=== PATIENT | male | born 1955 | race Caucasian/White ===

== ENCOUNTER 2021-01-03 10:02 | Emergency (ER) | payer OTHER, SELFPAY ==
[2021-01-03 10:25] VITALS: BP 125/87; PULSE 63; RESP 18; TEMP 36.6; O2SAT 100
--- NOTE | 2021-01-03 10:26 | ED.SKABFB ---
HPI - Skin/Abscess/Foreign Bdy General Chief complaint: Skin/Abscess/Foreign Body Stated complaint: splinter in arm Source: patient Mode of arrival: ambulatory Limitations: no limitations History of Present Illness HPI narrative: Patient is a 65-year-old male who presents with a foreign body in his arm. Patient reports he was cleaning out attic and hit rafters. He reports splinter to left upper arm. Abrasion noted. Palpable foreign body. Patient reports he is up-to-date on tetanus, he has no significant medical history or no known allergies to medications. MD complaint: foreign body Related Data Allergies Allergy/AdvReac Type Severity Reaction Status Date / Time No Known Allergies Allergy Verified 01/03/21 10:25 Review of Systems Review of Systems: CONSTITUTIONAL: Denies fever, chills, or sweats. EYES: Denies visual changes, redness, or discharge. ENT: Denies rhinorrhea, congestion, sore throat, or otalgia. CARDIOVASCULAR: Denies chest pain, palpitations, or edema. RESPIRATORY: Denies cough or dyspnea. GASTROINTESTINAL: Denies abdominal pain, nausea, vomiting, or diarrhea. GENITOURINARY: Denies dysuria or hematuria. SKIN: Foreign body in left upper arm MUSCULOSKELETAL: Denies back pain, joint pain, or myalgia. NEUROLOGIC: Denies headache, numbness, dizziness, or weakness. PSYCHIATRIC: Denies anxiety or depression. [facility] Past Medical History Medical History (Updated 01/03/21 @ 11:04 by MELANIE Newman) No significant past medical history Surgical History Surgical History Hx of cholecystectomy Social History Social History (Updated 01/03/21 @ 10:36 by MELANIE Newman) Smoking status: Never smoker Alcohol intake: current Alcohol use details: occasional Substance use: never Living arrangements: with family Occupation/Education: retired Comments At the time of signature, I have reviewed and agree with nursing past medical, surgical, social, and family history unless otherwise noted. Please see nursing chart for further information. There is no relevant family history pertinent to the presenting complaint. Exam Narrative: GENERAL: Well-appearing, well-nourished, and in no acute distress. HEAD: Normocephalic, atraumatic. EYES: No redness or drainage. ENT: Mucous membranes pink and moist. CHEST: No respiratory distress. HEART: Regular rate and rhythm. EXTREMITIES: Normal range of motion. No edema. SKIN: Palpable foreign body under skin and left upper arm NEURO: No focal deficits. Alert and oriented x3. Gait steady. PSYCH: Normal affect. No signs of depression or anxiety. Course Vital Signs Vital signs: Vital Signs Temperature 36.6 C 01/03/21 10:25 Pulse Rate 63 01/03/21 10:25 Respiratory Rate 18 01/03/21 10:25 Blood Pressure 125/87 01/03/21 10:25 Pulse Oximetry 100 01/03/21 10:25 Temperature 36.6 C 01/03/21 10:25 Pulse Rate 63 01/03/21 10:25 Respiratory Rate 18 01/03/21 10:25 Blood Pressure 125/87 01/03/21 10:25 Pulse Oximetry 100 01/03/21 10:25 Reviewed. Patient has been instructed to follow-up with his PCP regarding his blood pressure. Procedures Foreign Body Removal Foreign Body #1: Foreign Body Removal Date: 01/03/21 Foreign Body Removal Time: 10:59 Time Out Performed: yes Site: left and upper extremity Description of foreign body: other (Splinter 1 cm long) Sedation/Analgesia: other (1% lidocaine) Technique: removal with forceps, irrigation and other (Small .5 cm incision with #11 blade. Approximate 1 cm piece of wood removed, wound flushed and 1 suture (#5 Ethilon) placed after removal) Confirmed by:: patient report Complications: none Foreign Body Removal Narrative: 1.5 ml of 1% lidocaine injected at site on left upper arm. Small .5 cm incision with #11 blade. Approximate 1 cm piece of wood removed, wound flush
[2021-01-03 10:35] VITALS: BP 125/87; PULSE 63; RESP 18; TEMP 36.6; O2SAT 100
== END 2021-01-03 11:12 | disposition home or self-care (01) ==
PROVIDERS: Emergency Provider Nurse Practitioner
DX: S41.142A Puncture wound with foreign body of left upper arm, initial encounter (principal); W45.8XXA Other foreign body or object entering through skin, initial encounter; I20.9 Angina pectoris, unspecified; M19.042 Primary osteoarthritis, left hand; M19.041 Primary osteoarthritis, right hand
CPT/HCPCS: 10120; 99213; G0463

== ENCOUNTER 2024-05-15 13:21 | Observation (INO) | payer OTHER, SELFPAY ==
[2024-05-15] VITALS (12 sets, daily range): BP systolic 119–171; BP diastolic 69–88; PULSE 51–88; RESP 15–20; TEMP 36.4–37; O2SAT 95–100; BMI 27.9
--- NOTE | ~2024-05-15 | XR_ITS ---
EXAMINATION: XR chest 2V DATE: 05/15/2024 14:18 INDICATION: Chest pain. TECHNIQUE: Frontal and lateral views of the chest were obtained. COMPARISON: Chest 2 views 03/02/17, chest CT 03/02/17 FINDINGS: There is no pneumonia, pleural effusion, or pneumothorax. The heart size is normal. There i s a suture anchor in right shoulder. There is mild chronic anterior wedging of multiple thoracic vert ebral bodies. IMPRESSION: 1. No acute cardiopulmonary disease. Reviewed, dictated and finalized at location A. IN[facility] FLOOR MANAGER
--- NOTE | 2024-05-15 13:23 | ECG_ITS ---
Test Date: 2024-05-15 13:28:55 Measurements Intervals [place] Rate: 83 P: 18 KS: 165 QRS: -6 QRSD: 81 T: 12 QT: 336 QTc: 396 Interpretive Statements SINUS RHYTHM POSSIBLE INFERIOR MYOCARDIAL INFARCTION , PROBABLY OLD BASELINE ARTIFACT- I, II, III, AVR, AVL, AVF, V1-V2 ABNORMAL ECG No previous ECG available for comparison Electronically Signed On 05-15-2024 13:49:18 CAR [employer]ER by Sathya Britt D.O.
--- NOTE | 2024-05-15 13:33 | ED_ITS ---
HPI - Chest Pain General Chief Complaint: Chest Pain <Corie Tafoya PA-C - Last Filed: 05/15/24 17:12> Stated Complaint: CP <Corie Tafoya PA-C - Last Filed: 05/15/24 17:12> Time Seen by Provider: 05/15/24 13:33 <Corie Tafoya PA-C - Last Filed: 05/15/24 17:12> Focused HPI: This is a 69 year old male that presents to the ER for chest pain. Ongoing over the last hour. Reports he had walked up a hill prior to it starting. Reports he felt like he was having indigestion, chest tightness. He is not a smoker, no family history of CAD. Reports he had a cardiac cath about 4 years ago that was clean. GENERAL: Well-appearing, well-nourished, and in no acute distress. HEAD: Normocephalic, atraumatic. CHEST: Clear to auscultation. ?No respiratory distress. HEART: Regular rate and rhythm.? NEURO: ?Alert and oriented x3. Patient screened in triage and initial orders placed.? ?Additional care and disposition to be based upon?diagnostic testing and treatment. <Corie Tafoya PA-C - Last Filed: 05/15/24 17:12> History of Present Illness HPI narrative: Patient is a 69-year-old gentleman presents emergency department chief complaint of chest pain. Patient reports that he was walking up a hill and started having discomfort in his chest radiating to his arms. The patient states that he had a catheterization about 4 years ago that was negative < Felix Elliott MD - Last Filed: 05/15/24 16:35> Related Data Allergies/Adverse Reactions: Allergies Allergy/AdvReac Type Severity Reaction Status Date / Time No Known Allergies Allergy Verified 05/15/24 13:36 <Corie Tafoya PA-C - Last Filed: 05/15/24 17:12> Review of Systems 2 Review of Systems: A 10 system review of systems was completed on the patient and is negative except for what is stated in the HPI. Nursing and ancillary documentation was reviewed. <Felix Elliott MD - Last Filed: 05/15/24 16:35> PMFSH Past Medical History Medical History: Medical History No significant past medical history <Corie Tafoya PA-C - Last Filed: 05/15/24 17:12> Surgical History Surgical History: Surgical History Hx of cholecystectomy <Corie Tafoya PA-C - Last Filed: 05/15/24 17:12> Social History Social History: Social History Smoking status: Never smoker Alcohol intake: current Alcohol use details: occasional Substance use: never Living arrangements: with family Occupation/Education: retired <Corie Tafoya PA-C - Last Filed: 05/15/24 17:12> Exam 2 Narrative: GENERAL: Well-appearing, well-nourished, and in no acute distress. HEAD: Normocephalic, atraumatic. EYES: PERRLA and EOMI. ENT: Nares clear, no rhinorrhea or epistaxis. Mucous membranes moist. NECK: Supple. CHEST: Clear to auscultation. No respiratory distress. HEART: Regular rate and rhythm. No murmur heard. Normal peripheral pulses. ABDOMEN: Soft, nontender, nondistended, normal active bowel sounds. EXTREMITIES: Normal range of motion. No edema. SKIN: Warm, dry, no rash. NEURO: No focal deficits. Alert and oriented x3. PSYCH: Normal mood and affect. <Felix Elliott MD - Last Filed: 05/15/24 16:35> Course Vital Signs Vital signs: Vital Signs Temperature 97.8 F 05/15/24 13:26 Pulse Rate 88 05/15/24 13:26 Respiratory Rate 20 05/15/24 13:26 Blood Pressure 156/83 H 05/15/24 13:26 Pulse Oximetry 100 05/15/24 13:26 Oxygen Delivery Room Air 05/15/24 13:26 Temperature 97.8 F 05/15/24 13:26 Pulse Rate 51 L 05/15/24 16:36 Respiratory Rate 17 05/15/24 16:36 Blood Pressure 139/80 05/15/24 16:36 Pulse Oximetry 100 05/15/24 16:36 Oxygen Delivery Room Air 05/15/24 15:22 <Corie Tafoya PA-C - Last Filed: 05/15/24 17:12> Vital Signs Temperature 97.8 F 05/15/24 13:26 Pulse Rate 88 05/15/24 13:26 Respiratory Rate 20 05/15/24 13:26 Blood Pressure 156/83 H 05/15/24 13:26 Pulse Oximetry 100 05/15/24 13:26 Oxygen Delivery Room Air 05/15/24 13:26 Temperature 97.8 F 05/15/24 13:26 Pulse Rate 51 L 05/15/24 16:36 Respiratory Rate 17 05/15/24 16:36 Blood Pressure 139/80 05/15/24 16:36 Pulse Oximetry 100 05/15/24 16:36 Oxygen Delivery Room Air 05/15/24 15:22 <Felix Elliott MD - Last Filed: 05/15/24 16:35> MDM - Chest Pain MDM Narrative Medical decision making narrative: Differential diagnosis includes ACS, unstable angina, exertional angina The laboratory studies were obtained on the patient showed a normal CBC normal CMP initial troponin was negative EKG showed no acute ischemic changes Given the patient was having significant symptoms case was discussed with the hospital and will be admitted for observation <Corie Tafoya PA-C - Last Filed: 05/15/24 17:12> Differential diagnosis includes ACS, unstable angina, exertional angina The laboratory studies were obtained on the patient showed a normal CBC normal CMP initial troponin was negative EKG showed no acute ischemic changes Given the patient was having surgical symptoms case was discussed with the hospital and will be admitted for observation <Felix Elliott MD - Last Filed: 05/15/24 16:35> Lab Data Result diagrams: 05/15/24 13:35 05/15/24 13:35 <Corie Tafoya PA-C - Last Filed: 05/15/24 17:12> Labs: Lab Results 05/15/24 05/15/24 Range/Units 13:35 16:05 WBC 8.1 (4.5-10.0) K/mm3 RBC 5.10 (4.6-6.20) M/mm3 Hgb 14.2 (14.0-18.0) g/dL Hct 42.7 (42.0-52.0) % MCV 83.7 (80-100) fl MCH 27.8 (26-34) pg MCHC 33.3 (32-36) g/dl RDW 13.9 (11.5-14.5) % Plt Count 295 (150-375) k/mm3 MPV 9.3 (7.4-10.4) fl Immature Gran % (Auto) 0.4 (0-0.5) % Neut % (Auto) 62.2 (45.5-73.1) % Lymph % (Auto) 27.5 (18.3-44.2) % Webster % (Auto) 7.6 (2.6-8.5) % Eos % (Auto) 1.6 (0-4.4) % Baso % (Auto) 0.7 (0.2-1.2) % Lymph # (Auto) 2.23 (0.9-3.2) K/mm3 [place] # (Auto) 0.6 (0.1-0.6) K/mm3 Eos # (Auto) 0.1 (0-0.3) K/mm3 Baso # (Auto) 0.1 (0.0-0.1) K/mm3 Abs Immat Gran (auto) 0.03 (0.00-0.031) K/mm3 Absolute Neuts (auto) 5.0 (1.3-6.7) K/mm3 Absolute Nucleated RBC 0.000 (0.0-0.012) K/mm3 Nucleated RBC % 0.0 (0.0-0.2) % PT 13.8 (11.1-14.7) Seconds INR 1.0 APTT 33.4 (22.3-36.8) Seconds Sodium 139 (137-145) mmol/L Potassium 4.4 (3.4-5.0) mmol/L Chloride 103 (98-107) mmol/L Carbon Dioxide 22 (22-30) mmol/L Anion Gap 14 H (4-12) mmol/L BUN 27 H (9-20) mg/dL Creatinine 0.99 (0.7-1.3) mg/dL Estim Creat Clear Calc 55 ml/min Estimated GFR > 60 (59 - ) Glucose 113 H (65-110) mg/dL Calcium 9.4 (8.4-10.2) mg/dL Total Bilirubin 0.7 (0.2-1.3) mg/dL AST 28 (17-59) U/L ALT 25 (6-50) U/L Alkaline Phosphatase 79 (38-126) U/L Troponin I < 0.012 0.017 D (0.000-0.034) ng/mL Total Protein 7.0 (6.3-8.2) g/dL Albumin 4.3 (3.5-5.1) g/dL Lipase 66 (23-300) U/L <Corie Tafoya PA-C - Last Filed: 05/15/24 17:12> Lab Results 05/15/24 05/15/24 Range/Units 13:35 16:05 WBC 8.1 (4.5-10.0) K/mm3 RBC 5.10 (4.6-6.20) M/mm3 Hgb 14.2 (14.0-18.0) g/dL Hct 42.7 (42.0-52.0) % MCV 83.7 (80-100) fl MCH 27.8 (26-34) pg MCHC 33.3 (32-36) g/dl RDW 13.9 (11.5-14.5) % Plt Count 295 (150-375) k/mm3 MPV 9.3 (7.4-10.4) fl Immature Gran % (Auto) 0.4 (0-0.5) % Neut % (Auto) 62.2 (45.5-73.1) % Lymph % (Auto) 27.5 (18.3-44.2) % [place] % (Auto) 7.6 (2.6-8.5) % Eos % (Auto) 1.6 (0-4.4) % Baso % (Auto) 0.7 (0.2-1.2) % Lymph # (Auto) 2.23 (0.9-3.2) K/mm3 [place] # (Auto) 0.6 (0.1-0.6) K/mm3 Eos # (Auto) 0.1 (0-0.3) K/mm3 Baso # (Auto) 0.1 (0.0-0.1) K/mm3 Abs Immat Gran (auto) 0.03 (0.00-0.031) K/mm3 Absolute Neuts (auto) 5.0 (1.3-6.7) K/mm3 Absolute Nucleated RBC 0.000 (0.0-0.012) K/mm3 Nucleated RBC % 0.0 (0.0-0.2) % PT 13.8 (11.1-14.7) Seconds INR 1.0 APTT 33.4 (22.3-36.8) Seconds Sodium 139 (137-145) mmol/L Potassium 4.4 (3.4-5.0) mmol/L Chloride 103 (98-107) mmol/L Carbon Dioxide 22 (22-30) mmol/L Anion Gap 14 H (4-12) mmol/L BUN 27 H (9-20) mg/dL Creatinine 0.99 (0.7-1.3) mg/dL Estim Creat Clear Calc 55 ml/min Estimated GFR > 60 (59 - ) Glucose 113 H (65-110) mg/dL Calcium 9.4 (8.4-10.2) mg/dL Total Bilirubin 0.7 (0.2-1.3) mg/dL AST 28 (17-59) U/L ALT 25 (6-50) U/L Alkaline Phosphatase 79 (38-126) U/L Troponin I < 0.012 0.017 D (0.000-0.034) ng/mL Total Protein 7.0 (6.3-8.2) g/dL Albumin 4.3 (3.5-5.1) g/dL Lipase 66 (23-300) U/L <Felix Elliott MD - Last Filed: 05/15/24 16:35> Imaging Data Radiologist's impression: ITS Impressions Chest X-Ray 05/15/24 14:23 IMPRESSION: 1. No acute cardiopulmonary disease. <Corie Tafoya PA-C - Last Filed: 05/15/24 17:12> Critical Care Time Critical Care Time Critical Care Time: No <Corie Tafoya PA-C - Last Filed: 05/15/24 17:12> Discharge Plan Discharge Clinical Impression: Chest pain Qualifiers: Chest pain type: unspecified Qualified Code(s): R07.9 - Chest pain, unspecified <Corie Tafoya PA-C - Last Filed: 05/15/24 17:12> Patient Disposition: Still a Patient <Corie Tafoya PA-C - Last Filed: 05/15/24 17:12> Condition: Stable <Corie Tafoay PA-C - Last Filed: 05/15/24 17:12> Patient Language: Togolese <Corie Tafoya PA-C - Last Filed: 05/15/24 17:12> Prescriptions: No Action cephalexin 500 mg capsule 500 mg PO QID 5 Days Qty: 20 0RF <Corie Tafoya PA-C - Last Filed: 05/15/24 17:12> Follow-up/Referrals: PHYSICIAN NOT ON STAFF,NONSTAFF [Non-Staff] - <Corie Tafoya PA-C - Last Filed: 05/15/24 17:12> Time of Disposition: 16:33 <Corie Tafoya PA-C - Last Filed: 05/15/24 17:12> 16:33 <Felix Elliott MD - Last Filed: 05/15/24 16:35> Quality HEART score for chest pain patients History: moderately suspicious <Croie Tafoya PA-C - Last Filed: 05/15/24 17:12> ECG: non specific repolarization disturbance/LBTB/PM <Corie Tafoya PA-C - Last Filed: 05/15/24 17:12> Age: > or = to 65 years <Corie Tafoya PA-C - Last Filed: 05/15/24 17:12> Risk factors: no risk factors known <Corie Tafoya PA-C - Last Filed: 05/15/24 17:12> Troponin: < or = to 1x normal limit <Corie Tafoya PA-C - Last Filed: 05/15/24 17:12> Heart score: 4 <Corie Tafoya PA-C - Last Filed: 05/15/24 17:12>
[2024-05-15 13:42] LABS: Basophils Absolute Auto 0.1 K/mm3 (0.0-0.1); Basophils Percent Auto 0.7 % (0.2-1.2); Eosinophils Absolute Auto 0.1 K/mm3 (0-0.3); Eosinophils Percent Auto 1.6 % (0-4.4); Hematocrit 42.7 % (42.0-52.0); Hemoglobin 14.2 g/dL (14.0-18.0); Immature Granulocyte Absolute 0.03 K/mm3 (0.00-0.031); Immature Granulocyte Percent A 0.4 % (0-0.5); Lymphocytes Absolute Auto 2.23 K/mm3 (0.9-3.2); Lymphocytes Percent Auto 27.5 % (18.3-44.2); Mean Corpuscular HGB Conc 33.3 g/dl (32-36); Mean Corpuscular Hemoglobin 27.8 pg (26-34); Mean Corpuscular Volume 83.7 fl (80-100); Mean Platelet Volume 9.3 fl (7.4-10.4); Monocytes Absolute Auto 0.6 K/mm3 (0.1-0.6); Monocytes Percent Auto 7.6 % (2.6-8.5); Neutrophils Percent Auto 62.2 % (45.5-73.1); Platelet Count Result 295 k/mm3 (150-375); Red Cell Distribution Width 13.9 % (11.5-14.5); White Blood Count 8.1 K/mm3 (4.5-10.0)
[2024-05-15 13:54] LABS: Prothrombin Time 13.8 Seconds (11.1-14.7)
[2024-05-15 13:55] LABS: Partial Thromboplastin Time 33.4 Seconds (22.3-36.8)
[2024-05-15 13:56] LABS: Alanine Aminotransferase 25 U/L (6-50); Albumin Level 4.3 g/dL (3.5-5.1); Alkaline Phosphatase 79 U/L (38-126); Anion Gap 14 mmol/L (4-12); Aspartate Amino Transferase 28 U/L (17-59); Bilirubin,Total 0.7 mg/dL (0.2-1.3); Blood Urea Nitrogen 27 mg/dL (9-20); Calcium 9.4 mg/dL (8.4-10.2); Carbon Dioxide 22 mmol/L (22-30); Chloride 103 mmol/L (98-107); Estimated CRCL calculation 55 ml/min; Estimated Glomerular Filt Rate > 60; Glucose 113 mg/dL (65-110); Lipase 66 U/L (23-300); Potassium 4.4 mmol/L (3.4-5.0); Sodium 139 mmol/L (137-145)
[2024-05-15 14:05] LABS: Troponin I < 0.012 ng/mL (0.000-0.034)
--- OUTSIDE RECORDS SUMMARY | 2024-05-15 15:03 | XMS_ITS | Encounter Summary ---
Author Organization [facility] Address [address] [address] Care Team Providers Care Election Clerk Name Role Phone Elmer Mandujano MD Primary Care Provider + Nataliia Thomas RN Unavailable [phone] Elmer Mandujano MD Primary Care Provider + Fish Aguilera MD Primary Care Provider [phone] Encounter Details Date Type Department Care Team (Late st Contact Info) Description 05/11/2018 Lab Requisition [facility] Care D[facility] Lab [address], [facility] [place] [address] Brina Franco DO [address] [place] [address] Social History Tobacco Use Types Packs/Day Years Used Date Smoking Tobacco: Never Smokeless Tobacco: Never Alcohol Use Standard Drinks/Week Comments Yes 3.3 (1 standard drink = 0.6 oz p ure alcohol) occ Sex and Gender Information Value Date Recorded Sex Assigned at Not on file Gender Identity Not on file Sexual Orientation Not on file documented as of this encounter Functional Status Functional Status Response Date of Assess ment Is person deaf or have serious hearing difficult y? No 08/01/2016 Is person blind or have serious difficulty seein g? No 08/01/2016 Does person have serious dif ficulty walking/climbing stairs? No 08/01/2016 Does person have difficulty dressing/bathing? No 08/01/2016 Does person have difficulty doing errands alone? No 08/01/2016 Cognitive Status Response Date of Assessm ent Does person have difficulty concentrating/remembering/making decisions? No 08/01/2016 documented as of this encounter Plan of Treatment Upcoming Encounters Date Type Department Care Team (Late st Contact Info) Description 10/08/2024 11:00 AM CDT [facility] [address] [place] [address] Sanchez Becerril MD [address] [place] [address] documented as of this encounter Procedures Procedure Name Priority Date/Time Associated Diagnosis Comments DERMATOPATH TECHNICAL REPORT Routine 05/10/2018 12:00 AM WOOD CRAFTSMAN documented in this encounter Results * DERMATOPATH TECHNICAL REPORT (05/10/2018 12:00 AM WOOD CRAFTSMAN) Case Report Dermatopathology Report Case: [id number] Authorizing Provider: Brina Franco DO Collected: 05/10/2018 12:00 AM Pathologist: Maria Elena Chan MD Received: 05/11/2018 06:27 AM Specimen: Skin, right post shoulder 9 11:13 AM [facility] Clinical History Crusted pink papule. ISK R/O SCC non-healing. 9 11:13 AM [facility]MAT[facility] Gross Description Specimen A: Received is one formalin filled container labeled with the patient's name and designated right post shoulder. The specimen consists of a shave measuring [id number]. Jar 0. [facility] Dermatopathology Laboratory performed the technical component only. 9 11:13 AM [facility] Embedded Images 11:13 AM [facility]MAT[facility] DISCLAIMER An external and internal positive and negative controls are appropriate for the histochemical, immunohistochemical and immunofluorescence stain(s) in this case (if any), except where stated explicitly. The performance characteristics of the stain(s) cited in this report were developed and its performance characteristic determined by the Dermatopathology Laboratory at [facility], directed by Dr. Jessika Andrade. These tests need not be, and therefore are not, approved by the [place] Food and Drug Administration. The tests are used for clinical purposes. 9 11:13 AM [facility] Pathology/Cytolog y TISSUE SPECIMEN FROM SKIN / Unknown 05/10/2018 05/11/2018 6:27 AM WOOD CRAFTSMAN Brina Franco DO LAB - PATHOLOGY/C YTOLOGY ORDERABLES DERMATOPATHOLOGY LABORATORY [facility] - Department of Dermatology [address] Lab [address] [phone] documented in this encounter Visit Diagnoses Not on filedocumented in this encounter Care Teams Election Clerk Relationship Specialty Start Date End Date Elmer Mandujano MD [address] [place] [address] [place] [phone] PCP - General Internal Medicine 09/05/12 01/15/23 Elmer Mandujano MD [address] [place] [address] [place] [phone] PCP - General Internal Medicine 01/16/23 03/28/24 Fish Aguilera MD [facility] [address] [place], [place] [id number] PCP - General Internal Medicine 03/29/24 Nataliia Thomas RN Heel Pricker 08/25/14 documented as of this encounter
--- OUTSIDE RECORDS SUMMARY | 2024-05-15 15:03 | XMS_ITS | Clinical Summary ---
Author Organization [facility] Address [address] [place] [address] Care Team Providers Care Health Manager Name Role Phone Elmer Mandujano MD Primary Care Provider [phone] Allergies No known active allergies Medications sildenafil 20 MG tablet TAKE 2 TO 5 TABLETS BY MOUTH ONE HOUR BEFORE SEX. MAXIMUM DAILY DOSE IS 5 TABLETS 07/10/2021 Active ibuprofen (MOTRIN) 200 MG tablet Take 200 mg by mouth every 6 (six) hours as needed for Pain. Active Active Problems No known active problems Family History Medical History Relation Comments Alzheimers Father Relation Status Comments Father Mother Social History Tobacco Use Types Packs/Day Years Used Date Smoking Tobacco: Never Smokeless Tobacco: Never Tobacco Cessation:Counseling Given: No Comments:not a smoker Alcohol Use Standard Drinks/Week Comments Yes 1.7 (1 standard drink = 0.6 oz p ure alcohol) PHQ-2 Answer Date Recorded PHQ-2 Score - If the patient scores above 3, please move on to questions 3-9 0 05/17/2021 Sex and Gender Information Value Date Recorded Sex Assigned at Not on file Legal Sex Male 7:27 PM CDT Gender Identity Male 05/14/2021 8:47 AM INFORMATION TECHNOLOGY SPECIALIST Sexual Orientation Straight 05/14/2021 8: 47 AM INFORMATION TECHNOLOGY SPECIALIST Last Filed Vital Signs Vital Sign Reading Time Taken Comments Blood Pressure 133/82 01/10/2022 9:20 AM CDT Pulse 77 01/10/2022 9:20 AM CDT Temperature 36.6 C (97.9 F) 01/10/2022 9:20 AM CDT Respiratory Rate - - Oxygen Saturation - - Inhaled Oxygen Concentration - - Weight 71.9 kg (158 lb 9.6 oz) 01/10/2022 9:20 A M CDT Height 167.6 cm (5' 6 ) 01/10/2022 9:20 AM CDT Body Mass Index 25.6 01/10/2022 9:20 AM CDT Plan of Treatment Health Maintenance Due Date Last Done Comments Colorectal Cancer Screening Colonoscopy (10 Years) 1953 Hepatitis C 1971 DTaP, Tdap and Td Vaccines (1 - Tdap) 1972 Annual Medicare Wellness Visit 2018 Pneumococcal Vaccine: 65+ Years (2 of 2 - PCV) 01/19/2021 01/20/2020 COVID-19 Vaccine (3 - season) 2023 11/30/2020, 11/09/2020 Influenza Adult (#1) 2023 02/01/2021, 01/20/20 20 RSV Immunization or 60+ Years (1 - 1-dose 75+ series) 2028 Zoster Vaccines Completed 12/14/2018, 04/2018, 09/25/2018, Additional history exists Meningococcal B Vaccine Aged Out No l onger eligible based on patient's age to complete this topic Meningococcal Vaccine Aged Out No maria de jesus sunni eligible based on patient's age to complete this topic RSV Immunizations Under 20 Months Aged Out No longer eligible based on patient's age to complete this topic Insurance [employer] Care Teams Health Manager Relationship Specialty Start Date End Date Elmer Mandujano MD [address] [place] [id number] PCP - General INTERNAL MEDICINE 07/31/20
--- OUTSIDE RECORDS SUMMARY | 2024-05-15 15:03 | XMS_ITS | Clinical Summary ---
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 Gender Identity Not on file Sexual Orientation Not on file Last Filed Vital Signs Vital Sign Reading Time Taken Comments Blood Pressure 110/61 07/29/2016 2:54 PM CDT Pulse 68 07/29/2016 2:54 PM CDT Temperature 36.9 C (98.4 F) 07/29/2016 2:54 PM CDT Respiratory Rate 18 07/29/2016 2:54 PM CDT Oxygen Saturation 99% 07/29/2016 2:54 PM CDT Inhaled Oxygen Concentration - - Weight 72.6 kg (160 lb) 07/29/2016 2:54 PM CDT Height 167.6 cm (5' 6 ) 07/29/2016 2:54 PM CDT Body Mass Index 25.82 07/29/2016 2:54 PM CDT Plan of Treatment Health Maintenance Due Date Last Done Comments DTAP/TDAP/TD VACCINES (1 - Tdap) 1972 COLORECTAL SCREENING 1998 Colorectal Cancer Screening 1998 FIT-DNA Q 3 years 1998 FIT/FOBT Q 1 year 1998 Flex Sig/CT Colonography Q 5 years 1998 PNEUMOCOCCAL VACCINE 65+ YEARS (1 of 1 - PCV) 04/02/19 04 ZOSTER VACCINE (1 of 2) 2003 INFLUENZA VACCINE (#1) 2023 RSV VACCINE (60+ or ) (1 - 1-dose 75+ series) 2028 Insurance [facility] [id number] [facility] Address: [facility] [id number] [place] [address] Care Teams Plunger Scoop Operator Relationship Specialty Start Date End Date Jona Wall MD [address] [phone] PCP - General 09/06/04
--- OUTSIDE RECORDS SUMMARY | 2024-05-15 15:03 | XMS_ITS | Clinical Summary ---
Author Organization [facility] Address [address] [place] [address] Care Team Providers Care Director Stars Name Role Phone Nataliia Thomas RN Unavailable [phone] Fish Aguilera MD Primary Care Provider [phone] Source Comments [facility],non-owned Affiliates and Associated Physician Practices is amultiple site organization consisting of ambulatory clinics and hospital sitesin [place], [place], [place] and [place]. This disclosure is being madepursuant to the Care Everywhere program and may not contain all information available regarding this patient. Last updated 17.[facility] Allergies No known active allergies Medications * Be aware that medications may not be up to date on this document. Alwaysverify current medications with the patient. Medication Sig Dispensed Refills Start Date End Date Status Flomax 0.4 MG capsule TAKE 1 CAPSULE BY MOUTH ONCE DAILY HALF AN HOUR FOLLOWING THE SAME MEAL EACH DAY 03/06/2024 Active venlafaxine XR 24hr (Effexor XR) 75 MG capsule Take 1 (one) capsule by mouth daily with breakfast 30 capsule 5 04/01/2024 Active guaiFENesin ER 12hr (Mucinex) 600 MG tablet Take by mouth every 12 hours 03/21/2024 04/19/2024 Active Problems Problem Noted Date Diagnosed Date Chest pain 07/30/2016 Acute diverticulitis of intestine 08/24/2014 Anxiety Encounters Date Type Department Care Team Description 04/01/2024 3:00 PM CYCLING INSTRUCTOR Office Visit [facility] Neurosciences [address] [place] [address] Sanchez Becerril MD Vestibular migraine (Primary Dx); Ocular migraine; Mild cerebral atrophy (HCC); RBD (REM behavioral disorder); Idiopathic peripheral neuropathy 02/13/2024 10:00 AM CYCLING INSTRUCTOR - 02/13/2024 11:59 PM CYCLING INSTRUCTOR Hospital Encounter [facility] [address], [address] [place] [address] Sanchez Becerril MD Discharge Disposition: Home or Self Care from Last 3 Months Family History Medical History Relation Name Comments Cancer - Prostate Father Hypertension Mother Cancer - Colon Neg Hx Relation Name Status Comments Father Mother Social History Tobacco [...] Sign Reading Time Taken Comments Blood Pressure 120/74 04/01/2024 3:02 PM CYCLING INSTRUCTOR Pulse 73 04/01/2024 3:02 PM CYCLING INSTRUCTOR Temperature 36.6 C (97.9 F) 08/01/2016 12:01 PM CDT Respiratory Rate 16 08/01/2016 12:01 PM CDT Oxygen Saturation 99% 08/01/2016 12:01 PM CDT Inhaled Oxygen Concentration - - Weight 78.9 kg (174 lb) 04/01/2024 3:02 PM CYCLING INSTRUCTOR Height 167.6 cm (5' 6 ) 04/01/2024 3:02 PM CYCLING INSTRUCTOR Body Mass Index 28.08 04/01/2024 3:02 PM CYCLING INSTRUCTOR Plan of Treatment Upcoming Encounters Date Type Department Care Team (Late st Contact Info) Description 10/08/2024 11:00 AM CDT Office Visit [facility] [address] [place] [address] Sanchez Becerril MD [address] [place] [address] Health Maintenance Due Date Last Done Comments COLOGUARD (AGES 45-75) - COL ON CA SCREENING 1955 COLON MONITORING 1955 COLONOSCOPY - COLON CA SCREENING 1955 CT COLONOGRAPHY - COLON CA SCREENING 1955 Colorectal Cancer Screening 1955 FIT - COLON CA SCREENING 1955 FLEX SIG - COLON CA SCREENING 1955 LIPID TESTING 1955 HEPATITIS C SCREENING 03/29/1971 DTAP/TDAP/TD VACCINES (1 - Tdap) 1972 PNEUMOCOCCAL VACCINE 50+ (1 of 1 - PCV) 2003 ZOSTER VACCINE (1 of 2) 2003 Respiratory Syncytial Virus (RSV) Vaccine Pt: or over 60 yrs (1 - Risk 60-74 years 1-dose series) 2013 COVID-19 VACCINE (1 - 2023-2 5 season) 2023 INFLUENZA VACCINE (#1) 2023 SCREENING FOR DIABETES 02/07/2024 7, 08/25/2014, 08/24/2014 DEPRESSION SCREENING 03/20/2024 MEDICARE AWV CALENDAR YEAR 2024 HEPATITIS B VACCINE Aged Out No longe r eligible based on patient's age to complete this topic HIB VACCINE Aged Out No longer eligi ble based on patient's age to complete this topic HPV VACCINE Aged Out No longer eligi ble based on patient's age to complete this topic MENINGOCOCCAL (Group B) VACCINE Aged Out No longer eligible b ased on patient's age to complete this topic MENINGOCOCCAL VACCINE Aged Out No maria de jesus sunni eligible based on patient's age to complete this topic Medical Devices Implanted Type Area Rn Manager Device Identifier Shelf Expiration Date Model / Serial / Lot Mesh Implanted:Qty: 1 on 10/16/2012 by Shiv Lowe MD at [facility] [employer] 04/19/2017 [facility] / / [id number] Description:extended Procedures Procedure Name Priority Date/Time Associated Diagnosis Comments EMG WITH NERVE CONDUCTION STUDY Routine 02/13/2024 1:30 PM CYCLING INSTRUCTOR Balance problem COMPREHENSIVE METABOLIC PANEL STAT 07/29/2016 4:10 PM CDT from Last 3 Months or Most Recently Relevant to Health Maintenance Results * EMG WITH NERVE CONDUCTION STUDY (02/13/2024 1:30 PM CYCLING INSTRUCTOR) Narrative Sanchez Becerril MD - 02/13/2024 1:30 PM [facility] Sanchez Becerril MD 02/13/2024 1:33 PM [facility] [address] [place] [address], [address] [place], [place] [phone] Patient: Jono Nova V #: Physician: Sanchez Becerril MD Sex: Male ID#: [id number] Ref Phys: Sanchez Becerril MD. : 1955 Date: 02/13/2024 Resident Services Director: Odilia Fraser Patient Complaints: The patient is a 68 year old male with complaints of numbness and tingling in bilateral lower extremities. The symptoms have been present for 1+ years. Query peripheral neuropathy. EMG & NCV Findings: The left tibial motor nerve conduction study showed prolonged onset latency (6.7 ms). The left superficial peroneal antidromic sensory Anti Sensory nerve conduction study showed no response (12 cm) and no response (Site 2). The right superficial peroneal antidromic sensory Anti Sensory nerve conduction study showed no response (12 cm). The left sural antidromic sensory Anti Sensory and the right sural antidromic sensory Anti Sensory nerve conduction studies showed small amplitude (L2.0, R4.4 V). All remaining nerve conduction studies (as indicated in the following tables) were normal. Left vs. Right side comparison data for the peroneal motor nerve indicates abnormal L-R velocity difference (Poplt-B Fib, 36 m/s). The tibial motor nerve indicates abnormal L-R latency difference (2.2 ms). All F Wave latencies were within normal limits. Left vs. Right comparison data for the peroneal F wave indicates abnormal L-R latency difference (6.30 ms). All remaining F Wave left vs. right side latency differences were within normal limits. H-reflex studies indicate that the left tibial H-reflex has prolonged latency (40.00 ms). The right tibial H-reflex has prolonged latency (40.00 ms). All H Reflex left vs. right side latency differences were within normal limits. Needle EMG evaluation of the left extensor digitorum brevis, the right extensor digitorum brevis, and the right anterior tibialis muscles showed large motor unit amplitude, long motor unit duration, and moderately reduced recruitment. The left FlexDigLongus, the left anterior tibialis, and the right posterior tibialis muscles showed large motor unit amplitude, long motor unit duration, and mildly reduced recruitment. The left medial gastrocnemius muscle showed long motor unit duration and mildly reduced recruitment. The right medial gastrocnemius and the right vastus lateralis muscles showed mildly reduced recruitment. EMG of all remaining muscles (as indicated in the following table) was normal. 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 This is supported by findings of absent or low sensory potentials, borderline motor conduction, chronic neurogenic changes noted in needle EMG study. Possible etiologies could include metabolic, nutritional deficiencies, toxic, inflammatory etc. Please correlate clinically Sanchez Becerril MD Diplomate, [place] [employer] Board Certified in Clinical Neurophysiology and Neurology Nerve Conduction Studies Motor Summary Table Stim Site NR Onset (ms) Norm Onset (ms) O-P Amp (mV) Norm O-P Amp Neg Area (mVms) Site1 Site2 Delta-0 (ms) Dist (cm) Dinesh (m/s) Norm Dinesh (m/s) Left Peroneal Motor (Ext Dig Brev) 35.5 C Ankle 3.8 <6.6 4.0 >2.5 10.85 B Fib Ankle 7.8 35.0 45 >42 B Fib 11.6 3.3 10.44 Poplt B Fib 1.8 9.0 50 >42 Poplt 13.4 2.3 7.85 Right Peroneal Motor (Ext Dig Brev) 35.5 C Ankle 3.9 <6.6 6.5 >2.5 14.02 B Fib Ankle 8.4 35.5 42 >42 B Fib 12.3 5.5 13.45 Poplt B Fib 1.1 9.5 86 >42 Poplt 13.4 5.3 12.93 Left Tibial ADH Motor (Abd Huynh Brev) 35.5 C Ankle 6.7 <6.6 7.9 >2.0 16.25 Knee Ankle 8.7 38.0 44 >42 Knee 15.4 5.5 13.82 Right Tibial ADH Motor (Abd Huynh Brev) 35.5 C Ankle 4.5 <6.6 7.0 >2.0 19.60 Knee Ankle 9.1 38.0 42 >42 Knee 13.6 4.5 15.45 Right Ulnar Motor (Abd Dig Minimi) 35.5 C Wrist 2.8 <3.6 10.1 >5 31.57 B Elbow Wrist 4.3 24.5 57 >48 B Elbow 7.1 9.5 31.67 A Elbow B Elbow 2.0 10.0 50 >48 A Elbow 9.1 7.2 25.03 Anti Sensory Summary Table Stim Site NR Onset (ms) Peak (ms) Norm Onset (ms) O-P Amp ( V) Norm O-P Amp Site1 Site2 Delta-P (ms) Dist (cm) Dinesh (m/s) Norm Dinesh (m/s) Right Radial Anti Sensory (Snuff Box) 35.5 C Wrist 1.3 1.8 23.2 >15 Wrist Snuff Box 1.8 10.0 56 Left Sup Peron Anti Sensory (Ant Lat Mall) 35.5 C 12 cm NR >5.0 12 cm Ant Lat Mall 12.0 Site 2 NR Right Sup Peron Anti Sensory (Ant Lat Mall) 35.5 C 12 cm NR >5.0 12 cm Ant Lat Mall 12.0 Left Sural Anti Sensory (Lat Mall) 35.5 C Calf 3.4 4.1 2.0 >5.0 Calf Lat Mall 4.1 14.0 34 Right Sural Anti Sensory (Lat Mall) 35.5 C Calf 2.8 3.7 4.4 >5.0 Calf Lat Mall 3.7 14.0 38 F Wave Studies NR F-Lat (ms) Lat Norm (ms) L-R F-Lat (ms) L-R Lat Norm Left Peroneal (Mrkrs) (EDB) 35.5 C 48.89 <60 6.30 <5.1 Right Peroneal (Mrkrs) (EDB) 35.5 C 55.19 <60 6.30 <5.1 Left Tibial (Mrkrs) (Abd Hallucis) 35.5 C 60.92 <61 0.79 <5.7 Right Tibial (Mrkrs) (Abd Hallucis) 35.5 C 60.13 <61 0.79 <5.7 Right Ulnar (Mrkrs) (Abd Dig Min) 35.5 C 30.97 <36 <2.5 H Reflex Studies NR H-Lat (ms) Lat Norm (ms) L-R H-Lat (ms) L-R Lat Norm Left Tibial (Soleus) 35.5 C 40.00 <34 0.00 <2.0 Right Tibial (Soleus) 35.5 C 40.00 <34 0.00 <2.0 EMG Side Muscle Nerve Root Insrt Fibs Psw Fasc Amp Dur Poly Recrt Comm Left Ext Dig Brev Dp Br Peron L5, S1 Nml Nml Nml 0 Incr Incr 0 Reduced (mod) Left FlexDigLongus Tibial L5-S1 Nml Nml Nml 0 Incr Incr 0 Reduced (mild) Left MedGastroc Tibial S1-2 Nml Nml Nml 0 Nml Incr 0 Reduced (mild) Left AntTibialis Dp Br Peron L4-5 Nml Nml Nml 0 Incr Incr 0 Reduced (mild) Left VastusLat Femoral L2-4 Nml Nml Nml 0 Nml Nml 0 Nml Right Ext Dig Brev Dp Br Peron L5, S1 Nml Nml Nml 0 Incr Incr 0 Reduced (mod) Right PostTibialis Tibial L5, S1 Nml Nml Nml 0 Incr Incr 0 Reduced (mild) Right MedGastroc Tibial S1-2 Nml Nml Nml 0 Nml Nml 0 Reduced (mild) Right AntTibialis Dp Br Peron L4-5 Nml Nml Nml 0 Incr Incr 0 Reduced (mod) Right VastusLat Femoral L2-4 Nml Nml Nml 0 Nml Nml 0 Reduced (mild) Left Lower LS paraspinal Rami L4-S2 Nml Nml Nml 0 Nml Nml 0 Nml Right Lower LS paraspinal Rami L4-S2 Nml Nml Nml 0 Nml Nml 0 Nml Waveforms: Sanchez Becerril MD NEUROLOGY ORDERABLES * (ABNORMAL) COMPREHENSIVE METABOLIC PANEL (07/29/2016 4:10 PM CDT) [facility] Glucose 99 74 - 106 mg/dL 07/29/2016 4:41 PM CDT [facility] Sodium 143 136 - 145 mmol/L 07/29/2016 4:41 PM CDT [facility] Potassium 4.1 3.5 - 5.1 mmol/L 07/29/2016 4:41 PM CDT [facility] Chloride 109(H) 98 - 107 mmol/L 07/29/2016 4:41 PM [facility] CO2 28 22 - 31 mmol/L 07/29/2016 4:41 PM CDT [facility] Calcium 8.6 8.5 - 10.1 mg/dL 07/29/2016 4:41 PM [facility] Anion Gap 6(L) 8 - 16 mmol/L 07/29/2016 4:41 PM T [facility] BUN 21 7 - 21 mg/dL 07/29/2016 4:41 PM [facility] Creatinine 1.08 0.50 - 1.30 mg/dL 07/29/2016 4:41 PM [facility] Alkaline Phosphatase 67 38 - 126 U/L 07/29/2016 4:41 PM [facility] ALT 23 13 - 61 U/L 07/29/2016 4:41 PM [facility] AST 14 5 - 40 U/L 07/29/2016 4:41 PM [facility] Protein Total 6.3(L) 6.4 - 8.2 gm/dL 07/29/2016 4:41 PM [facility] Albumin 3.9 3.4 - 5.0 gm/dL 07/29/2016 4:41 PM [facility] Bilirubin Total 0.4 0.2 - 1.0 mg/dL 07/29/2016 4:41 PM [facility] eGFR by MDRD >60 >60 mL/min/1.7 3m2 07/29/2016 4:41 PM [facility] eGFR by MDRD >60 >60 mL/min/1.7 3m2 07/29/2016 4:41 PM [facility] Blood BLOOD SPECIMEN / Unknown 07/29/2016 4:10 PM CDT 07/29/2016 4:17 PM T Jona Lizama MD LAB - CHEMISTRY ORD ERABLES [facility] [address] [id number] from Last 3 Months or Most Recently Relevant to Health Maintenance Advance Directives * Full Code (Latest Code Status on File) Date Activated Date Inactivated Comments 08/01/2016 8:31 AM 08/01/2016 5:39 PM * Full Code Date Activated Date Inactivated Comments 07/30/2016 3:20 AM 08/01/2016 8:31 AM * Full Code Date Activated Date Inactivated Comments 07/29/2016 7:39 PM 07/30/2016 3:20 AM * Full Code Date Activated Date Inactivated Comments 08/24/2014 9:35 PM 08/27/2014 9:57 AM Care Teams Director Stars Relationship Specialty Start Date End Date Fish Aguilera MD [address] [address] PCP - General Internal Medicine 03/29/24 Nataliia Thomas, RN [employer] 08/25/14
--- OUTSIDE RECORDS SUMMARY | 2024-05-15 15:03 | XMS_ITS | Patient Health Summary ---
Author Organization [facility] Address [address] [place] [address] Care Team Providers Care Applications Chemist Name Role Phone Nataliia Thomas RN Unavailable [phone] Fish Aguilera MD Primary Care Provider [phone] Note from [facility],non-owned Affiliates and Associated Physician Practices is amultiple site organization consisting of ambulatory clinics and hospital sitesin [place], [place], [place] and [place]. This disclosure is being madepursuant to the Care Everywhere program and may not contain all information available regarding this patient. Last updated 17.[facility] Allergies No known active allergies Medications * Be aware that medications may not be up to date on this document. Alwaysverify current medications with the patient. * Flomax 0.4 MG capsule(Started 03/06/2024) TAKE 1 CAPSULE BY MOUTH ONCE DAILY HALF AN HOUR FOLLOWING THE SAME MEAL EACH DAY * venlafaxine XR 24hr (Effexor XR) 75 MG capsule(Started 04/01/2024) Take 1 (one) capsule by mouth daily with breakfast 5 refills by 04/01/2025 Ended Medications* guaiFENesin ER 12hr (Mucinex) 600 MG tablet(Started 03/21/2024) () Take by mouth every 12 hours Active Problems Problem Noted Date Diagnosed Date Chest pain 07/30/2016 Acute diverticulitis of intestine 08/24/2014 Anxiety Social History Tobacco Use Types Packs/Day Years [...] Comments Blood Pressure 120/74 04/01/2024 3:02 PM [employer] Pulse 73 04/01/2024 3:02 PM [employer] Temperature 36.6 C (97.9 F) 08/01/2016 12:01 PM CDT Respiratory Rate 16 08/01/2016 12:01 PM CDT Oxygen Saturation 99% 08/01/2016 12:01 PM CDT Inhaled Oxygen Concentration - - Weight 78.9 kg (174 lb) 04/01/2024 3:02 PM [employer] Height 167.6 cm (5' 6 ) 04/01/2024 3:02 PM [employer] Body Mass Index 28.08 04/01/2024 3:02 PM [employer] Medical Devices Implanted Type Area Business Controller Device Identifier Shelf Expiration Date Model / Serial / Lot Mesh Implanted:Qty: 1 on 10/16/2012 by Shiv Lowe MD at [facility] [employer] 04/19/2017 [facility] / / [id number] Description:extended Procedures * EMG WITH NERVE CONDUCTION STUDY(Performed 02/13/2024) Performed for Balance problem * C-REACTIVE PROTEIN(Performed 02/07/2024) Performed for Balance problem * VITAMIN B12 FOLATE PANEL(Performed 02/07/2024) Performed for Balance problem * CELIAC AB SCREEN W REFLEX(Performed 02/07/2024) Performed for Balance problem * ERYTHROCYTE SEDIMENTATION RATE(Performed 02/07/2024) Performed for Balance problem * IMMUNOFIXATION BLOOD(Performed 02/07/2024) Performed for Balance problem * MYNOR BLOOD SCREEN W/REFLEX TITER(Performed 02/07/2024) Performed for Balance problem * METHYLMALONIC ACID BLOOD(Performed 02/07/2024) Performed for Balance problem * COPPER BLOOD(Performed 02/07/2024) Performed for Balance problem * MRI BRAIN WO CONTRAST(Performed 01/16/2023) Performed for Dizziness * XR FINGERS RIGHT 2VW OR MORE(Performed 12/23/2022) Performed for Injury of right hand, initial encounter * DERMATOPATHOLOGY(Performed 09/16/2021) * DERMATOPATHOLOGY(Performed 05/17/2021) * XR KNEE RIGHT 4VW OR MORE(Performed 02/19/2019) Performed for Chronic pain of left knee * DERMATOPATH TECHNICAL REPORT(Performed 05/10/2018) * CARDIAC RHYTHM STRIP ORDER(Performed 08/03/2016) * CARDIAC EKG ORDER(Performed 08/03/2016) * CARDIAC PROCEDURE ORDER(Performed 08/03/2016) * CARDIAC EKG ORDER(Performed 08/03/2016) * CARDIAC CATH CONSULT(Performed 08/01/2016) * CARDIAC CATH(Performed 08/01/2016) * NM MYOCARD PERF REST STRESS(Performed 07/30/2016) Performed for Chest pain on exertion * STRESS TEST NUCLEAR(Performed 07/30/2016) Performed for Other chest pain * TROPONIN I(Performed 07/29/2016) * BLOOD GASES ARTERIAL(Performed 07/29/2016) * TROPONIN I(Performed 07/29/2016) * XR CHEST 2VW(Performed 07/29/2016) Performed for Other chest pain * CBC W AUTO DIFFERENTIAL(Performed 07/29/2016) * COMPREHENSIVE METABOLIC PANEL(Performed 07/29/2016) * TROPONIN I(Performed 07/29/2016) * EKG 12-LEAD(Performed 07/29/2016) Performed for Other chest pain * CT ABDOMEN PELVIS W CONTRAST(Performed 09/10/2014) Performed for Diverticulitis of colon * CBC W AUTO DIFFERENTIAL(Performed 08/26/2014) * COMPREHENSIVE METABOLIC PANEL(Performed 08/25/2014) * CBC W AUTO DIFFERENTIAL(Performed 08/25/2014) * CULTURE BLOOD(Performed 08/24/2014) * CULTURE BLOOD(Performed 08/24/2014) * LACTIC ACID BLOOD(Performed 08/24/2014) * CT ABDOMEN PELVIS W CONTRAST(Performed 08/24/2014) Performed for Acute abdominal pain * LIPASE BLOOD(Performed 08/24/2014) * COMPREHENSIVE METABOLIC PANEL(Performed 08/24/2014) * CBC W AUTO DIFFERENTIAL(Performed 08/24/2014) * URINALYSIS REFLEX MICROSCOPIC REFLEX CULTURE(Performed 08/24/2014) * STRESS TEST TREADMILL (NO IMAGING)(Performed 06/13/2014) Performed for Chest discomfort * ECHOCARDIOGRAM STRESS(Performed 06/13/2014) Performed for Chest discomfort * CARDIAC RHYTHM STRIP ORDER(Performed 10/18/2012) * PATHOLOGY TISSUE EXAM (STL)(Performed 10/16/2012) Performed for Inguinal Hernia * REPAIR INGUINAL HERNIA(Performed 10/16/2012) Performed for Inguinal Hernia Without Mention Of Obstruction Or Gangrene, Unilateral Or Unspecified, (Not Specified As Recurrent) * DERMATOPATHOLOGY(Performed 07/19/2012) Results * EMG WITH NERVE CONDUCTION STUDY (02/13/2024 1:30 PM [employer]) Narrative Sanchez Becerril MD - 02/13/2024 1:30 PM [employer] Sanchez Becerril MD 02/13/2024 1:[address], [address] [phone] Patient: Jeffy Becerra V #: Physician: Sanchez Becerril MD Sex: Male ID#: [id number] Ref Phys: Sanchez Becerril MD. : 1955 Date: 02/13/2024 Weapons Mechanic: Odilia Fraser Patient Complaints: The patient is [...] Please correlate clinically Sanchez Becerril MD Diplomate, [place] [employer] and Neu[employer] Board Certified [...] Waveforms: Sanchez Becerril MD NEUROLOGY ORDERABLES * C-REACTIVE PROTEIN (CRP) (02/07/2024 10:43 AM [employer]) C-Reactive Protein <1 0 - 10 mg/L [facility] INSURANCE BILL Blood BLOOD SPECIMEN / Unknown 02/07/2024 10:43 AM [employer] 02/07/2024 Narrative [facility] INSURANCE BILL - 02/08/2024 6:15 AM [employer] Performed at: [address] [place] [id number] Technician Plant And Maintenance: Omar Conway PhD, Phone: [phone] Sanchez Becerril MD LAB - CHEMISTRY MARY ANNE WOLFE Performing Organization Address [facility] Phone Number [facility] INSURANCE BILL [address] [place] [address] * VITAMIN B12 FOLATE PANEL (02/07/2024 10:43 AM [employer]) Pathologist [facility] Vitamin B12 1,005 232 - 1,245 pg/mL [facility] INSURANCE BILL Folate 8.0 >3.0 ng/mL [facility] INSURANCE BILL Comment: A serum folate concentration of less than 3.1 ng/mL is considered to represent clinical deficiency. Blood BLOOD SPECIMEN / Unknown 02/07/2024 10:43 AM [employer] 02/07/2024 Narrative [facility] INSURANCE BILL - 02/08/2024 6:15 AM [employer] Performed at: [address] [place] [id number] Technician Plant And Maintenance: Omar Conway PhD, Phone: [phone] Sanchez Becerril MD LAB - CHEMISTRY MARY ANNE WOLFE Performing Organization Address [facility] Phone Number [facility] INSURANCE BILL [address] [place] [address] * CELIAC AB SCREEN W REFLEX (02/07/2024 10:42 AM [employer]) Antigliadin Antibody IgA 3 0 - 19 units [facility] INSURANCE BILL Comment: Negative 0 - 19 Weak Positive 20 - 30 Moderate to Strong Positive >30 TTG Antibody IgA <2 0 - 3 U/mL [facility] INSURANCE BILL Comment: Negative 0 - 3 Weak Positive 4 - 10 Positive >10 Tissue Transglutaminase (tTG) has been identified as the endomysial antigen. Studies have demonstr- ated that endomysial IgA antibodies have over 99% specificity for gluten sensitive enteropathy. IgA Quantitative 131 61 - 437 mg/dL [facility] INSURANCE BILL Blood BLOOD SPECIMEN / Unknown 02/07/2024 10:42 AM [employer] 02/07/2024 Narrative [facility] INSURANCE BILL - 02/08/2024 3:10 PM [employer] Performed at: [address] [id number] Technician Plant And Maintenance: Omar Conway PhD, Phone: [phone] Sanchez Becerril MD LAB - SEROLOGY ORDER KOURTNEY Performing Organization Address [facility] Co de Phone Number [facility] INSURANCE BILL [address] [place] [address] * IMMUNOFIXATION BLOOD (02/07/2024 10:41 AM [employer]) Immunofixation Result Comment [facility] INSURANCE BILL Comment:No monoclonality det ected. IgG Quantitative 901 603 - 1,613 mg/dL [facility] INSURANCE BILL IgA Quantitative 124 61 - 437 mg/dL [facility] INSURANCE BILL IgM Quantitative 88 20 - 172 mg/dL [facility] INSURANCE BILL Blood BLOOD SPECIMEN / Unknown 02/07/2024 10:41 AM [employer] 02/07/2024 Narrative [facility] INSURANCE BILL - 02/09/2024 5:09 PM [employer] Performed at: [address] [id number] Technician Plant And Maintenance: Omar Conway PhD, Phone: [phone] Sanchez Becerril MD LAB - CHEMISTRY ORDE RABLES Performing Organization Address [facility]/ZIP Co de Phone Number [facility] INSURANCE BILL [address] [place] [address] * MYNOR BLOOD SCREEN W/REFLEX TITER (02/07/2024 10:41 AM [employer]) MYNOR Negative [facility] INSURANCE BILL Comment: Negative <1:80 Borderline 1:80 Positive >1:80 ICAP nomenclature: AC-0 For more information about Hep-2 cell patterns use ANApatterns.org, the official website for the International Consensus on Antinuclear Antibody (MYNOR) Patterns (ICAP). Blood BLOOD SPECIMEN / Unknown 02/07/2024 10:41 AM [employer] 02/07/2024 Narrative [facility] INSURANCE BILL - 02/08/2024 3:10 PM [employer] Performed at: [address] [id number] Technician Plant And Maintenance: Omar Conway PhD, Phone: [phone] Sanchez Becerril MD LAB - CHEMISTRY MARY ANNE WOLFE Performing Organization Address [facility] de Phone Number [facility] INSURANCE BILL [address] [place] [address] * METHYLMALONIC ACID BLOOD (02/07/2024 10:41 AM [employer]) Methylmalonic Acid 224 0 - 378 nmol/L [facility] Blood BLOOD SPECIMEN / Unknown 02/07/2024 10:41 AM [employer] 02/07/2024 Narrative [facility] INSURANCE BILL - 02/12/2024 7:07 AM [employer] Test(s) 381734-Ksmbmpijaqeam Acid, Serum was developed and its performance characteristics determined by [facility]. It has not been cleared or approved by the Food and Drug Administration. Performed at: [address] [id number] Technician Plant And Maintenance: Yash Farris MD, Phone: [phone] Authorizing Provider Result Harry Becerril MD LAB - CHEMISTRY MARY ANNE WOLFE Performing Organization Address [facility] Co de Phone Number [facility] INSURANCE BILL [address] [place] [address] * ERYTHROCYTE SEDIMENTATION RATE (02/07/2024 10:41 AM [employer]) Erythrocyte Sedimentation Rate Westergren 2 0 - 30 mm/hr [facility] INSURANCE BILL Blood BLOOD SPECIMEN / Unknown 02/07/2024 10:41 AM [employer] 02/07/2024 Narrative [facility] INSURANCE BILL - 02/08/2024 7:13 AM [employer] Performed at: - [facility] [address] [place], [place] [id number] Technician Plant And Maintenance: Omar Conawy PhD, Phone: [phone] Sanchez Becerril MD LAB - HEMATOLOGY ORD ERABLES Performing Organization Address [facility] Co de Phone Number [facility] INSURANCE BILL [address] [place] [address] * COPPER BLOOD (02/07/2024 10:40 AM [employer]) [facility] Signature Copper 94 69 - 132 ug/dL [facility] Comment:Detection Limit = 5 Blood BLOOD SPECIMEN / Unknown 02/07/2024 10:40 AM [employer] 02/07/2024 Narrative [facility] - 02/09/2024 5:09 PM [employer] Test(s) 382220-Zwmthk, Serum or Plasma was developed and its performance characteristics determined by [facility]. It has not been cleared or approved by the Food and Drug Administration. Performed at: [address] [id number] Technician Plant And Maintenance: Yash Farris MD, Phone: [phone] Sanchez Becerril MD LAB - CHEMISTRY MARY ANNE WOLFE Performing Organization Address [facility] Co de Phone Number [facility] INSURANCE BILL [address] [place] [address] * MRI BRAIN WO CONTRAST (01/16/2023 9:27 AM CDT) Anatomical Region Laterality Modality Head Magnetic Resonan ce 01/16/2023 9:31 AM CDT Impressions 01/16/2023 10:15 AM CDT IMPRESSION: Changes of sinusitis. Negative for infarct, mass or hemorrhage. Edited by Mikayla Merino on 01/16/2023 9:41 AM > Interpreting Provider: Caleb Hollins MD on 01/16/2023 10:15 AM Narrative 01/16/2023 10:15 AM CDT PROCEDURE: MRI BRAIN WO CONTRAST DATE/TIME OF EXAM: 01/16/2023 9:27 AM CLINICAL INFORMATION: None relevant/not provided if blank. Indication: R42: Dizziness and giddiness. FINDINGS: Images are provided using T1 and T2-weighted sequences. Diffusion-weighted images are also reviewed. The diffusion-weighted study shows no evidence for a recent infarct or ischemia. No mass or hemorrhage is evident. No extracerebral fluid collections are seen. Visible cerebral vessels have normal flow void. There is mucosal thickening in the left maxillary sinus consistent with sinusitis. Scattered mucosal thickening or fluid is seen in the ethmoid sinuses. Mastoids appear grossly clear. Procedure Note Caleb Hollins MD - 01/16/2023 PROCEDURE: MRI BRAIN WO CONTRAST DATE/TIME OF EXAM: 01/16/2023 9:27 AM CLINICAL INFORMATION: None relevant/not provided if blank. Indication: R42: Dizziness and giddiness. FINDINGS: Images are provided using T1 and T2-weighted sequences.Diffusion-weighted images are also reviewed. The diffusion-weighted study shows no evidence for a recent infarct or ischemia. No mass or hemorrhage is evident. No extracerebral fluid collections are seen. Visible cerebral vessels have normal flow void. There is mucosal thickening in the left maxillary sinus consistent with sinusitis. Scattered mucosal thickening or fluid is seen in the ethmoid sinuses. Mastoids appear grossly clear. IMPRESSION: Changes of sinusitis. Negative for infarct, mass or hemorrhage. Edited by Mikayla Merino on 01/16/2023 9:41 AM > Interpreting Provider: Caleb Hollins MD on 01/16/2023 10:15 AM Elmer Mandujano MD MR ORDERABLES * XR FINGERS RIGHT 2VW OR MORE (12/23/2022 10:16 AM CDT) Anatomical Region Laterality Modality Upper Extremity, Wrist / Hand Ra diographic Imaging 12/23/2022 11:3 4 AM CDT Narrative 12/23/2022 11:36 AM CDT Procedure: XR FINGERS RIGHT 2VW OR MORE Exam Date: 12/23/2022 10:16 AM Location: [facility] Indication: S69.91XA: Unspecified injury of right wrist, hand and finger(s), initial encounter Findings/impression: The study is performed with attention to the fifth finger. There is noted to be a metallic foreign body within the soft tissues about the distal phalanx of the fifth finger. It measures approximately 8 mm. No fracture is identified. There is no periosteal reaction or acute bony destruction. > Interpreting Provider: Rl Zapien MD on 12/23/2022 11:36 AM Procedure Note Rl Zapien MD - 12/23/2022 Procedure: XR FINGERS RIGHT 2VW OR MORE Exam Date: 12/23/2022 10:16 AM Location: [facility] Indication: S69.91XA: Unspecified injury of right wrist, hand and finger(s), initial encounter Findings/impression: The study is performed with attention to the fifth finger. There isnoted to be a metallic foreign body within the soft tissues about the distal phalanx of the fifth finger. It measures approximately 8 mm. No fractureis identified. There is no periosteal reaction or acute bony destruction. > Interpreting Provider: Rl Zapien MD on 12/23/2022 11:36 AM Elmer Mandujano MD DIAGNOSTIC IMAGI NG ORDERABLES * DERMATOPATHOLOGY (09/16/2021 12:00 AM CDT) Only the most recent of3 resultswithin the time period is included. Case Report Dermatopathology Report Case: [id number] Authorizing Provider: Brina Franco DO Collected: 09/16/2021 12:00 AM Ordering Location: [facility] D[facility] Lab Received: 09/16/2021 05:02 PM Pathologist: Toro Andrade MD Specimen: Skin, nasal dorsum 11:45 AM CDT DERMATOPATHOLOGY LABORATORY Final Diagnosis Specimen A. SKIN, nasal dorsum: ACTINIC KERATOSIS, PIGMENTED (L57.0) 11:45 AM CDT DERMATOPATHOLOGY LABORATORY Clinical History Pig AK R/O LM. 11:45 AM CDT DERMATOPATHOLOGY LABORATORY Gross Description Specimen A: Received is one formalin filled container labeled with the patient's name and designated nasal dorsum. The specimen consists of a shave biopsy measuring [id number]. Jar 0. 2 11:45 AM CDT DERMATOPATHOLOGY LABORATORY Microscopic Description Specimen A. SKIN, nasal dorsum: There is alternating orthokeratosis and parakeratosis. Along the undersurface of the epidermis, there are buds of atypical keratinocytes in a disorderly arrangement. There is prominent pigmentation in some of the keratinocytes. 2 11:45 AM CDT DERMATOPATHOLOGY LABORATORY Disclaimer An external and internal positive and negative controls are appropriate for the histochemical, immunohistochemical and immunofluorescence stain(s) in this case (if any), except where stated explicitly. The performance characteristics of the stain(s) cited in this report were developed and its performance characteristic determined by the Dermatopathology Laboratory at [facility], directed by Dr. Jessika Andrade. These tests need not be, and therefore are not, approved by the [place] Food and Drug Administration. The tests are used for clinical purposes. Billing Codes Specimen Charges Stain Charges 48602 1 2 11:45 AM CDT DERMATOPATHOLOGY LABORATORY Embedded Images 2 11:45 AM CDT DERMATOPATHOLOGY LABORATORY Pathology/Cytolog y TISSUE SPECIMEN FROM SKIN / Unknown 09/16/2021 09/16/2021 5:02 PM CDT Brina Franco DO LAB - PATHOLOGY/C YTOLOGY ORDERABLES DERMATOPATHOLOGY LABORATORY [facility] - Department of Dermatology [address], [address] [phone] * XR KNEE 4+ VW RIGHT (02/19/2019 11:14 AM [employer]) Anatomical Region Laterality Modality Lower Extremity Computed Radiogr aphy Narrative 02/19/2019 11:16 AM [employer] Stacie Fuentes 02/25/2019 2:52 PM SEE PROGRESS NOTES FOR RESULTS Damion Mata MD DIAGNOSTIC IMAGING O RDERABLES * DERMATOPATH TECHNICAL REPORT (05/10/2018 12:00 AM [employer]) Case Report Dermatopathology Report Case: [id number] Authorizing Provider: Brina Franco DO Collected: 05/10/2018 12:00 AM Pathologist: Maria Elena Chan MD Received: 05/11/2018 06:27 AM Specimen: Skin, right post shoulder 11:13 AM [facility] [email or web address]] DERMATOPATHOLOGY LABORATORY Clinical History Crusted pink papule. ISK R/O SCC non-healing. 11:13 AM [facility] [email or web address]] DERMATOPATHOLOGY LABORATORY Gross Description Specimen A: Received is one formalin filled container labeled with the patient's name and designated right post shoulder. The specimen consists of a shave measuring [id number]. Jar 0. [facility] Dermatopathology Laboratory performed the technical component only. 11:13 AM [facility] [[email or web address]] DERMATOPATHOLOGY LABORATORY Embedded Images 11:13 AM [facility] [[email or web address]] DERMATOPATHOLOGY LABORATORY DISCLAIMER An external and internal positive and negative controls are appropriate for the histochemical, immunohistochemical and immunofluorescence stain(s) in this case (if any), except where stated explicitly. The performance characteristics of the stain(s) cited in this report were developed and its performance characteristic determined by the Dermatopathology Laboratory at [facility], directed by Dr. Jessika Andrade. These tests need not be, and therefore are not, approved by the [place] Food and Drug Administration. The tests are used for clinical purposes. 11:13 AM [facility] [[email or web address]] DERMATOPATHOLOGY LABORATORY Pathology/Cytolog y TISSUE SPECIMEN FROM SKIN / Unknown 05/10/2018 05/11/2018 6:27 AM [employer] Brina Franco DO LAB - PATHOLOGY/C YTOLOGY ORDERABLES DERMATOPATHOLOGY LABORATORY [facility] - Department of Dermatology [address] [place] [address], [address] Floor Lab [address] [phone] * CARDIAC RHYTHM STRIP ORDER (08/03/2016 4:17 AM CDT) Only the most recent of2 resultswithin the time period is included. Narrative 08/03/2016 4:17 AM CDT Ordered by an unspecified provider. Scanned Document CARDIAC SERVICES ORD ERABLES * CARDIAC EKG ORDER (08/03/2016 3:51 AM CDT) Only the most recent of2 resultswithin the time period is included. Narrative 08/03/2016 3:51 AM CDT Ordered by an unspecified provider. Scanned Document CARDIAC SERVICES ORD ERABLES * CARDIAC PROCEDURE ORDER (08/03/2016 1:38 AM CDT) Narrative 08/03/2016 1:38 AM CDT Ordered by an unspecified provider. Scanned Document CARDIAC SERVICES ORD ERABLES * CARDIAC CATH PROCEDURE (08/01/2016 8:34 AM CDT) [facility]01[facility] 8:34 AM CDT Mario Camarena MD 08/01/2016 8:34 AM CARDIOLOGY PROCEDURE REPORT Date: 08/01/2016 Time: 8:32 AM Mr. Becerra is a 61 year old male with h/o anxiety who presented with chest pain. He had a positive stress ECG with chest pain on treadmill. He was scheduled for cardiac catheterization for further evaluation of the coronary anatomy. Procedures Performed: 1. Selective coronary angiography 2. Left heart catheterization 3. Left ventriculography Findings: 1- Hemodynamics: LV: 96/14 mmHg Ao: 96/12 mmHg 2- Left ventriculography: Systolic function: Normal systolic function. EF 60% Mitral regurgitation: None appreciated 3- Selective coronary angiography: Left coronary artery: Left main: Normal LAD: Normal, nontransapical vessel Circumflex: Normal, co-dominant vessel Right coronary artery: Normal, co-dominant vessel Complications: None Access: Right radial artery 6F Sedation: Moderate sedation was achieved during the cardiac catheterization using IV versed and fentanyl. The monitoring nurse was Cheri Juares RN. The patient was actively observed for moderate sedation by the attending yarn packer for 30 minutes. Recommendations: Medical management Ok to discharge from cardiac standpoint this afternoon. Mario Camarena MD 08/01/2016 8:32 AM Delbert Thayer MD CARDIAC SERVICE S ORDERABLES [facility] * CARDIAC CATH CONSULT (for Epic Reporting) (08/01/2016 8:34 AM CDT) Narrative [facility] - 08/01/2016 8:34 AM CDT Mario Camarena MD 08/01/2016 8:34 AM CARDIOLOGY PROCEDURE REPORT Date: 08/01/2016 Time: 8:32 AM Mr. Becerra is a 61 year old male with h/o anxiety who presented with chest pain. He had a positive stress ECG with chest pain on treadmill. He was scheduled for cardiac catheterization for further evaluation of the coronary anatomy. Procedures Performed: 1. Selective coronary angiography 2. Left heart catheterization 3. Left ventriculography Findings: 1- Hemodynamics: LV: 96/14 mmHg Ao: 96/12 mmHg 2- Left ventriculography: Systolic function: Normal systolic function. EF 60% Mitral regurgitation: None appreciated 3- Selective coronary angiography: Left coronary artery: Left main: Normal LAD: Normal, nontransapical vessel Circumflex: Normal, co-dominant vessel Right coronary artery: Normal, co-dominant vessel Complications: None Access: Right radial artery 6F Sedation: Moderate sedation was achieved during the cardiac catheterization using IV versed and fentanyl. The monitoring nurse was Cheri Juares RN. The patient was actively observed for moderate sedation by the attending yarn packer for 30 minutes. Recommendations: Medical management Ok to discharge from cardiac standpoint this afternoon. Mario Camarena MD 08/01/2016 8:32 AM Delbert Thayer MD ECHO ORDERABLES [facility] [address] [place], [place] [id number] * NM MYOCARD PERFUSION SPECT STRESS AND REST (07/30/2016 11:19 AM CDT) Anatomical Region Laterality Modality Chest Nuclear Digisoni cs 07/30/2016 9:44 AM CDT Narrative Procedure Note Toro Thayer MD - 07/30/2016 [place] [id number] Nuclear Myocardial Perfusion Report Pat.Name: JEFFY BECERRA Pat.ID: [id number] .Date: 07/30/2016 Exam Time: 9:44:00 AM Study Type:Nuclear Myocardial Perfusion Scan Height: 167.64cm Weight: 78.18kg BSA: 1.88 m2 Age: 1 1955,61Y Sex: MALE Pat. Stat.:Inpatient Room: 4216 Reason for Study:Chest pain Procedures:Exercise Perfusion Scan Race: Visit ID: [id number] Nurse: Urszula Guerrero RN, BSN Risk Factors:None Medications:Aspirin Supervised by:@CC: Jessika Thayer MD, FACC SUMMARY: FINDINGS: Myocardial perfusion imaging reveals uniform distribution of the radiopharmaceutical isotope during the stress and rest imaging sets. Left ventricular cavity size appears normal in both imaging sets. Gated images reveal normal LV systolic function with a calculated ejection fraction of 65%. SUMMARY: 1. Normal myocardial perfusion study without evidence of ischemia. However, ekg portion of test shows ischemia. 2. Gated images demonstrate normal LV systolic function. STRESS: Baseline Vital Signs: ECG: Normal ECG HR: 61 BP: 135/73 ME Int: 146 ms QRS Int: 80 ms QRS [place]: 418 deg Rhythm: Normal sinus rhythm Stress Test Results: Target HR: 133 Symptoms and Complications: Terminated: Chest pain Symptoms: Chest pain Stress ECG Interp: Ischemic S-T changes (>=1 mm) occurred with stress. Signed 07/30/2016 11:50 AM Jessika Thayer MD, FACC Delbert Thayer MD NM ORDERABLES * STRESS TEST NUCLEAR (07/30/2016 10:21 AM CDT) Stress Test Summary For full formatted report, please see the report link in the order. Acquisition Time: 2016-07-30 10:21:33 Total Exercise Time: 00:06:51 Test Indications: CHEST PAIN Medications: ASA Protocol: TERRY Max HR: 137 BPM 87% of Pred: 157 BPM Max BP: 170/073 mmHG Max Work Load: 8.3 METS Reason for Termination: chest pain Resting ECG: nsr Functional Capacity: HR Response to Exercise: appropriate BP Resoonse to Exercise: normal resting BP - appropriate response Chest Pain: Arrhythmias: ST Changes: Overall Impression: Positive stress test typical of ischemia Diagnosis: ischemic ekg on treadmill. nuclear imaging pending Confirmed by MD THAYER MADHU ([id number]) on 08/19/2016 8:16:43 AM Attending Physician: JUDIE THAYER MD Referred By: Elmer Mandujano Overread By: DELBERT THAYER MD [facility] 07/30/2016 10:2 1 AM CDT 08/19/2016 8:16 AM CDT Delbert Thayer MD CARDIAC SERVICE S ORDERABLES Performing Organization Address City/State/[facility] Co de Phone Number [facility] * TROPONIN I (07/29/2016 9:59 PM CDT) Only the most recent of3 resultswithin the time period is included. Troponin I <0.015 0.000 - 0.049 ng/mL 07/29/2016 10:22 PM CDT [facility] Blood BLOOD SPECIMEN / Unknown Lab Venipuncture / Unknown 07/29/2016 9:59 PM CDT 07/29/2016 10:01 PM CDT Narrative [facility] - 07/29/2016 10:22 PM CDT Note: Diagnosis of myocardial infarction requires symptoms of ischemia or EKG changes of ischemia and Troponin I >99th of normal (0.05 ng/mL). Troponin should be drawn on initial assessment and 3-6 hours later as clinically indicated. Any condition resulting in myocardial cell damage can increase cardiac troponin levels. In addition to myocardial infarction, these include but are not limited to congestive heart failure (CHF), arrhythmia, myocarditis, and non-cardiac related causes such as pulmonary embolism, renal failure and sepsis. Jona Lizama MD LAB - CHEMISTRY ORD ERABLES [facility] [address] [address] * (ABNORMAL) BLOOD GASES ART (07/29/2016 7:28 PM CDT) pH Arterial 7.42 7.35 - 7.45 pH 07/29/2016 7:32 PM CDT [facility] pCO2 Arterial 31(L) 35 - 45 mm hg 07/29/2016 7:32 PM CDT [facility] pO2 Arterial 86 80 - 100 mm hg 07/29/2016 7:32 PM CDT [facility] HCO3 Arterial 19(L) 22 - 26 mmol/L 07/29/2016 7:32 PM CDT [facility] BE Arterial -4.0(L) -2.0 - 2.0 mmol/L 07/29/2016 7:32 PM CDT [facility] O2 Saturation Arterial 96 90 - 100 % 07/29/2016 7:32 PM CDT [facility] Hemoglobin Arterial 13.1(L) 14.0 - 16.0 gm/dL 07/29/2016 7:32 PM CDT [facility] Carboxyhemoglobin Arterial 6.6(H) 0.0 - 2.5 % 07/29/2016 7:32 PM CDT [facility] Methemoglobin Arterial 0.2 0.0 - 2.0 % 07/29/2016 7:32 PM CDT [facility] Oxyhemoglobin Arterial 90 % 07/29/2016 7:32 PM CDT [facility] Mode Room Air 07/29/2016 7:32 PM CDT [facility] Sample Site R Radial 07/29/2016 7:32 PM CDT [facility] Sample Type Arterial 07/29/2016 7:32 PM CDT [facility]AP[facility] Coroner Forensic Technician ID HERMILO LOWE 07/29/2016 7:32 PM CDT [facility] Blood ARTERIAL BLOOD SPECIMEN / Unknown 07/29/2016 7:28 PM CDT 07/29/2016 7:28 PM CDT Jona Lizama MD LAB - BLOOD GASES O BECKI [facility]ER[facility] [address] [place], [place] [address] * XR CHEST PA AND LATERAL (07/29/2016 4:32 PM CDT) Anatomical Region Laterality Modality Chest Radiographic Arlene ging 07/29/2016 4:42 PM CDT Impressions 07/29/2016 4:43 PM CDT No acute cardiopulmonary process. Narrative 07/29/2016 4:43 PM CDT Chest Two Views History: Other chest pain Comparison: None Findings: The lungs are clear. No pneumothorax or pleural effusion. The cardiomediastinal silhouette is within normal limits. Procedure Note Farzaneh Gomes MD - 07/29/2016 Chest Two Views History: Other chest pain Comparison: None Findings: The lungs are clear. No pneumothorax or pleural effusion. The cardiomediastinal silhouette is within normal limits. IMPRESSION No acute cardiopulmonary process. Jona Lizama MD DIAGNOSTIC IMAGING ORDERABLES * (ABNORMAL) CBC W AUTO DIFFERENTIAL (07/29/2016 4:11 PM CDT) Only the most recent of4 resultswithin the time period is included. WBC 7.5 4.4 - 10.7 x10E9/L 07/29/2016 4:20 PM CDT [facility] WBC Corrected x10E9/L 07/29/2016 4:20 PM CDT [facility] RBC 4.54 3.80 - 5.40 x10E12/L 07/29/2016 4:20 PM CDT [facility] Hemoglobin 12.8 12.0 - 17.6 gm/dL 07/29/2016 4:20 PM CDT [facility] Hematocrit 37.9 35.2 - 51.7 % 07/29/2016 4:20 PM CDT [facility] MCV 83.5 80.7 - 98.3 fl 07/29/2016 4:20 PM CDT [facility] MCH 28.2 26.7 - 34.0 pg 07/29/2016 4:20 PM CDT [facility] MCHC 33.8 30.8 - 35.9 gm/dL 07/29/2016 4:20 PM CDT [facility] Platelet Count 290 153 - 416 x10E9/L 07/29/2016 4:20 PM [facility] RDW-CV 13.9 12.1 - 14.9 % 07/29/2016 4:20 PM [facility] MPV 9.3(L) 9.4 - 12.9 fl 07/29/2016 4:20 PM [facility] Neutrophils % 58.7 44.0 - 73.0 % 07/29/2016 4:20 PM [facility] Lymphocytes % 30.5 20.0 - 43.0 % 07/29/2016 4:20 PM [facility] Monocytes % 7.8 5.0 - 13.0 % 07/29/2016 4:20 PM [facility] Eosinophils % 1.9 0.0 - 6.0 % 07/29/2016 4:20 PM [facility] Basophils % 0.7 0.0 - 2.0 % 07/29/2016 4:20 PM [facility] Immature Granulocytes 0.4 0 - 1 % 07/29/2016 4:20 PM [facility] Neutrophil Absolute 4.42 2.01 - 7.14 x10E9/L 07/29/2016 4:20 PM [facility] Lymphocytes Absolute 2.30 1.07 - 3.94 x10E9/L 07/29/2016 4:20 PM [facility] Monocytes Absolute 0.59 0.26 - 1.07 x10E9/L 07/29/2016 4:20 PM [facility] Eosinophils Absolute 0.14 0 - 0.47 x10E9/L 07/29/2016 4:20 PM [facility] Basophils Absolute 0.05 0 - 0.08 x10E9/L 07/29/2016 4:20 PM [facility] Immature Granulocytes Absolute 0.03 0.00 - 0.06 x10E9/L 07/29/2016 4:20 PM [facility] nRBC Auto 0 /100 WBC 07/29/2016 4:20 PM [facility] Blood BLOOD SPECIMEN / Unknown Venipuncture / Unknown 07/29/2016 4:11 PM CDT 07/29/2016 4:17 PM CDT Jona Lizama MD LAB - HEMATOLOGY OR DERABLES [facility] [address] [address] * (ABNORMAL) COMPREHENSIVE METABOLIC PANEL (07/29/2016 4:10 PM T) Only the most recent of3 resultswithin the time period is included. Glucose 99 74 - 106 mg/dL 07/29/2016 4:41 PM [facility] Sodium 143 136 - 145 mmol/L 07/29/2016 4:41 PM [facility] Potassium 4.1 3.5 - 5.1 mmol/L 07/29/2016 4:41 PM [facility] Chloride 109(H) 98 - 107 mmol/L 07/29/2016 4:41 PM [facility] CO2 28 22 - 31 mmol/L 07/29/2016 4:41 PM [facility] Calcium 8.6 8.5 - 10.1 mg/dL 07/29/2016 4:41 PM [facility] Anion Gap 6(L) 8 - 16 mmol/L 07/29/2016 4:41 PM [facility] BUN 21 7 - 21 mg/dL 07/29/2016 4:41 PM [facility] Creatinine 1.08 0.50 - 1.30 mg/dL 07/29/2016 4:41 PM [facility] Alkaline Phosphatase 67 38 - 126 U/L 07/29/2016 4:41 PM [facility] ALT 23 13 - 61 U/L 07/29/2016 4:41 PM [facility] AST 14 5 - 40 U/L 07/29/2016 4:41 PM [facility] Protein Total 6.3(L) 6.4 - 8.2 gm/dL 07/29/2016 4:41 PM [facility] Albumin 3.9 3.4 - 5.0 gm/dL 07/29/2016 4:41 PM [facility] Bilirubin Total 0.4 0.2 - 1.0 mg/dL 07/29/2016 4:41 PM [facility] eGFR by MDRD >60 >60 mL/min/1.7 3m2 07/29/2016 4:41 PM [facility] eGFR by MDRD >60 >60 mL/min/1.7 3m2 07/29/2016 4:41 PM CDT [facility] Blood BLOOD SPECIMEN / Unknown 07/29/2016 4:10 PM CDT 07/29/2016 4:17 PM CDT Jona Lizama MD LAB - CHEMISTRY ORD ERABLES Performing Organization Address [facility] Co de Phone Number [facility] [address] [address] * EKG 12-LEAD (07/29/2016 3:58 PM CDT) Pathologist [facility] Ventricular Rate 64 BPM [facility] Atrial Rate 64 BPM [facility] P-R Interval 152 ms [facility] QRS Duration ms 74 ms [facility] Q-T Interval ms 374 ms [facility] QTC Calculation (Bezet) 385 ms [facility] Calculated P [place] -5 degrees [facility] Calculated R [place] 7 degrees [facility] Calculated T [place] 2 degrees [facility] Interpretation EKG Normal sinus rhythm Cannot rule out Inferior infarct , age undetermined Abnormal ECG No previous ECGs available Confirmed by MD KYM, [facility] ([id number]) on 07/30/2016 8:43:37 AM [facility] 07/29/2016 3:58 PM CDT 07/30/2016 8:43 AM CDT Jona Lizama MD ECG ORDERABLES Performing Organization Address [facility] de Phone Number [facility] * CT ABDOMEN AND PELVIS WITH IV CONTRAST (09/10/2014 2:24 PM CDT) Only the most recent of2 resultswithin the time period is included. Anatomical Region Laterality Modality Abdomen, Pelvis Computed Tomogra phy 09/10/2014 7:54 PM CDT Impressions 09/10/2014 7:56 PM CDT Interval resolution of previously seen sigmoid diverticulitis and pericolonic abscess. No acute bowel pathology. Narrative 09/10/2014 7:[address] OF THE ABDOMEN AND PELVIS WITH INTRAVENOUS CONTRAST Contrast: 100 cc of Omnipaque 350. HISTORY: Diverticulitis followup. COMPARISON: 08/24/2014. FINDINGS: LOWER THORAX: Normal. HEPATOBILIARY: There are no focal hepatic lesions. Gallbladder is absent. There is no biliary ductal dilatation. SPLEEN: No splenomegaly. PANCREAS: No focal masses or ductal dilatation. ADRENALS: No adrenal nodules. KIDNEYS/URETERS: No hydronephrosis, stones, or solid mass lesions. Numerous hypodensities bilaterally, likely renal cysts, are unchanged. PELVIC ORGANS/BLADDER: Bladder wall thickening has resolved. GI TRACT: There has been interval resolution of the previously seen area of inflammation adjacent to the sigmoid colon, consistent with resolved sigmoid diverticulitis. Pericolonic abscess has resolved. Diverticulosis remains. There is no bowel wall thickening or bowel obstruction. PERITONEUM / RETROPERITONEUM: No free air or fluid. LYMPH NODES: No lymphadenopathy. VESSELS: Unremarkable. BONES AND SOFT TISSUES: Unchanged. Procedure Note Arelis Salgado MD - 09/10/2014 CT OF THE ABDOMEN AND PELVIS WITH INTRAVENOUS CONTRAST Contrast: 100 cc of Omnipaque 350. HISTORY: Diverticulitis followup. COMPARISON: 08/24/2014. FINDINGS: LOWER THORAX: Normal. HEPATOBILIARY: There are no focal hepatic lesions. Gallbladder is absent. There is no biliary ductal dilatation. SPLEEN: No splenomegaly. PANCREAS: No focal masses or ductal dilatation. ADRENALS: No adrenal nodules. KIDNEYS/URETERS: No hydronephrosis, stones, or solid mass lesions. Numerous hypodensities bilaterally, likely renal cysts, are unchanged. PELVIC ORGANS/BLADDER: Bladder wall thickening has resolved. GI TRACT: There has been interval resolution of the previously seen area of inflammation adjacent to the sigmoid colon, consistent with resolved sigmoid diverticulitis. Pericolonic abscess has resolved. Diverticulosis remains. There is no bowel wall thickening or bowel obstruction. PERITONEUM / RETROPERITONEUM: No free air or fluid. LYMPH NODES: No lymphadenopathy. VESSELS: Unremarkable. BONES AND SOFT TISSUES: Unchanged. IMPRESSION Interval resolution of previously seen sigmoid diverticulitis and pericolonic abscess. No acute bowel pathology. David Gill MD CT ORDERABLES * CULTURE BLOOD (08/24/2014 8:36 PM CDT) Only the most recent of2 resultswithin the time period is included. Culture No Growth DAO 08/31/2014 5:38 AM CDT [facility] Blood PERIPHERAL BLOOD / Unknown Venipuncture / Unknown 08/24/2014 8:36 PM CDT 08/24/2014 10:38 PM CDT Umair Avina MD LAB - MICROBIOLOGY O RDERABLES [facility] [address] [place] [address] [phone] * LACTIC ACID BLOOD (08/24/2014 8:35 PM CDT) [facility] Lactic Acid 0.7 0.7 - 2.1 mmol/L 08/24/2014 10:52 PM CDT [facility] Blood BLOOD SPECIMEN / Unknown 08/24/2014 8:35 PM CDT 08/24/2014 10:37 PM CDT Umair Avina MD LAB - CHEMISTRY MARY ANNE WOLFE Performing Organization Address [facility] Co de Phone Number [facility] [address] [place], [place] [id number] * LIPASE BLOOD (08/24/2014 4:43 PM CDT) [facility] Lipase 120 73 - 393 U/L 08/24/2014 5:07 PM CDT [facility] Blood BLOOD SPECIMEN / Unknown Venipuncture / Unknown 08/24/2014 4:43 PM CDT 08/24/2014 4:53 PM CDT Umair Avina MD LAB - CHEMISTRY MARY ANNE WOLFE Performing Organization Address City/[facility] Co de Phone Number [facility] [address] [place] [phone] * (ABNORMAL) URINALYSIS ROUTINE W/REFLEX TO CULTURE (08/24/2014 4:42 PM CDT) [facility] Color UA Yellow Straw, Yellow, Dark Yellow 08/24/2014 4:57 PM CDT [facility] Clarity UA Clear 08/24/2014 4:57 PM CDT [facility] Specific [place] UA 1.024 1.005 - 1.030 08/24/2014 4:57 PM CDT [facility] pH UA 6.0 5.0 - 8.0 pH 08/24/2014 4:57 PM CDT [facility] Protein UA Negative Negative 08/24/2014 4:57 PM CDT [facility] Blood UA Trace(A) Negative 08/24/2014 4:57 PM CDT [facility] Leukocyte UA Negative Negative 08/24/2014 4:57 PM CDT [facility] Nitrite UA Negative Negative 08/24/2014 4:57 PM CDT [facility] Glucose UA Negative Negative 08/24/2014 4:57 PM CDT [facility] Ketone UA Negative Negative 08/24/2014 4:57 PM CDT [facility] Bilirubin UA Negative Negative 08/24/2014 4:57 PM CDT [facility] Urobilinogen UA 1.0 0.1 - 1.0 EU/dL 08/24/2014 4:57 PM CDT [facility] WBC UA Auto 0-2 0-2, 2-5 # /hpf 08/24/2014 4:57 PM CDT [facility] RBC UA Auto 2-5 0-2, 2-5 # /hpf 08/24/2014 4:57 PM CDT [facility] Epithelial Cell UA Auto 0-2 0-2, 2-5 # /hpf 08/24/2014 4:57 PM CDT [facility] Reflex Status Culture not indicated 08/24/2014 4:57 PM CDT [facility] Urine URINE SPECIMEN OBTAINED BY CLEAN CATCH PROCEDURE / Unknown Collection / Unknown 08/24/2014 4:42 PM CDT 08/24/2014 4:47 PM CDT Umair Avina MD LAB - URINALYSIS ORD ERABLES [facility] [address] [place] [address] * ECG STRESS TRACING (06/13/2014 10:39 AM CDT) [facility] Stress Test Summary Acquisition Time: 2014-06-13 10:39:13 Total Exercise Time: 00:10:21 Test Indications: Chest Discomfort Medications: Protocol: TERRY Max HR: 155 BPM 97% of Pred: 159 BPM Max BP: 156/090 mmHG Max Work Load: 12.3 METS Reason for Termination: Fatigue Resting ECG: Normal Functional Capacity: above average (>20%) HR Response to Exercise: appropriate BP Resoonse to Exercise: normal resting BP - appropriate response Chest Pain: none Arrhythmias: ventricular premature beats ST Changes: none Overall Impression: Normal stress test Diagnosis: Stress echo was performed. Patient exercised for 10 mins and 21 secs on a standard Terry protocol. Above average functional exercise capacity since average for age is 8 mins and 40 secs on. baseline ECG showed normal sinus rhythm. Initial HR was 61 bpm and peaked to 155 bpm which was 97% of the predicted max HR for age. BP increased appropriately with exercise. No exercise - indcued chest pain. Rare PVCs noted but asymptomatic. patient reported slight chest tightness with peak exercise but wiht no ECG changes. Sx resolved with rest. No ST-T wave changes diagnostic for ischemia. Echo images showed no stress-induced wall motion abnormalities per Dr Galarza. Overall, this is a normal stress study. Confirmed by Mariam Galarza ([id number]) on 06/26/2014 7:01:58 AM Attending Physicain: Aura Alberto Referred By: SULTANA Overread By: Mariam Galarza [facility] STR[facility] 06/13/2014 10:3 9 AM CDT 06/26/2014 7:01 AM CDT Elmer Mandujano MD CARDIAC SERVICES ORDERABLES [facility] STRESS * ECHOCARDIOGRAM STRESS Walking Stress ECHO (06/13/2014 10:23 AM CDT) 06/13/2014 10:2 3 AM CDT Narrative [facility] - 06/15/2014 4:37 PM CDT Exercise Stress Echocardiography Name: JEFFY BECERRA MR #: [id number] Study date: 13-Jun-2014 : 1955 Age: 59 years Gender: Male Height: 56 in Weight: 157 lb BSA: 1.6 m Reading Physician: Mariam Galarza DO Referring Physician: Elmer Mandujano MD Performing Nurse Practitioner: FRANKIE [place] Operations Specialist: Ryder Stallworth RDCS CLINICAL QUESTION: Chest pain Detection of coronary artery disease. HISTORY: The patient is a 59 year old male. Chest pain status: no chest pain. PHYSICAL EXAM: Baseline physical exam screening: normal, normal cardiac exam, and normal lung exam. REST ECG: Normal sinus rhythm. The ECG showed no atrial ectopy, no ventricular ectopy, normal conduction, and normal QRS morphology. PROCEDURE: The procedure was explained to the patient and informed consent was obtained. Treadmill exercise testing was performed, using the Terry protocol. Stress and rest echocardiographic evaluation with 2D imaging, spectral Doppler, and color Doppler was performed from multiple acoustic windows for evaluation of ventricular function. Systolic blood pressure was 120 mmHg, at the start of the study. Diastolic blood pressure was 80 mmHg, at the start of the study. The heart rate was 58 bpm, at the start of the study. TERRY PROTOCOL: HR bpm SBP mmHg DBP mmHg Symptoms Baseline 58 120 80 none Stage 1 118 150 80 -- Stage 2 130 150 80 -- Stage 3 146 156 90 -- Stage 4 153 -- -- -- Recovery 1 81 130 80 -- No medications or fluids given. STRESS SUMMARY: Duration of exercise was 10 min and 21 sec. The patient exercised to protocol stage 4. Maximal work rate was 12.3 METs. Functional capacity was above normal (greater than 20%) since average for age is 8 mins and 40 secs. Maximal heart rate during stress was 153 bpm ( 96 % of maximal predicted heart rate). Target heart rate was achieved. The heart rate response to stress was normal. Maximal systolic blood pressure during stress was 158 mmHg. There was normal resting blood pressure with an appropriate response to stress. The rate-pressure product for the peak heart rate and blood pressure [place] [address]. The patient experienced chest pain during stress; pain resolved spontaneously. The stress test was terminated due to fatigue. The stress ECG was negative for ischemia. Arrhythmia during stress: isolated premature ventricular beats. STRESS 2D ECHOCARDIOGRAPHIC RESULTS: BASELINE: There were no regional wall motion abnormalities. Left ventricular size was normal. Overall left ventricular systolic function was normal. Estimated left ventricular ejection fraction was 60 % . PEAK STRESS: There were no regional wall motion abnormalities. There was an appropriate reduction in left ventricular size. There was an appropriate augmentation in LV function. ECHO IMPRESSIONS: Echo images showed no stress-induced wall motion abnormalities per Dr Galarza. SUMMARY: - Stress results: Duration of exercise was 10 min and 21 sec. Maximal work rate was 12.3 METs. Target heart rate was achieved. The patient experienced chest pain during stress; pain resolved spontaneously. - ECG conclusions: The stress ECG was negative for ischemia. - Impressions and recommendations: Negative study for ischemia after maximal exercise. - Baseline: There were no regional wall motion abnormalities. Estimated left ventricular ejection fraction was 60 % . - Peak stress: There were no regional wall motion abnormalities. IMPRESSIONS: Negative study for ischemia after maximal exercise. SYSTEM MEASUREMENT TABLES PW LATERAL E': 0.1 m/s Prepared and signed by Mariam Galarza DO Signed 15-Jun-2014 16:37:20 Procedure Note Mariam Galarza DO - 06/15/2014 Exercise Stress Echocardiography Name: JEFFY BECERRA MR #: [id number] Study date: 13-Jun-2014 : 1955 Age: 59 years Gender: Male Height: 56 in Weight: 157 lb BSA: 1.6 m Reading Physician: Mariam Galarza DO Referring Physician: Elmer Mandujano MD Performing Nurse Practitioner: YENI [facility] Branch Operations Specialist: Ryder Stallworth RDCS CLINICAL QUESTION: Chest pain Detection of coronary artery disease. HISTORY: The patient is a 59 year old male. Chest pain status: no chest pain. PHYSICAL EXAM: Baseline physical exam screening: normal, normal cardiac exam, and normal lung exam. REST ECG: Normal sinus rhythm. The ECG showed no atrial ectopy, no ventricular ectopy, normal conduction, and normal QRS morphology. PROCEDURE: The procedure was explained to the patient and informed consent was obtained. Treadmill exercise testing was performed, using the Terry protocol. Stress and rest echocardiographic evaluation with 2D imaging, spectral Doppler, and color Doppler was performed from multiple acoustic windows for evaluation of ventricular function. Systolic blood pressure was 120 mmHg, at the start of the study. Diastolic blood pressure was 80 mmHg, at the start of the study. The heart rate was 58 bpm, at the start of the study. TERRY PROTOCOL: HR bpm SBP mmHg DBP mmHg Symptoms Baseline 58 120 80 none Stage 1 118 150 80 -- Stage 2 130 150 80 -- Stage 3 146 156 90 -- Stage 4 153 -- -- -- Recovery 1 81 130 80 -- No medications or fluids given. STRESS SUMMARY: Duration of exercise was 10 min and 21 sec. The patient exercised to protocol stage 4. Maximal work rate was 12.3 METs. Functional capacity was above normal (greater than 20%) since average for age is 8 mins and 40 secs. Maximal heart rate during stress was 153 bpm ( 96 % of maximal predicted heart rate). Target heart rate was achieved. The heart rate response to stress was normal. Maximal systolic blood pressure during stress was 158 mmHg. There was normal resting blood pressure with an appropriate response to stress. The rate-pressure product for the peak heart rate and blood pressure was [address]. The patient experienced chest pain during stress; pain resolved spontaneously. The stress test was terminated due to fatigue. The stress ECG was negative for ischemia. Arrhythmia during stress: isolated premature ventricular beats. STRESS 2D ECHOCARDIOGRAPHIC RESULTS: BASELINE: There were no regional wall motion abnormalities. Left ventricular size was normal. Overall left ventricular systolic function was normal. Estimated left ventricular ejection fraction was 60 % . PEAK STRESS: There were no regional wall motion abnormalities. There was an appropriate reduction in left ventricular size. There was an appropriate augmentation in LV function. ECHO IMPRESSIONS: Echo images showed no stress-induced wall motion abnormalities per Dr Galarza. SUMMARY: - Stress results: Duration of exercise was 10 min and 21 sec. Maximal work rate was 12.3 METs. Target heart rate was achieved. The patient experienced chest pain during stress; pain resolved spontaneously. - ECG conclusions: The stress ECG was negative for ischemia. - Impressions and recommendations: Negative study for ischemia after maximal exercise. - Baseline: There were no regional wall motion abnormalities. Estimated left ventricular ejection fraction was 60 % . - Peak stress: There were no regional wall motion abnormalities. IMPRESSIONS: Negative study for ischemia after maximal exercise. SYSTEM MEASUREMENT TABLES PW LATERAL E': 0.1 m/s Prepared and signed by Mariam Galarza DO Signed 15-Jun-2014 16:37:20 Elmer Mandujano MD ECHO ORDERABLES Performing Organization Address City/State/[facility] Co de Phone Number [facility] [address] [place] [address] * GROSS + MICRO EXAM (STL) (10/16/2012 10:15 AM CDT) Case Report Surgical Pathology Report Case: [id number] -------- Authorizing Provider: Shiv Lowe MD Ordering Provider: Shiv Lowe MD Ordering Location: [facility] Collected: 10/16/2012 10:15 AM Pathologist: Michelle Landeros MD Received: 10/16/2012 12:05 PM Signed Out: 10/17/2012 12:21 PM (Final) Specimen: Hernia Sac, right side 10/17/2012 12:22 PM CDT [facility] Final Diagnosis 1. Right inguinal region, hernia sac, excision: -- Hernia sac. /[facility] 10/17/2012 12:22 PM CDT [facility] Gross Description The specimen is labeled, Becerra, Jeffy, and hernia sac . The specimen consists of 1.5 x 0.6 cm rubbery strip of red-cao tissue; submitted in a single cassette. LL/na 10/17/2012 12:22 PM CDT [facility] Microscopic Description Section shows hernia sac and no evidence of neoplastic or inflammatory process. /[facility] 10/17/2012 12:22 PM CDT [facility] Synoptic Report 10/17/2012 12:22 PM CDT [facility] Pathology/Cytolo gy HERNIA SAC / Unknown 10/16/2012 10:15 AM CDT 10/16/2012 12:05 PM CDT Shiv Lowe MD LAB - PATHOLOGY/CYTO LOGY ORDERABLES [facility] [address] [place] [address] Care Teams Applications Chemist Relationship Specialty Start Date End Date Fish Aguilera MD [place] [id number] PCP - General Internal Medicine 03/29/24 Nataliia Thomas, RN [employer] Tractor Operator 08/25/14
--- OUTSIDE RECORDS SUMMARY | 2024-05-15 15:03 | XMS_ITS | Referral Summary ---
Author Organization [facility] Address [address] [place] [address] Care Team Providers Care Veneer Sawyer Name Role Phone Nataliia Thomas RN Unavailable Fish Aguilera MD Primary Care Provider [phone] Source Comments [facility],non-owned Affiliates and Associated Physician Practices is amultiple site organization consisting of ambulatory clinics and hospital sitesin [place], [place], [place] and [place]. This disclosure is being madepursuant to the Care Everywhere program and may not contain all information available regarding this patient. Last updated 17.[facility] Encounters Date Type Department Care Team Description 04/01/2024 3:00 PM MEDICAL DEVICE SALES Office Visit [facility] [address] [facility] [address] [place] [id number] Sanchez Becerril MD Vestibular migraine (Primary Dx); Ocular migraine; Mild cerebral atrophy (HCC); RBD (REM behavioral disorder); Idiopathic peripheral neuropathy 02/13/2024 10:00 AM MEDICAL DEVICE SALES - 02/13/2024 11:59 PM MEDICAL DEVICE SALES Hospital Encounter [facility] [address], [address] [place] [address] Sanchez Becerril MD Discharge Disposition: Home or Self Care from Last 3 Months Allergies No known active allergies Medications * [...] Comments Blood Pressure 120/74 04/01/2024 3:02 PM MEDICAL DEVICE SALES Pulse 73 04/01/2024 3:02 PM MEDICAL DEVICE SALES Temperature 36.6 C (97.9 F) 08/01/2016 12:01 PM CDT Respiratory Rate 16 08/01/2016 12:01 PM CDT Oxygen Saturation 99% 08/01/2016 12:01 PM CDT Inhaled Oxygen Concentration - - Weight 78.9 kg (174 lb) 04/01/2024 3:02 PM MEDICAL DEVICE SALES Height 167.6 cm (5' 6 ) 04/01/2024 3:02 PM MEDICAL DEVICE SALES Body Mass Index 28.08 04/01/2024 3:02 PM MEDICAL DEVICE SALES Functional Status Functional Status Response Date of [...] person have difficulty concentrating/remembering/making decisions? No 08/01/2016 Plan of Treatment Upcoming Encounters Date Type Department Care Team (Late st Contact Info) Description 10/08/2024 11:00 AM CDT Office Visit [address] [address] Sanchez Becerril MD [address] [place] [phone] Medical Devices Implanted Type Area Corking Machine Operator Device Identifier Shelf Expiration Date Model / Serial / Lot Mesh Implanted:Qty: 1 on 10/16/2012 by Shiv Lowe MD at [facility] [place] [employer] 04/19/2017 [facility] / / [id number] Description:extended Procedures Procedure Name Priority Date/Time Associated Diagnosis Comments EMG WITH NERVE CONDUCTION STUDY Routine 02/13/2024 1:30 PM MEDICAL DEVICE SALES Balance problem COMPREHENSIVE METABOLIC PANEL STAT 07/29/2016 4:10 PM CDT from Last 3 Months or Most Recently Relevant to Health Maintenance Results * EMG WITH NERVE CONDUCTION STUDY (02/13/2024 1:30 PM MEDICAL DEVICE SALES) Narrative Sanchez Becerril MD - 02/13/2024 1:30 PM MEDICAL DEVICE SALES Sanchez Becerril MD 02/13/2024 1:33 PM [facility] [address] [place] [address], [address] [phone] Patient: Jono Nova V #: Physician: Sanchez Becerril MD Sex: Male ID#: [id number] Ref Phys: Sanchez Becerril MD. : 1955 Date: 02/13/2024 Timber Incisor Operator: Odilia Fraser Patient Complaints: The patient is [...] Please correlate clinically Sanchez Becerril MD Diplomate, [place] [employer] Board Certified [...] COMPREHENSIVE METABOLIC PANEL (07/29/2016 4:10 PM CDT) [facility] Glucose 99 74 - 106 mg/dL 07/29/2016 4:41 PM [facility] Sodium 143 136 - 145 mmol/L 07/29/2016 4:41 PM [facility] Potassium 4.1 3.5 - 5.1 mmol/L 07/29/2016 4:41 PM [facility] Chloride 109(H) 98 - 107 mmol/L 07/29/2016 4:41 PM [facility] CO2 28 22 - 31 mmol/L 07/29/2016 4:41 PM [facility] Calcium 8.6 8.5 - 10.1 mg/dL 07/29/2016 4:41 PM [facility] Anion Gap 6(L) 8 - 16 mmol/L 07/29/2016 4:41 PM [facility] BUN 21 7 - 21 mg/dL 07/29/2016 4:41 PM [facility] Creatinine 1.08 0.50 - 1.30 mg/dL 07/29/2016 4:41 PM [facility] Alkaline Phosphatase 67 38 - 126 U/L 07/29/2016 4:41 PM [facility] ALT 23 13 - 61 U/L 07/29/2016 4:41 PM [facility] AST 14 5 - 40 U/L 07/29/2016 4:41 PM [facility] Protein Total 6.3(L) 6.4 - 8.2 gm/dL 07/29/2016 4:41 PM [facility] Albumin 3.9 3.4 - 5.0 gm/dL 07/29/2016 4:41 PM CDT [facility] Bilirubin Total 0.4 0.2 - 1.0 mg/dL 07/29/2016 4:41 PM CDT [facility] eGFR by MDRD >60 >60 mL/min/1.7 3m2 07/29/2016 4:41 PM CDT [facility] eGFR by MDRD >60 >60 mL/min/1.7 3m2 07/29/2016 4:41 PM CDT [facility] Blood BLOOD SPECIMEN / Unknown 07/29/2016 4:10 PM CDT 07/29/2016 4:17 PM CDT Jona Lizama MD LAB - CHEMISTRY ORD ERABLES [facility] [address] [id number] from Last 3 Months or Most Recently [...] 9:35 PM 08/27/2014 9:57 AM Care Teams Veneer Sawyer Relationship Specialty Start Date [place] [address] PCP - General Internal Medicine 03/29/24 Nataliia Thomas, RN Freight Brakeman 08/25/14
--- OUTSIDE RECORDS SUMMARY | 2024-05-15 15:03 | XMS_ITS | Continuity of Care Document ---
Author Organization [employer] Address [address] [place] [address] Phone Care Team Providers Care Maintenance Clerk Name Role Phone Sreekanth Spivey MD Unavailable Unavailable Allergies, Adverse Reactions, Alerts Substance Reaction Status Criticality No Known Allergies Active No Inform ation Medications Medication Instructions Dosage Effective Dates (start - stop) Status Comments venlafaxine 75 mg tablet take 1 tablet by oral route 2 times every day with food 75 MG - Active Tamsulosin HCl 0.4 MG Oral Capsule TAKE 1 CAPSULE BY MOUTH ONCE DAILY HALF AN HOUR FOLLOWING THE SAME MEAL EACH DAY - Active sildenafil (pulmonary hypertension) 20 mg tablet TAKE 2 TO 5 TABLETS BY MOUTH ONE HOUR BEFORE SEXUAL ACTIVITY. DO NOT EXCEED MORE THAN 5 TABLETS IN 24 HOURS. - Active Procedures Procedure Date OFFICE [id number]-[id number]-[id number] Visit Complexity Inherent To E/M 2024 GARAMYCIN, GENTAMICIN INECTION, UP TO 80 MG THERAPEUTIC, PROPHYLACTIC OR DIAG INJ IN TRA-MUSCLR/SQ ROCEPHIN INJ UP TO 250MG THERAPEUTIC, PROPHYLACTIC OR DIAG INJ IN TRA-MUSCLR/SQ US, TRANSRECTAL ULTRASONIC GUIDANCE NEEDLE BIOPSY, IMG A ND INTRP BIOPSY OF PROSTATE TISSUE EXAM BY PATHOLOGIST IMMUNOHISTOCHEMISTRY, PER CECIL ROBERTS, INITIAL SINGLE ANTIBODY, STAIN PROCEDURE IMMUNOHISTOCHEMISTRY. Each Addtl Single Antibody OFFICE VZTOE-QYU-WQIZ-MED Visit Complexity Inherent To E/M 2024 Pt inelig neg scrn depres FALL RISK ASSESSMENT DOC'D PRES/ABSN URINE INCON ASSESS PSA, TOTAL ROUTINE VENIPUNCTURE OFFICE [id number]-[id number]-RFLETESN BODY MASS INDEX DOCD SYST BP LT 130 MM HG DIAST BP < 80 MM HG OFFICE UYWFA-CEY-WCNKRMAX BODY MASS INDEX DOCD SYST BP LT 130 MM HG DIAST BP < 80 MM HG FALL RISK ASSESSMENT DOC'D PRES/ABSN URINE INCON ASSESS Pt inelig neg scrn depres OFFICE [id number]-UIO-CSBMKNMW BODY MASS INDEX DOCD SYST BP LT 130 MM HG DIAST BP < 80 MM HG PSA, TOTAL, SCREENING MEDICARE ONLY ROUTINE VENIPUNCTURE FALL RISK ASSESSMENT DOC'D PRES/ABSN URINE INCON ASSESS Pt inelig neg scrn depres CBC, INC PLATELETS AND DIFFERENTIAL COMPREHEN METABOLIC PANEL CMP IRON (FE), TOTAL TIBC, & % SATURATION LIPID PANEL THYROID STIMULATION HORMONE(TSH) 2022 ROUTINE VENIPUNCTURE OFFICE JOAST-SOZ-VIDMQJNU BODY MASS INDEX DOCD SYST BP LT 130 MM HG DIAST BP < 80 MM HG FALL RISK ASSESSMENT DOC'D PRES/ABSN URINE INCON ASSESS OFFICE GUTAH-EQG-VRQLODVA BODY MASS INDEX DOCD SYST BP LT 130 MM HG DIAST BP < 80 MM HG CBC, INC PLATELETS AND DIFFERENTIAL CYCLIC CITRULLINE PEPTIDE (CCP) FERRITIN LEVEL IRON (FE), TOTAL TIBC, & % SATURATION RHEUMATOID FACTOR: QN RBC SED RATE, AUTOMATED THYROID STIMULATION HORMONE(TSH) 2021 ROUTINE VENIPUNCTURE Admin influenza virus vac Flu Vac, quad (RIV4), Preservative And A ntibiotic Free IM Pt inelig neg scrn depres FALL RISK ASSESSMENT DOC'D PRES/ABSN URINE INCON ASSESS CBC, INC PLATELETS AND DIFFERENTIAL COMPREHEN METABOLIC PANEL [facility] 1 LIPID PANEL PSA, TOTAL, SCREENING MEDICARE ONLY ROUTINE VENIPUNCTURE PPPS, subseq visit BODY MASS INDEX DOCD SYST BP LT 130 MM HG DIAST BP < 80 MM HG OFFICE MIZEL-AJF-CXHZVOTY BODY MASS INDEX DOCD SYST BP LT 130 MM HG DIAST BP < 80 MM HG Pt inelig neg scrn depres Admin influenza virus vac Flu Vac, quad (RIV4), Preservative And A ntibiotic Free IM FALL RISK ASSESSMENT DOC'D PRES/ABSN URINE INCON ASSESS PPPS, subseq visit CBC, INC PLATELETS AND DIFFERENTIAL COMPREHEN METABOLIC PANEL [facility] 0 LIPID PANEL PSA, TOTAL ROUTINE VENIPUNCTURE PNEUMOVAX ADM MEDICARE PNEUMOVAX IMMUNIZATION OFFICE [id number]-NSC-[id number] SYST BP LT 130 MM HG DIAST BP < 80 MM HG Pt inelig neg scrn depres INIT PREVENT PHYS EXAM; LIMITED TO NEW B ENEFICIARY SYST BP LT 130 MM HG DIAST BP < 80 MM HG BASIC METABOLIC PANEL(BMP) HEMOGLOBIN A1C HGA1C, GLYCO LIPID PANEL PSA, TOTAL THYROID STIMULATION HORMONE(TSH) 2018 URINALYSIS, REFLEX (UA) VITAMIN B12 (SERUM) ROUTINE VENIPUNCTURE Advance Directives Directive Yes / No Effective Date File Name Life Support Not Answered N/A N/A Intubation Not Answered N/A N/A Antibiotics Not Answered N/A N/A IV Fluid Support Not Answered N/A N/A Tube Feed Not Answered N/A N/A Other Directive N/A N/A WARNING:The information contained in this section is historical and is provided for information only and does not constitute a legal document or any assurance that the information is still accurate. Please verify the information with the benson of the legal document before using it for clinical purposes. Encounters Encounter Description Practice Location Reason(s) For Visit Diagnoses Date Provider Providers Copied on Encounter [employer] [facility], [address], [place], [place], [address] , tel: [phone] [facility] No Information 5 Patric Stack. [address], [facility] [address], [place], [address], . tel:[phone] OFFICE [id number]-KIM-YI TAILED [facility], [address], [place], [place], [address] , [facility]: [phone] [facility] ne[facility] of prostate 5 Patric Stack. [address], [address], [place], [address], . tel:[phone] Referring Provider: Fish bravo, [address], [place], [address] . tel:[phone] [facility], [address], [place], [place], [address] , [place] tel: [phone] [facility] Elevated PSA 5 Patric Stack. [address], [address], [place], [address], [place]. tel:[phone] Referring Provider: Fish bravo, [address], [place], [address] . tel:[phone] [facility], [address], [place], [address] , [place] tel: [phone] [facility] No Information 5 Jason Barron. [address] [place] [address], [facility], . tel:[phone] Referring Provider: Anderson Gomez, [address] [place] [address], [facility]. tel:[phone] [facility], [address], [place], [place], [address] , [place] tel: [phone] [facility] No Information 5 Willy De La Cruz. [address], [facility] [address], [place], [place], [address], [place]. tel:[phone] [facility], [address], [place], [address] , [place] tel: [phone] [facility] No Information 5 Willy De La Cruz. [address], [address], [place], [place], [address], [place]. tel:[phone] OFFICE GSDIP-AKW-WL MP-MED [employer] [facility], [address], [place], [place], [address] , [place] tel: [phone] [facility] Elevated PSABenign prostatic hyperplasia, unspecified whether lower urinary tract symptoms present 5 Patric Stack. [address], [address], [place], [address], [place]. tel:[phone] Referring Provider: Fish bravo, [address], [place], [address] . tel:[phone] [employer] [facility], [address], [place], [place], [address] , [place] tel:[phone] [facility] No Information 4 Willy De La Cruz. [address], [address], [place], [place], [address], [place]. tel:[phone] OFFICE [id number] [facility], [address], [place], [place], [address] , [place] tel: [phone] [facility] acute visit (chief complaint) Body mass index [BMI] 27.0-27.9, adultIdiopathic peripheral neuropathyDizzine ssEncounter for screening for cancer of colonUrinary frequencyEncounte r for screening prostate specific antigen (PSA) measurementElevat ed PSA 4 Willy De La Cruz. [address], [address], [place], [place], [address], [place]. tel:[phone] Referring Provider: Fish bravo, [address], [place], [address] . tel:[phone] [facility], [address], [place], [place], [address] , [place] [phone] [facility] Dizziness 4 Delbert Payne. [address], [address], [place], [place], [address], [place]. tel:[phone] [facility], [address], [place], [place], [address] , [place] [phone] [facility] Other fatigue 4 Delbert Payne. [address], [address], [place], [place], [address], [place]. tel:[phone] [facility], [address], [place], [place], [address] , tel: [phone] [facility] Dizziness 4 Delbert Payne. [address] [place] [address], [address] [address], [place], [place], [address], [place]. [phone] OFFICE [id number]-TAE-VU PANDED [facility], [address], [place], [place], [address] , tel: [phone] [facility] acute visit (chief complaint) Body mass index [BMI] 26.0-26.9, adultLeft eyelid laceration, initial encounter 3 Jina Jackson. [address] [place] [address], [address] [facility], [place], [place], [address], [place]. tel:[phone] Referring Provider: Elmer Mandujano , [address] [place] [address], [place], [address] . tel:[phone] [facility], [address], [place], [place], [address] , [place] tel: [phone] [facility] Dizziness 3 Delbert Payne. [address] [place] [address], [address] [address], [place], [place], [address], [place]. [phone] OFFICE TKKEX-DND-HX TAILED [facility], [address], [place], [place], [address] , tel: [phone] [facility] spells (chief complaint)f adam infection (chief complaint) Body mass index [BMI] 26.0-26.9, adultDizzinessInj ury of finger of right hand, initial encounterEncounte r for screening for malignant neoplasm of prostateMetal foreign body in finger 3 Delbert Payne. [address] [place] [address], [address] [address], [place], [place], [address], [place]. tel:[phone] Referring Provider: Elmer Mandujano , [address] [place] [address], [place], [address] . tel:[phone] OFFICE YOKNB-AWC-ON TAILED [facility], [address], [place], [place], [address] , tel:[phone] [facility] Patient encounter (chief complaint) DizzinessBody mass index [BMI] 26.0-26.9, adultEncounter for screening for malignant neoplasm of prostate 3 Delbert Payne. [address] [place] [address], [address], [place], [place], [address], . tel:[phone] Referring Provider: Elmer Mandujano , [address] [place] [address] Suite [facility], [place], [address] . tel:[phone] OFFICE [id number]-[id number]-CW PANDKURT [employer] [facility], [address], [place], [place], [address] , tel:[phone] [facility] Patient encounter (chief complaint) Mild anemiaHand arthritisBody mass index [BMI] 25.0-25.9, adult 2 Delbert Payne. [address] [place] [address], [address] [facility], [place], [place], [address], [place]. tel:[phone] Referring Provider: Elmer Mandujano , [address] [place] [address], [place], [address] . tel:[phone] [facility], [address], [place], [place], [address] , tel:[phone] [facility] Cough in adult 2 Delbert Payne. [facility] [address], [address], [place], [place], [address], [place]. tel:[phone] [facility], [address], [place], [address] , tel:[phone] [facility] Medicare preventive (chief complaint) Encounter for general adult medical examination without abnormal findingsBody mass index [BMI] 24.0-24.9, adultEncounter for immunizationEncou nter for lipid screening for cardiovascular diseaseOsteoarthr itis of knee, unspecifiedEncoun ter for screening for malignant neoplasm of prostate 1 Delbert Payne. [address] [place] [address], [address] [address], [place], [place], [address], . tel:[phone] Referring Provider: Elmer Mandujano , [address] [place] [address], [place], [address] . tel:[phone] OFFICE LIOOE-BIM-OC PANDED [facility], [address], [place], [place], [address] , tel:[phone] [facility] follow up (chief complaint)m usculoskele gurmeet pain (chief complaint)C hronic Conditions (chief complaint) Body mass index (BMI) 25.0-25.9, adultLeft knee pain, unspecified chronicityHeredit lauro and idiopathic neuropathy, unspecifiedOsteoa rthritis of knee, unspecified 1 Delbert Payne. [address] [place] [address], [place], [place], [address], . tel:[phone] Referring Provider: Elmer Mandujano , [address] [place] [address], [place], [address] . tel:[phone] [facility], [address], [place], [place], [address] , tel:[phone] [facility] Left knee pain, unspecified chronicity 1 Delbert Payne. [address] [place] [address], [place], [place], [address], . tel:[phone] [facility], [address], [place], [place], [address] , tel:[phone] [facility] Medicare preventive (chief complaint) Encounter for general adult medical examination without abnormal findingsBenign prostatic hyperplasia with weak urinary streamDiverticuli tisEncounter for immunizationEncou nter for lipid screening for cardiovascular disease 0 Delbert Payne. [address] [place] [address], [place], [place], [address], . tel:[phone] Referring Provider: Elmer Mandujano , [address] [place] [address] [address], [place], [address] . tel:[phone] [facility], [address], [place], [place], [address] , tel: [phone] [facility] Foreign body in ear, unspecified laterality, initial encounter 0 Delbert Payne. [address] [place] [address], [facility] [address], [place], [place], [address], [place]. tel:[phone] OFFICE [id number] [facility], [address], [place], [place], [address] , [place] tel: [phone] [facility] acute visit (chief complaint)robert liriano gurmeet pain (chief complaint) Injury of left foot, initial encounter 9 Delbert Payne. [address] [place] [address], [address] [address], [place], [place], [address], [place]. tel:[phone] Referring Provider: Elmer Mandujano , [address] [place] [address], [place], [address] . tel:[phone] [employer] [facility], [address], [place], [place], [address] , tel: [phone] [facility] Medicare preventive (chief complaint) Encounter for general adult medical examination without abnormal findingsAllergic rhinitis, unspecified seasonality, unspecified triggerBenign prostatic hyperplasia with weak urinary streamNeuropathyE rectile dysfunction, unspecified erectile dysfunction typeEncounter for lipid screening for cardiovascular diseaseImmunizati on counseling 9 Delbert Payne. [address] [place] [address], [address] [address], [place], [place], [address], [place]. tel:[phone] Referring Provider: Elmer Mandujano , [address] [place] [address], [place], [address] . tel:[phone] [facility], [address], [place], [place], [address] , tel: [phone] [facility] Diverticulitis large intestineLeft shoulder pain 5 Delbert Payne. [address] [place] [address], [place], [place], [address], [place]. tel:[phone] Referring Provider: Elmer Mandujano , [address] [place] [address], [place], [address] . tel:[phone] [facility], [address], [place], [place], [address] , tel: [phone] [facility] ROUTINE MEDICAL EXAMChest discomfortOther and unspecified hyperlipidemiaNEE D FOR PROPHYLACTIC VACCINATION AND INOCULATION, OTHER VIRAL DISEASES 5 Delbert Payne. [address] [place] [address], [place], [place], [address], [place]. tel:[phone] Referring Provider: Elmer Mandujano , [address] [place] [address], [place], [address] . tel:[phone] [facility], [address], [place], [place], [address] , [place] tel: [phone] [facility] Other and unspecified hyperlipidemia 5 Delbert Payne. [address] [place] [address], [place], [place], [address], [place]. tel:[phone] [facility], [address], [place], [place], [address] , tel: [phone] [facility] Other and unspecified hyperlipidemia 4 Delbert Payne. [address] [place] [address], [address] [address], [place], [place], [address], [place]. tel:[phone] [facility], [address], [place], [place], [address] , [place] tel: [phone] [facility] Backache, unspecifiedOther and unspecified hyperlipidemiaMaj or depressive affective disorder, recurrent episode, moderate degreeALLERGIC RHINITIS NOSInguinal hernia, right 0 3 Estevan Hartley. [address] [place] [address], [place], [address], [place]. tel:[phone] Referring Provider: Elmer Mandujano , [address] [place] [address], [place], [address] . tel:[phone] [facility], [address], [place], [place], [address] , [place] tel:[phone] [facility] Abdominal pain, acute, generalizedLeft wrist painGroin swelling 2 Nino Crisostomo. [address] [place] [address], [place], [place], [address], [place]. tel:[phone] Referring Provider: Elmer Mandujano , [address] [place] [address], [place], [address] . tel:[phone] [facility], [address], [place], [place], [address] , [place] tel: [phone] [facility] AnxietyPalpitatio nsOther and unspecified hyperlipidemia 2 Damion Hilliard. [address] [place] [address], [place], [address]. tel:[phone] Referring Provider: Elmer Mandujano , [address] [place] [address], [place], [address] . tel:[phone] [facility], [address], [place], [place], [address] , [place] tel:[phone] [facility] Pain in joint involving multiple sitesNeuralgia, neuritis, and radiculitis, unspecified 1 Arsen Curtis. [address] [facility], [place], [place], [address]. tel:[phone] Referring Provider: Elmer Mandujano , [address] [place] [address], [place], [address] . tel:[phone] [facility], [address], [place], [place], [address] , [place] tel: [phone] [facility] Routine general medical examination at a health care facilityOther and unspecified hyperlipidemiaRou dedrick general medical examination at a health care facilityNEED FOR PROPHYLACTIC VACCINATION WITH COMBINED DIPHTHERIA-TETANU S-PERTUSSIS (DTP) (DTAP) VACCINE 0-201 1 Delbert Payne. [address] [place] [address], [place], [place], [address], [place]. tel:[phone] Referring Provider: Elmer Mandujano , [address] [place] [address], [place], [address] . tel:[phone] [facility], [address], [place], [place], [address] , [place] tel: [phone] [facility] RECURR DEPR PSYCHOS-MODHYPERL IPIDEMIA NEC/NOS 0 Delbert Payne. [address] [place] [address], [place], [place], [address], [place]. tel:[phone] [facility], [address], [place], [place], [address] , [place] tel: [phone] [facility] DIARRHEA OF INFECT ORIG 8200 9 Delbert Payne. [address] [place] [address], [place], [place], [address], [place]. tel:[phone] [facility], [address], [place], [place], [address] , [place] tel: [phone] [facility] ANEMIA NOSMALAISE AND FATIGUE NEC 8200 9 Delbert Payne. [address] [place] [address], [place], [place], [address], [place]. tel:[phone] [facility], [address], [place], [place], [address] , [place] tel: [phone] [facility] BACKACHE NOSDEPRESS PSYCHOSIS-UNSPECJ OINT PAIN-L/LEGACUTE URI NOS 2-200 8 Delbert Payne. [address] [place] [address], [place], [place], [address], [place]. tel:[phone] [facility], [address], [place], [place], [address] , [place] tel: [phone] [facility] SCRN MALIG NEOP-PROSTATE May-0 5-200 8 Delbert Payne. [facility], [address], [place], [place], [address], [place]. tel:[phone] [facility], [address], [place], [place], [address] , [place] tel: [phone] [facility] CHEST PAIN NEC 7-200 7 Delbert Payne. [address], [place], [place], [address], [place]. tel:[phone] [facility], [address], [place], [place], [address] , [place] tel: [phone] [facility] CALCULUS OF KIDNEY 6-200 6 Delbert Payne. [address] [place] [address], [address] [address], [place], [place], [address], [place]. tel:[phone] [facility], [address], [place], [place], [address] , [place] tel: [phone] [facility] PALPITATIONS 0-200 6 Delbert Payne. [address] [place] [address], [facility] [address], [place], [place], [address], [place]. tel:[phone] [facility], [address], [place], [place], [address] , [place] tel: [phone] [facility] ATTN DRESSNG/SUTUR 2-200 5 Delbert Payne. [address], [facility] [address], [place], [place], [address], [place]. tel:[phone] [facility], [address], [place], [place], [address] , [place] tel: [phone] [facility] OPEN WOUND ARM NOS-COMPL 2-200 5 Arsen Kirsten. [address] [facility], [place], [place], [address]. tel:[phone] [facility], [address], [place], [place], [address] , [place] tel: [phone] [facility] CALCULUS OF URETER 5 Delbert Payne. [address], [facility] [address], [place], [place], [address], [place]. tel:[phone] [facility], [address], [place], [place], [address] , [place] tel: [phone] [facility] ALLERGIC RHINITIS NOS May- 5200 4 Delbert Payne. [address], [place] [address], [place], [place], [address], [place]. tel:[phone] [facility], [address], [place], [place], [address] , [place] tel: [phone] [facility] ROUTINE MEDICAL EXAM 4 Delbert Payne. [address], [place] [address], [place], [place], [address], [place]. tel:[phone] [facility], [address], [place], [place], [address] , [place] tel: [phone] [facility] LIPOMA NEC 3 Arsen Kirsten. [address] [facility], [place], [place], [address]. tel:[phone] [facility], [address], [place], [place], [address] , [place] tel: [phone] [facility] ABDMNAL PAIN UNSPCF SITE 1 Aquiles Clarke. [address], [facility] [address], [place], [place], [address]. tel:[phone] Family History Family Member Type Diagnosis Age At Onset Father Problem (finding) alzheimer's disease 80 Immunizations Vaccine Date Status Comments Flublok, quadrivalent, preservative free, 0.5mL dosage administered Source: New Immunization Record [employer] (D[employer] d) COVID19 Vaccine, 0.3mL per dose, 2 doses, administered 21 days apart administered Source: Other Aristides garcia [employer] ([employer]) COVID19 Vaccine, 0.3mL per dose, 2 doses, administered 21 days apart administered Note: pharmacy ; Shirley rce: Other Registry Pneumococcal polysaccharide PPV23 administered Source: New Immuniza tion Record Flublok, quadrivalent, preservative free, 0.5mL dosage administered Source: New Immunization Record SHINGRIX (Zoster vaccine recombinant, adjuvanted) administered Note: [facility] ; Source: Other Provider SHINGRIX (Zoster vaccine recombinant, adjuvanted) administered Note: [facility] ; Source: Other Provider Zoster administered Source: New Imm unization Record Tdap administered Source: New Imm unization Record Payers Payer name Insurance type Covered constitution party ID Authoriza tion(s) [employer] MB [id number] [employer] [place] [id number] MEDICARE MB [id number] [employer] NAP CI [id number] MEDICARE MB [id number] [employer]ET[employer] NAP CI [id number] [facility] CI [id number] Social History Type Description Quantity Date Captured Comments Alcohol Use Details Unknown Caffeine Use Details Unknown Tobacco Use Status No Information Smoking Status No Information Sex Male Sexual Orientation Straight or heterosexual Gender Identity Male Chief Complaint And Reason For Visit No Information Reason For Referral Reason For Referral No Information Plan Of Treatment Date Type Action Status Goal Dietary manageme nt education, guidance, and counseling completed Goal Dietary manageme nt education, guidance, and counseling completed Goal Dietary manageme nt education, guidance, and counseling completed Goal Dietary manageme nt education, guidance, and counseling completed Goal Dietary manageme nt education, guidance, and counseling completed [place]erral [place] [id number] [address], [address] [phone] Ordered: Referrals: *[facility]. Sreekanth Spivey MD. Evaluation/diagnostic/treatment - Level 3 ordered Referral Referred To: Aura Morris Ordered: Referrals: Audiology. Aura Morris. Location: [facility]. Evaluation/diagnostic/treatment - Level 3 Appointment date/timeframe: 01/06/2024 ordered Referral Referred To: Physical Therapy Ordered: Referrals: Physical Therapy. Location: [facility] [place]. Evaluation/diagnostic/treatment - Level 3 ordered Referral Referred To: Fish Multani MD [address] [facility]
[address] [place], [address] [phone] Ordered: Referrals: Otolaryngology. Fish Multani MD. Evaluation/diagnostic/treatment - Level 3 ordered Referral Ordered: XR finger right, 3 views Right 5th finger Appointment date/timeframe: Today ordered Referral Referred To: Esmer Stringer [facility]
[address] [place], [address] [id number] Ordered: Referrals: Hand surgery. Esmer Stringer. Evaluation/diagnostic/treatment - Level 3 Appointment date/timeframe: 01/19/2023 ordered Referral Ordered: MRI brain and brain stem wo contrast Appointment date/timeframe: 2 Weeks ordered Referral Referred To: Axel Angeles MD [address] [place], [address] [phone] Ordered: Referrals: Orthopedic Surgery. Axel Angeles MD. Evaluation/diagnostic/treatment - Level 3 Appointment date/timeframe: 08/24/2020 ordered Referral Referred To: Arthur Lee MD [address] [facility]
[address] [place], [address] [phone] Ordered: Referrals: Otolaryngology. Arthur Lee MD. Evaluation/diagnostic/treatment - Level 3 Appointment date/timeframe: 08/21/2019 ordered Referral Ordered: Radiologic examination, foot; complete, minimum of 3 views Left foot ordered Patient Education Keila Maneuver at Home for Vertigo: Exercises completed Patient Education Iliotibial Ban d Syndrome: Exercises completed Patient Education Rotator Cuff: Exercises completed Future Order: Lab Order PSA ([id number]), Collected on: , Sent on: Sent Future Order: Radiology Order Ra diologic examination, foot; complete, minimum of 3 views Left foot ([id number]), Body Site: foot, Sent on: Sent History Of Present Illness Encounter Date Complaint History Of Prese nt Illness acute visit Pertinent negati ves include abdominal pain, chest pain, cough, diarrhea, dyspnea, fatigue, headache, nausea, rash, vomiting, wheezing, constipation, fever, chills, easy bleeding and joint pain.68-year-old male presents to the clinic due to on and off abdominal pain. The patient was last seen in the clinic last year. He has history of migraines, REM sleep disorder, and vestibular issues. The patient works in [employer] and this past January he had fever, chills, cough. He reports that it has improved since that time but has had a lingering cough.Vestibular and neuropathy- Started on venlafaxine by neurology. Diagnosed with neuropathy and vestibular migraines. Has been on venlafaxine for the past 3 weeks. He does note there has been some slight improvement. He does also continue to take multivitamins for his peripheral neuropathy.He is established with patrol agent for vestibular therapy for aural. Vertigo.Shortness of breath- Experienced shortness of breath with activity and moving heavy tree limbs while at [employer]. Palpitations that comes and goes. It feels like a strong beat. Long COVID? - Dizziness, and feeling off, he feels a disconnected in brain. In the past 3-4 months, not emptying the bladder. He notes that he has not noticed his sildenafil as effective as before. The patient lives an active lifestyle. 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 acute visit Chief complaint: laceration. Symptoms started 3 hours ago; are moderate Pt reports left eyelid laceration occurred when using the chainsaw to remove a branch today. A piece of the branch broke off and caused the laceration. He denies any injury to the eye. He applied pressure and then Neosporin to the wound once th bleeding stopped.Last Tdap 4 years ago. finger infection The symptoms be tara 3 months ago. 67-year-old man here today reports a fishhook injury in his right fifth finger that occurred in September when a fish flopped and a small hook went into the pad of his fifth finger. He removed the hook immediately but he continues to have an area of tenderness, erythema and induration in the pad of this finger. spells 67-year-old man continues to experience symptoms of disconnection, fatigue which are intermittently present and at times seem to be associated with head movement. On one episode he noted head position resulted in jumping in his vision. He reports no vomiting but the overwhelming need to sleep when these occur. His symptoms may last 15 seconds or all day. His symptoms started in September and now persist. Please see last office note from October 28. Patient religiously doing the Keila maneuver daily without improvement. Patient reports no change in his hearing. Patient encounter 67-year-old celia carmona added to my schedule today for chief complaint of intermittent dizziness, fatigue, decreased stamina. Patient reports his symptoms started about 6 weeks ago. He understands that his symptoms are vague and he has various theories about why they occurred. In addition to his other symptoms he feels like his brain is in a fog although in talking to his spouse who accompanied him he remains able to do many things. 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 He goes to sleep about the same time and wakes up after 7-8 hours generally refreshed. He reports no fever, chills, runny nose, cough, change in hearing, shortness of breath, chest pain, nausea, vomiting, diarrhea. He is a little concerned that he has gained some weight but attributes this to less exercise. In discussing his symptoms he notes that he can trigger the dizziness if he looks down when he is standing and he felt afraid of falling but has not fallen. He is concerned that he could have a brain tumor but notes no problems with balance, loss of control of arm or leg, memory lapse or episodes of shaking and loss of consciousness or incontinence. Patient encounter Patient encounter 66-year-old celia carmona went to donate blood and was rejected because his blood count was too low. He is not certain if it was simply his hematocrit or if they also tested his iron. In conjunction he reports some symptoms of fatigue and he is on some days unable to work like he once did. Patient has no prior history of anemia, review of his blood test 6 months ago shows a normal hemoglobin. Patient reports gluten sensitivity but no problems with diarrhea, abdominal pain or melena.Today patient also reports some days when he is fatigued and takes a nap he is refreshed but other times he has bilateral shoulder, hip and knee pain. He has stiffness in his right second MCP joint that began 5-6 months ago after minor injury twisting a bottle but has not improved. The joint is swollen. Patient has no prior history of rheumatoid arthritis, psoriatic arthritis or arthritis associated with inflammatory bowel disease. Medicare preventive A Health Ris k Assessment has been performed and reviewed. The patient has not felt depressed and has had interest and pleasure doing things recently. Cognitive status assessed on 09/03/2018. The ''Up and Go'' test took less than 30 seconds and the patient does not need help with activities of daily living. The patient is not at risk for falls. The patient has not fallen in the last year. The fall(s) did not result in injury. Patient exercises 2-3 times/week. The patient has smoke detectors, firearms, carbon monoxide detectors in the home. Patient reports using a seatbelt in vehicles. Patient does not take calcium. Patient reports not taking Vitamin D. Patient does not take a multivitamin. Patient does not take folic acid. Relevant history is positive for alcohol use. Relevant history is negative for tobacco use, passive vaping exposure and passive smoke exposure. In the past year the patient has had 4 or more drinks in a day 0 time(s). Screening services were reviewed and updated. follow up Chronic Conditions *See Chronic Conditions HPI musculoskeletal pain Onset: 3 to 4 months ago. It occurs intermittently and is fluctuating. Location: left upper leg. The pain radiates to the left calf. The pain is aching. Context: there is no injury. The pain is aggravated by sitting. The pain is relieved by massage. Associated symptoms include difficulty initiating sleep, nocturnal awakening and nocturnal pain. Pertinent negatives include decreased mobility, joint instability, joint tenderness and swelling. Medicare preventive A Health Ris k Assessment has been performed and reviewed. The patient has not felt depressed and has had interest and pleasure doing things recently. Cognitive status assessed on 09/03/2018. Patient exercises 2-3 times/week. The patient has smoke detectors, firearms, carbon monoxide detectors in the home. Patient reports using a seatbelt in vehicles. Relevant history is positive for alcohol use. Relevant history is negative for tobacco use, passive vaping exposure and passive smoke exposure. In the past year the patient has had 4 or more drinks in a day 0 time(s). Screening services were reviewed, no changes made. acute visit musculoskeletal pain Onset: 6 we eks ago. Location: right foot (bottom of foot). The pain is aching. Context: there is an injury. The pain is relieved by elevation and ice. Associated symptoms include bruising, decreased mobility, joint tenderness and limping. musculoskeletal pain (comments) Patient reports sudden onset six weeks ago of pain in his left foot, plantar aspect this occurred after he was painting a house and standing on a ladder. After some reading he decided he had plantar fasciitis and he changed his shoes, started wearing arch supports, finished the job that required him standing on a ladder and reports his symptoms were getting better until yesterday.Yesterday he tripped and begin to fall but hopped, righted himself and landed heavily on his left foot with immediate onset of pain in his left midfoot. After this bearing weight was exquisitely tender. He treated this with rest ice and elevation in today he is a little better but still has significant pain bearing weight. As per my recommendation he had an x-ray before his visit which happily found no fracture. Medicare preventive The patient has not felt depressed and has had interest and pleasure doing things recently. Cognitive Status: (Cognitive status has not changed) on 09/03/2018. The ''Up and Go'' test took less than 30 seconds and the patient does not need help with activities of daily living. The patient is not at risk for falls. The patient has not fallen in the last year. The fall(s) did not result in injury. Patient exercises 2-3 times/week. The patient has smoke detectors, firearms, carbon monoxide detectors in the home. Patient reports using a seatbelt in vehicles. Patient does not take calcium. Patient reports not taking Vitamin D. Patient does not take a multivitamin. Patient does not take folic acid. Relevant history is positive for alcohol use. Relevant history is negative for tobacco use. In the past year the patient has had 5 or more drinks in a day 0 time(s). Functional Status Date Functional Assessmen t No Information Instructions Date Instruction Additional Infor marina I explained the natu ral history of prostate cancer, indications for clinical staging, the Nicolette scoring system and treatment options. We specifically discussed the role of active surveillance and the various protocols. We discussed the different types of radiation treatment including external beam radiation and brachytherapy. I explained the side effects or radiation therapy including erectile dysfunction, irritative voiding symptoms, seed erosion et cetera. We discussed open and robotic surgery. I discussed complications of surgery including blood loss, incontinence, trocar site hernia, erectile dysfunction, rectal injury et cetera. Literature was provided to the patient. Multiple questions were answered. Related to Malignant neoplasm of prostate Related to Only orlin PSA I recommend we proce ed with a prostate biopsy. The risk and benefits of a prostate biopsy including lower urinary tract symptoms, urinary tract infection, sepsis, blood in semen, blood in urine, rectal bleeding were all explained. An information packet was provided. Antibiotics to be taken prior to biopsy were provided. Related to Elevated PSA We will plan for colonoscopy in 2024 Related to Encounter for screening for cancer of colon Continue with venlafaxine Relate d to Idiopathic peripheral neuropathy We will check your P SA. I will order Flomax Related to Urinary frequency Tamsulosin was order ed. Will trial for 30 days. Related to Encounter for screening prostate specific antigen (PSA) measurement Continue with hydrat ion and diet as tolerated. Related to Dizziness Dietary management e ducation, guidance, and counseling Related to Body mass index (BMI) 27.0-27.9, adult Wash wound with warm water daily. Pat dry. Apply a layer of Neosporin to area twice daily. Use a qtip to apply. Allow steri strips to fall off on their own. I expect they will remain in place for 5 to 7 days.Repot any redness, discharge, failure to heal or concerns to the office. Related to Left eyelid laceration, initial encounter wound care Dietary management e ducation, guidance, and counseling Related to Body mass index (BMI) 26.0-26.9, adult I ordered an x-ray o f your right fifth finger to look for foreign object. I prescribed doxycycline 100 mg twice a day for 2 weeks for the possibility of an infection in your finger. Please remember this can increase your risk for sunburns so cover up when you are outside. If you have a sinus infection that is contributing to your dizziness doxycycline would also be an appropriate treatment for a bacterial sinusitis. Related to Injury of finger of right hand, initial encounter We discussed your co ntinued episodes. I still think this could be BPPV, but your continue symptoms and lack of response to the Keila maneuver led me to order an MRI of your brain today. Related to Dizziness We discussed PSA scr eening for prostate cancer. We elected to screen you today. I ordered a blood test for PSA to screen for prostate cancer. I will contact you with test results. You understand if your PSA is greater than 4, I will refer you to a urologist for further evaluation, which could include a prostate biopsy. Related to Encounter for screening for malignant neoplasm of prostate Dietary management e ducation, guidance, and counseling Related to Body mass index (BMI) 26.0-26.9, adult We discussed your sy mptoms. I ordered blood tests for metabolic reasons but think this is coming from your inner ear. We discussed a trial of the Keila maneuver at home if your blood tests are normal. Related to Dizziness We discussed the ane karla discovered by the [place]. I ordered blood test for blood cell counts and tests for iron. Related to Mild anemia I ordered tests for inflammatory arthritis Related to Hand arthritis I ordered a blood te st for blood cell counts and anemia. I ordered a blood test for potassium, glucose, liver and kidney function. Related to Osteoarthritis of knee, unspecified We discussed PSA scr eening for prostate cancer. We elected to screen you today. I ordered a blood test for PSA to screen for prostate cancer. I will contact you with test results. You understand if your PSA is greater than 4, I will refer you to a urologist for further evaluation, which could include a prostate biopsy. Related to Encounter for screening for malignant neoplasm of prostate I ordered a blood te st for lipid panel; this measures total, good and bad cholesterol and triglycerides. Related to Encounter for lipid screening for cardiovascular disease We gave you an influ karen vaccine today. Related to Encounter for immunization We discussed prevent [place] care, including recommendations made by the [place] Preventive Services Task Force appropriate for you. Related to Encounter for general adult medical examination without abnormal findings Dietary management e ducation, guidance, and counseling Related to Body mass index (BMI) 24.0-24.9, adult I think this is IT b and syndrome. I gave your stretching exercises for your discomfort. Related to Left knee pain, unspecified chronicity Dietary management e ducation, guidance, and counseling Related to Body mass index (BMI) 25.0-25.9, adult I ordered a blood te st for lipid panel; this measures total, good and bad cholesterol and triglycerides. Related to Encounter for lipid screening for cardiovascular disease We gave you an influ karen vaccine today. We gave you a Pneumovax, pneumonia vaccine today. Related to Encounter for immunization I think you can stop the antibio tics. Related to Diverticulitis We discussed prevent [place] care, including recommendations made by the [place] Prevent[employer] Services Task Force appropriate for you. You are due for colonoscopy in 2024 Related to Encounter for general adult medical examination without abnormal findings I ordered PSA Related to Benig n prostatic hyperplasia with weak urinary stream We discussed your in jury. I recommend you not bear weight on your left foot for one week. You should wear supportive shoes after this and pay attention to pain for your recovery. Related to Injury of left foot, initial encounter We discussed prevent [place] care, including recommendations made by the [place] Preventive Services Task Force appropriate for you. Related to Encounter for general adult medical examination without abnormal findings I recommend you rece [place] the new Shingles/ Zoster vaccine, Shingrix. This is a 2 injection vaccine. It can cause muscle pain. Tylenol usually helps this. Patients with Medicare must get this at a pharmacy. Please contact your pharmacy to arrange your vaccine.We discussed pneumonia vaccination with Prevnar and Pneumovax. Related to Immunization counseling We discussed your al lergic rhinitis and possible treatments including [id number] antihistamines and nuxp-dep-epvvztn nasal steroids. Related to Allergic rhinitis, unspecified seasonality, unspecified trigger We discussed the dif ferential diagnosis of compression versus metabolic neuropathy. I ordered blood tests for medical diseases that can present with neuropathy, thyroid dysfunction, diabetes mellitus, B12 deficiency. Related to Neuropathy I prescribed generic sildenafil (Viagra) 20mg tablets. I recommend you try 1-5 tablets (20mg-100mg) on an empty stomach about one hour before sex.If you experience an erection lasting more than 4 hours, change in vision or dizziness, please seek care in the emergency room. Related to Erectile dysfunction, unspecified erectile dysfunction type I ordered a blood te st for lipid panel; this measures total, good and bad cholesterol and triglycerides. Related to Encounter for lipid screening for cardiovascular disease I ordered a urinalys is. I ordered PSA blood test to look for possible prostate cancer although your physical exam suggest that is this is not the cause. We discussed possible medical therapies including tamsulosin plus finasteride to improve your ability to empty your bladder. Related to Benign prostatic hyperplasia with weak urinary stream Assessments Type Assessment Date No Information Patient Care Teams Name Effective Dates (start - stop) Status Members No Information
--- OUTSIDE RECORDS SUMMARY | 2024-05-15 15:03 | XMS_ITS | Encounter Summary ---
Author Organization [facility] Address 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
--- OUTSIDE RECORDS SUMMARY | 2024-05-15 15:03 | XMS_ITS | Encounter Summary ---
Author Organization [facility] Address 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
--- OUTSIDE RECORDS SUMMARY | 2024-05-15 15:03 | XMS_ITS | Clinical Summary ---
Author Organization [facility] [address] Address [address] [place] [address] Care Team Providers Care Human Resource Statistician Name Role Phone Elmer Mandujano MD Primary Care Provider Allergies No known active allergies Medications nitroglycerin (NITROSTAT) 0.4 mg SL tabletIndicatio ns:Other chest pain Take 1 tablet (0.4 mg total) by mouth every 5 (five) minutes as needed (up to 3 doses). 60 tablet 3 04/10/2017 Active aspirin 81 mg tablet Take 81 mg by mouth daily. Active Active Problems Problem Noted Date Diagnosed Date Other chest pain 04/10/2017 Assessment & Plan (04/10/2017 10:27 AM FRAME REPAIRER): Suspected as a spasm versus small vessel ischemia. I will prescribe sublingual nitroglycerin as needed. Also discussed with the patient about taking L Argenine supplement. Continue baby aspirin Surgical History Surgery Date Site/Laterality Comments CHOLECYSTECTOMY ROTATOR CUFF REPAIR bilateral TENDON REPAIR right hand HERNIA REPAIR TONSILLECTOMY Medical History Medical History Date Comments Hearing loss Bilateral Family History Medical History Relation Name Comments Alzheimer's disease Father Other Mother aaccidental yuli th Relation Name Status Comments Father (Age 90) Mother (Age 90) Social History Tobacco Use Types Packs/Day Years Used Date Smoking Tobacco: Never Smokeless Tobacco: Never Alcohol Use Standard Drinks/Week Comments Yes 0 (1 standard drink = 0.6 oz pure alcohol) half a glass of wine before bed Personal Safety Answer Date Recorded Getting School Help Needed Not on file 04/03 Sex and Gender Information Value Date Recorded Sex Assigned at Not on file Legal Sex Male 7:33 PM FRAME REPAIRER Gender Identity Not on file Sexual Orientation Not on file Obstetrics History Last Filed Vital Signs Vital Sign Reading Time Taken Comments Blood Pressure 120/72 04/10/2017 8:31 AM FRAME REPAIRER Pulse 65 04/10/2017 8:31 AM FRAME REPAIRER Temperature - - Respiratory Rate - - Oxygen Saturation 97% 04/10/2017 8:31 AM FRAME REPAIRER Inhaled Oxygen Concentration - - Weight 76.2 kg (168 lb) 04/10/2017 8:31 AM FRAME REPAIRER Height 167.6 cm (5' 6 ) 04/10/2017 8:31 AM FRAME REPAIRER Body Mass Index 27.12 04/10/2017 8:31 AM FRAME REPAIRER Plan of Treatment Health Maintenance Due Date Last Done Comments Colon Cancer Screening-Colonoscopy 1955 Depression Screening 1955 Fall Risk Assessment 1955 Hepatitis C Screening 1955 DTaP/Tdap/Td Vaccine (1 - Tdap) 1964 Hepatitis B Screening 1971 Abdominal Aortic Aneurysm (A AA) Screen 2018 Well Visit 65+ 2018 Pneumococcal vaccine 65+ (2 of 2 - PCV) 01/19/2021 01/20/2020 Covid-19 Vaccine (3 - 2023-2 5 season) 2023 12/01/2020, 11/09/2020 Influenza Vaccine (#1) 2023 02/01/2021, 2019 Zoster Vaccine Completed 12/14/2018, 04/2018, 09/25/2018, Additional history exists Insurance [facility] H[facility]/PPO Address: [address] [address] [place] [address] [facility] Care Teams Human Resource Statistician Relationship Specialty Start Date End Date Elmer Mandujano MD PCP - General Internal Medicine 03/02/17
--- OUTSIDE RECORDS SUMMARY | 2024-05-15 15:03 | XMS_ITS | Referral Summary ---
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 I will prescribe sublingual nitroglycerin as needed. Also discussed with the patient about taking L Argenine supplement. 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 Gender Identity Not on file Sexual Orientation Not on file Last Filed Vital Signs Vital Sign Reading Time Taken Comments Blood Pressure 120/72 04/10/2017 8:31 AM TRAVERSE ROD ASSEMBLER Pulse 65 04/10/2017 8:31 AM TRAVERSE ROD ASSEMBLER Temperature - - Respiratory Rate - - Oxygen Saturation 97% 04/10/2017 8:31 AM TRAVERSE ROD ASSEMBLER Inhaled Oxygen Concentration - - Weight 76.2 kg (168 lb) 04/10/2017 8:31 AM TRAVERSE ROD ASSEMBLER Height 167.6 cm (5' 6 ) 04/10/2017 8:31 AM TRAVERSE ROD ASSEMBLER Body Mass Index 27.12 04/10/2017 8:31 AM TRAVERSE ROD ASSEMBLER Plan of Treatment Not on file Insurance [facility]PP[facility] Address: [address] [address] [place] [address] [facility] Care Teams Woodwind Reeds Cutter Relationship Specialty Start Date End Date Elmer Mandujano MD PCP - General Internal Medicine 03/02/17
[2024-05-15] MEDS: ASPIRIN 81 MG CHEWABLE TABLET 324 MG PO (15:21)
[2024-05-15] MEDS: NITROGLYCERIN SL 0.4 MG TABLET SUBLINGUAL (15:50)
[2024-05-15] MEDS: MORPHINE SULFATE (*CRX) 4 MG/ML INJ 2 MG IV PUSH (15:50)
--- NOTE | 2024-05-15 16:23 | ECG_ITS ---
Test Date: 2024-05-15 15:58:57 Measurements Intervals [place] Rate: 58 P: 12 CO: 174 QRS: -11 QRSD: 85 T: 2 QT: 378 QTc: 371 Interpretive Statements SINUS BRADYCARDIA LOW QRS VOLTAGE IN PRECORDIAL LEADS CONSIDER ANTERIOR INFARCT, AGE INDETERMINATE INFERIOR INFARCT, AGE INDETERMINATE ABNORMAL ECG Compared to ECG 05/15/2024 13:28:55 HEART RATE HAS DECREASED Low QRS voltage now present Electronically Signed On 05-15-2024 16:15:43 DENTURE MODEL MAKER by Sathya Britt D.O.
--- OUTSIDE RECORDS SUMMARY | 2024-05-15 16:29 | XMS_ITS | Encounter Summary ---
Author Organization [facility] Address 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
--- OUTSIDE RECORDS SUMMARY | 2024-05-15 16:29 | XMS_ITS | Patient Health Summary ---
Author Organization [facility] Address [address] [place] [address] Care Team Providers Care Power Driven Brush Maker Name Role Phone Nataliia Thomas RN Unavailable [phone] Fish Aguilera MD Primary Care Provider [phone] Note [address] [facility],non-owned Affiliates and Associated Physician Practices is amultiple site organization consisting of ambulatory clinics and hospital sitesin [place], [place], [place] and [place]. This disclosure is being madepursuant to the Care Everywhere program and may not contain all information available regarding this patient. Last updated 17.[facility] Allergies No known active [...] Comments Blood Pressure 120/74 04/01/2024 3:02 PM PLASTIC EXTRUDING MACHINE OPERATOR Pulse 73 04/01/2024 3:02 PM PLASTIC EXTRUDING MACHINE OPERATOR Temperature 36.6 C (97.9 F) 08/01/2016 12:01 PM CDT Respiratory Rate 16 08/01/2016 12:01 PM CDT Oxygen Saturation 99% 08/01/2016 12:01 PM CDT Inhaled Oxygen Concentration - - Weight 78.9 kg (174 lb) 04/01/2024 3:02 PM PLASTIC EXTRUDING MACHINE OPERATOR Height 167.6 cm (5' 6 ) 04/01/2024 3:02 PM PLASTIC EXTRUDING MACHINE OPERATOR Body Mass Index 28.08 04/01/2024 3:02 PM PLASTIC EXTRUDING MACHINE OPERATOR Medical Devices Implanted Type Area Adjunct Professor Of Voice Device Identifier Shelf Expiration Date Model / Serial / Lot Mesh Implanted:Qty: 1 on 10/16/2012 by Shiv Lowe MD at [facility] [employer] 04/19/2017 [facility] / / [id number] Description:extended Procedures * EMG WITH NERVE CONDUCTION [...] WITH NERVE CONDUCTION STUDY (02/13/2024 1:30 PM PLASTIC EXTRUDING MACHINE OPERATOR) Narrative Sanchez Becerril MD - 02/13/2024 1:30 PM PLASTIC EXTRUDING MACHINE OPERATOR Sanchez Becerril MD 02/13/2024 1:[address], [address] [phone] Patient: Jeffy Becerra V #: Physician: Sanchez Becerril MD Sex: Male ID#: [id number] Ref Phys: Sanchez Becerril MD. : [id number] Date: 02/13/[address] Department: Odilia Fraser Patient Complaints: The patient is [...] Please correlate clinically Sanchez Becerril MD Diplomate, [place] [employer]iatry and Neurology Board Certified [...] * C-REACTIVE PROTEIN (CRP) (02/07/2024 10:43 AM PLASTIC EXTRUDING MACHINE OPERATOR) C-Reactive Protein <1 0 - 10 mg/L [facility] INSURANCE BILL Blood BLOOD SPECIMEN / Unknown 02/07/2024 10:43 AM PLASTIC EXTRUDING MACHINE OPERATOR 02/07/2024 Narrative [facility] INSURANCE BILL - 02/08/2024 6:15 AM PLASTIC EXTRUDING MACHINE OPERATOR Performed at: [address] [place] [id number] Floor Framer: Omar Conway PhD, Phone: [phone] Sanchez Becerril MD LAB - CHEMISTRY MARY ANNE WOLFE Performing Organization Address [facility] Phone Number [facility] INSURANCE BILL [address] [place] [address] * VITAMIN B12 FOLATE PANEL (02/07/2024 10:43 AM PLASTIC EXTRUDING MACHINE OPERATOR) Pathologist [facility] Vitamin B12 1,005 232 - 1,245 pg/mL [facility] INSURANCE BILL Folate 8.0 >3.0 ng/mL [facility] INSURANCE BILL Comment: A serum folate concentration of less than 3.1 ng/mL is considered to represent clinical deficiency. Blood BLOOD SPECIMEN / Unknown 02/07/2024 10:43 AM PLASTIC EXTRUDING MACHINE OPERATOR 02/07/2024 Narrative [facility] INSURANCE BILL - 02/08/2024 6:15 AM PLASTIC EXTRUDING MACHINE OPERATOR Performed at: [address] [place] [id number] Floor Framer: Omar Conway PhD, Phone: [phone] Sanchez Becerril MD LAB - CHEMISTRY MARY ANNE WOLFE Performing Organization Address [facility] Phone Number [facility] INSURANCE BILL [address] [place] [address] * CELIAC AB SCREEN W REFLEX (02/07/2024 10:42 AM PLASTIC EXTRUDING MACHINE OPERATOR) Antigliadin Antibody IgA 3 0 - 19 [...] BLOOD SPECIMEN / Unknown 02/07/2024 10:42 AM PLASTIC EXTRUDING MACHINE OPERATOR 02/07/2024 Narrative [facility] INSURANCE BILL - 02/08/2024 3:10 PM PLASTIC EXTRUDING MACHINE OPERATOR Performed at: [address] [id number] Floor Framer: Omar Conway PhD, Phone: [phone] Sanchez Becerril MD LAB - SEROLOGY ORDER KOURTNEY Performing Organization Address [facility] Co de Phone Number [facility] INSURANCE BILL [address] [place] [address] * IMMUNOFIXATION BLOOD (02/07/2024 10:41 AM PLASTIC EXTRUDING MACHINE OPERATOR) Immunofixation Result Comment [facility] INSURANCE BILL Comment:No monoclonality det ected. IgG Quantitative 901 603 - 1,613 mg/dL [facility] INSURANCE BILL IgA Quantitative 124 61 - 437 mg/dL [facility] INSURANCE BILL IgM Quantitative 88 20 - 172 mg/dL [facility] INSURANCE BILL Blood BLOOD SPECIMEN / Unknown 02/07/2024 10:41 AM PLASTIC EXTRUDING MACHINE OPERATOR 02/07/2024 Narrative [facility] INSURANCE BILL - 02/09/2024 5:09 PM PLASTIC EXTRUDING MACHINE OPERATOR Performed at: [address] [id number] Floor Framer: Omar Conway PhD, Phone: [phone] Sanchez Becerril MD LAB - CHEMISTRY ORDE RABLES Performing Organization Address [facility]/ZIP Co de Phone Number [facility] INSURANCE BILL [address] [place] [address] * MYNOR BLOOD SCREEN W/REFLEX TITER (02/07/2024 10:41 AM PLASTIC EXTRUDING MACHINE OPERATOR) MYNOR Negative [facility] INSURANCE BILL Comment: Negative <1:80 Borderline 1:80 Positive >1:80 ICAP nomenclature: AC-0 For more information about Hep-2 cell patterns use ANApatterns.org, the official website for the International Consensus on Antinuclear Antibody (MYNOR) Patterns (ICAP). Blood BLOOD SPECIMEN / Unknown 02/07/2024 10:41 AM PLASTIC EXTRUDING MACHINE OPERATOR 02/07/2024 Narrative [facility] INSURANCE BILL - 02/08/2024 3:10 PM PLASTIC EXTRUDING MACHINE OPERATOR Performed at: [address] [id number] Floor Framer: Omar Conway PhD, Phone: [phone] Sanchez Becerril MD LAB - CHEMISTRY MARY ANNE WOLFE Performing Organization Address [facility] de Phone Number [facility] INSURANCE BILL [address] [place] [address] * METHYLMALONIC ACID BLOOD (02/07/2024 10:41 AM PLASTIC EXTRUDING MACHINE OPERATOR) Methylmalonic Acid 224 0 - 378 nmol/L [facility] Blood BLOOD SPECIMEN / Unknown 02/07/2024 10:41 AM PLASTIC EXTRUDING MACHINE OPERATOR 02/07/2024 Narrative [facility] INSURANCE BILL - 02/12/2024 7:07 AM PLASTIC EXTRUDING MACHINE OPERATOR Test(s) 227416-Zaoccnuyzczzq Acid, Serum was developed and its performance characteristics determined by [employer]. It has not been cleared or approved by the Food and Drug Administration. Performed at: [address] [id number] Floor Framer: Yash Farris MD, Phone: [phone] Authorizing Provider Result Harry Becerril MD LAB - CHEMISTRY MARY ANNE WOLFE Performing Organization Address [facility] Co de Phone Number [facility] INSURANCE BILL [address] [place] [address] * ERYTHROCYTE SEDIMENTATION RATE (02/07/2024 10:41 AM PLASTIC EXTRUDING MACHINE OPERATOR) Erythrocyte Sedimentation Rate Westergren 2 0 - 30 mm/hr [facility] INSURANCE BILL Blood BLOOD SPECIMEN / Unknown 02/07/2024 10:41 AM PLASTIC EXTRUDING MACHINE OPERATOR 02/07/2024 Narrative [facility] INSURANCE BILL - 02/08/2024 7:13 AM PLASTIC EXTRUDING MACHINE OPERATOR Performed at: - [facility] [address] [place], [place] [id number] Floor Framer: Omar Conway PhD, Phone: [phone] Sanchez Becerril MD LAB - HEMATOLOGY ORD ERABLES Performing Organization Address [facility] Co de Phone Number [facility] INSURANCE BILL [address] [place] [address] * COPPER BLOOD (02/07/2024 10:40 AM PLASTIC EXTRUDING MACHINE OPERATOR) [facility] Signature Copper 94 69 - 132 ug/dL [facility] Comment:Detection Limit = 5 Blood BLOOD SPECIMEN / Unknown 02/07/2024 10:40 AM PLASTIC EXTRUDING MACHINE OPERATOR 02/07/2024 Narrative [facility] INS[facility] - 02/09/2024 5:09 PM PLASTIC EXTRUDING MACHINE OPERATOR Test(s) 605726-Vmsacm, Serum or Plasma was developed and its performance characteristics determined by [facility] [facility]. It has not been cleared or approved by the Food and Drug Administration. Performed at: [address] [id number] Floor Framer: Yash Farris MD, Phone: [phone] Sanchez Becerril MD LAB - CHEMISTRY MARY ANNE WOLFE Performing Organization Address [facility] Co de Phone Number [facility] INSURANCE BILL [address] [place] [address] * MRI BRAIN WO CONTRAST (01/16/2023 9:27 [...] MORE Exam Date: 12/23/2022 10:16 AM Location: [facility] Indication: S69.91XA: Unspecified injury of right wrist, [...] MORE Exam Date: 12/23/2022 10:16 AM Location: [facility] Indication: S69.91XA: Unspecified injury of right wrist, [...] is included. Case Report Dermatopathology Report Case: [id number] Authorizing Provider: Brina Franco DO Collected: 09/16/2021 12:00 AM Ordering Location: [facility] D[facility] Lab Received: 09/16/2021 05:02 PM Pathologist: [...] specimen consists of a shave biopsy measuring [id number]. Jar 0. 2 11:45 AM CDT DERMATOPATHOLOGY [...] characteristic determined by the Dermatopathology Laboratory at [facility], directed by Dr. Jessika Andrade. These tests need not be, and therefore are not, approved by the [place] Food and Drug Administration. The tests are used for clinical purposes. Billing Codes Specimen Charges Stain Charges 73466 1 2 11:45 AM CDT DERMATOPATHOLOGY LABORATORY Embedded Images 2 11:45 AM CDT DERMATOPATHOLOGY LABORATORY Pathology/Cytolog y TISSUE SPECIMEN FROM SKIN / Unknown 09/16/2021 09/16/2021 5:02 PM CDT Brina Franco DO LAB - PATHOLOGY/C YTOLOGY ORDERABLES DERMATOPATHOLOGY LABORATORY [facility] - Department of Dermatology [address], [address] [phone] * XR KNEE 4+ VW RIGHT (02/19/2019 11:14 AM PLASTIC EXTRUDING MACHINE OPERATOR) Anatomical Region Laterality Modality Lower Extremity Computed Radiogr aphy Narrative 02/19/2019 11:16 AM PLASTIC EXTRUDING MACHINE OPERATOR Stacie Fuentes 02/25/2019 2:52 PM SEE PROGRESS NOTES FOR RESULTS Damion Mata MD DIAGNOSTIC IMAGING O RDERABLES * DERMATOPATH TECHNICAL REPORT (05/10/2018 12:00 AM PLASTIC EXTRUDING MACHINE OPERATOR) Case Report Dermatopathology Report Case: [id number] Authorizing Provider: Brina Franco DO Collected: 05/10/2018 12:00 AM Pathologist: Maria Elena Chan MD Received: 05/11/2018 06:27 AM Specimen: Skin, right post shoulder 11:13 AM [facility] DERMATOPATHOLOGY LABORATORY Clinical History Crusted pink papule. ISK R/O SCC non-healing. 11:13 AM [facility] DERMATOPATHOLOGY LABORATORY Gross Description Specimen A: Received is one formalin filled container labeled with the patient's name and designated right post shoulder. The specimen consists of a shave measuring [id number]. Jar 0. [facility] Dermatopathology Laboratory performed the technical component only. 11:13 AM [facility] DERMATOPATHOLOGY LABORATORY Embedded Images 11:13 AM [facility] DERMATOPATHOLOGY LABORATORY DISCLAIMER An external and internal positive and negative controls are appropriate for the histochemical, immunohistochemical and immunofluorescence stain(s) in this case (if any), except where stated explicitly. The performance characteristics of the stain(s) cited in this report were developed and its performance characteristic determined by the Dermatopathology Laboratory at [facility], directed by Dr. Jessika Andrade. These tests need not be, and therefore are not, approved by the [place] Food and Drug Administration. The tests are used for clinical purposes. 11:13 AM [facility] DERMATOPATHOLOGY LABORATORY Pathology/Cytolog y TISSUE SPECIMEN FROM SKIN / Unknown 05/10/2018 05/11/2018 6:27 AM PLASTIC EXTRUDING MACHINE OPERATOR Brina Franco DO LAB - PATHOLOGY/C YTOLOGY ORDERABLES DERMATOPATHOLOGY LABORATORY [facility] - Department of Dermatology [address] [place] [address], 5th Floor Lab [address] [phone] * CARDIAC RHYTHM STRIP ORDER (08/03/2016 4:17 [...] CATH PROCEDURE (08/01/2016 8:34 AM CDT) [facility]ative [facility] 08/01/2016 8:34 AM CDT Mario Camarena [...] observed for moderate sedation by the attending packer dried beef for 30 minutes. Recommendations: Medical management Ok to discharge from cardiac standpoint this afternoon. Mario Camarena MD 08/01/2016 8:32 AM Delbert Thayer MD CARDIAC SERVICE S ORDERABLES [facility] * CARDIAC CATH CONSULT (for Epic Reporting) (08/01/2016 8:34 AM CDT) Narrative [facility] CARDIAC SERVICES - 08/01/2016 8:34 AM CDT [...] observed for moderate sedation by the attending packer dried beef for 30 minutes. Recommendations: Medical management Ok to discharge from cardiac standpoint this afternoon. Mario Camarena MD 08/01/2016 8:32 AM Delbert Thayer MD ECHO ORDERABLES [facility] CARDIAC SERVICES [address] [place], [place] [id number] * NM MYOCARD PERFUSION SPECT STRESS AND REST (07/30/2016 11:19 AM CDT) Anatomical Region Laterality Modality Chest Nuclear Digisoni cs 07/30/2016 9:44 AM CDT Narrative Procedure Note Troo Thayer MD - 07/30/2016 [place] [id number] Nuclear Myocardial Perfusion Report Pat.Name: JEFFY BECERRA Pat.ID: [id number] .Date: 07/30/2016 Exam Time: 9:44:00 AM Study Type:Nuclear Myocardial Perfusion Scan Height: 167.64cm Weight: 78.18kg BSA: 1.88 m2 Age: 1 1955,61Y Sex: MALE Pat. Stat.:Inpatient Room: 4216 Reason for Study:Chest pain Procedures:Exercise Perfusion Scan Race: Visit ID: [id number] Nurse: Urszula Guerrero RN, BSN Risk Factors:None [...] ECG: Normal ECG HR: 61 BP: 135/73 DC Int: 146 ms QRS Int: 80 ms QRS [place]: 418 deg Rhythm: Normal sinus rhythm Stress [...] Elmer Mandujano Overread By: DELBERT THAYER MD [facility] STRESS 07/30/2016 10:2 1 AM CDT 08/19/2016 8:16 AM CDT Delbert Thayer MD CARDIAC SERVICE S ORDERABLES Performing Organization Address City/State/[facility] Co de Phone Number [facility] STRESS * TROPONIN I (07/29/2016 9:59 PM CDT) Only the most recent of3 resultswithin the time period is included. Troponin I <0.015 0.000 - 0.049 ng/mL 07/29/2016 10:22 PM CDT [facility] Blood BLOOD SPECIMEN / Unknown Lab Venipuncture / Unknown 07/29/2016 9:59 PM CDT 07/29/2016 10:01 PM CDT Narrative [facility] - 07/29/2016 10:22 PM CDT Note: [...] Lizama MD LAB - CHEMISTRY ORD ERABLES [facility] [address] [address] * (ABNORMAL) BLOOD GASES ART (07/29/2016 7:28 [...] 07/29/2016 7:32 PM CDT [facility] RESP THERAPY Muck Operator ID HERMILO LOWE 07/29/2016 7:32 PM CDT [facility] RES[facility] THERAP[facility] Blood ARTERIAL BLOOD SPECIMEN / Unknown 07/29/2016 7:28 PM CDT 07/29/2016 7:28 PM CDT Jona Lizama MD LAB - BLOOD GASES O BECKI [facility] RESP THERAPY [address] [place], [place] [address] * XR CHEST PA AND LATERAL (07/29/2016 [...] - 10.7 x10E9/L 07/29/2016 4:20 PM CDT [facility] WBC Corrected x10E9/L 07/29/2016 4:20 PM CDT [facility] RBC 4.54 3.80 - 5.40 x10E12/L 07/29/2016 4:20 PM CDT [facility] Hemoglobin 12.8 12.0 - 17.6 gm/dL 07/29/2016 4:20 PM CDT [facility] Hematocrit 37.9 35.2 - 51.7 % 07/29/2016 4:20 PM CDT [facility] MCV 83.5 80.7 - 98.3 fl 07/29/2016 4:20 PM CDT [facility] MCH 28.2 26.7 - 34.0 pg 07/29/2016 4:20 PM CDT [facility] MCHC 33.8 30.8 - 35.9 gm/dL 07/29/2016 4:20 PM CDT [facility] Platelet Count 290 153 - 416 x10E9/L 07/29/2016 4:20 PM [facility] RDW-CV 13.9 12.1 - 14.9 % 07/29/2016 4:20 PM [facility] MPV 9.3(L) 9.4 - 12.9 fl 07/29/2016 4:20 PM [facility] Neutrophils % 58.7 44.0 - 73.0 % 07/29/2016 4:20 PM [facility] Lymphocytes % 30.5 20.0 - 43.0 % 07/29/2016 4:20 PM [facility] Monocytes % 7.8 5.0 - 13.0 % 07/29/2016 4:20 PM [facility] Eosinophils % 1.9 0.0 - 6.0 % 07/29/2016 4:20 PM [facility] Basophils % 0.7 0.0 - 2.0 % 07/29/2016 4:20 PM [facility] Immature Granulocytes 0.4 0 - 1 % 07/29/2016 4:20 PM [facility] Neutrophil Absolute 4.42 2.01 - 7.14 x10E9/L 07/29/2016 4:20 PM [facility] Lymphocytes Absolute 2.30 1.07 - 3.94 x10E9/L 07/29/2016 4:20 PM [facility] Monocytes Absolute 0.59 0.26 - 1.07 x10E9/L 07/29/2016 4:20 PM [facility] Eosinophils Absolute 0.14 0 - 0.47 x10E9/L 07/29/2016 4:20 PM [facility] Basophils Absolute 0.05 0 - 0.08 x10E9/L 07/29/2016 4:20 PM [facility] Immature Granulocytes Absolute 0.03 0.00 - 0.06 x10E9/L 07/29/2016 4:20 PM [facility] nRBC Auto 0 /100 WBC 07/29/2016 4:20 PM [facility] Blood BLOOD SPECIMEN / Unknown Venipuncture / Unknown 07/29/2016 4:11 PM CDT 07/29/2016 4:17 PM CDT Jona Lizama MD LAB - HEMATOLOGY OR DERABLES [facility] [address] [address] * (ABNORMAL) COMPREHENSIVE METABOLIC PANEL (07/29/2016 4:10 PM T) Only the most recent of3 resultswithin the time period is included. Glucose 99 74 - 106 mg/dL 07/29/2016 4:41 PM [facility] Sodium 143 136 - 145 mmol/L 07/29/2016 4:41 PM [facility] Potassium 4.1 3.5 - 5.1 mmol/L 07/29/2016 4:41 PM [facility] Chloride 109(H) 98 - 107 mmol/L 07/29/2016 4:41 PM [facility] CO2 28 22 - 31 mmol/L 07/29/2016 4:41 PM [facility] Calcium 8.6 8.5 - 10.1 mg/dL 07/29/2016 4:41 PM [facility] Anion Gap 6(L) 8 - 16 mmol/L 07/29/2016 4:41 PM [facility] BUN 21 7 - 21 mg/dL 07/29/2016 4:41 PM [facility] Creatinine 1.08 0.50 - 1.30 mg/dL 07/29/2016 4:41 PM [facility] Alkaline Phosphatase 67 38 - 126 U/L 07/29/2016 4:41 PM [facility] ALT 23 13 - 61 U/L 07/29/2016 4:41 PM [facility] AST 14 5 - 40 U/L 07/29/2016 4:41 PM [facility] Protein Total 6.3(L) 6.4 - 8.2 gm/dL 07/29/2016 4:41 PM [facility] Albumin 3.9 3.4 - 5.0 gm/dL 07/29/2016 4:41 PM [facility] Bilirubin Total 0.4 0.2 - 1.0 mg/dL 07/29/2016 4:41 PM [facility] eGFR by MDRD >60 >60 mL/min/1.7 3m2 07/29/2016 4:41 PM [facility] eGFR by MDRD >60 >60 mL/min/1.7 3m2 07/29/2016 4:41 PM CDT [facility] Blood BLOOD SPECIMEN / Unknown 07/29/2016 4:10 PM CDT 07/29/2016 4:17 PM CDT Jona Lizama MD LAB - CHEMISTRY ORD ERABLES Performing Organization Address [facility] Co de Phone Number [facility] [address] [address] * EKG 12-LEAD (07/29/2016 3:58 PM CDT) Pathologist [facility] Ventricular Rate 64 BPM [facility] MUSE Atrial Rate 64 BPM [facility] P-R Interval 152 ms [facility] QRS Duration ms 74 ms [facility] Q-T Interval ms 374 ms [facility] MUSE QTC Calculation (Bezet) 385 ms [facility] Calculated P [place] -5 degrees [facility] M[facility] Calculated R [place] 7 degrees [facility] M[facility] Calculated T [place] 2 degrees [facility] M[facility] Interpretation EKG Normal sinus rhythm Cannot rule out Inferior infarct , age undetermined Abnormal ECG No previous ECGs available Confirmed by MD KYM, [facility] ([id number]) on 07/30/2016 8:43:37 AM [facility] MUSE 07/29/2016 3:58 PM CDT 07/30/2016 8:43 AM CDT Jona Lizama MD ECG ORDERABLES Performing Organization Address [facility] de Phone Number [facility] MUSE * CT ABDOMEN AND PELVIS WITH [...] No Growth DAO 08/31/2014 5:38 AM CDT [facility] MICROBIOLOGY Blood PERIPHERAL BLOOD / Unknown Venipuncture / Unknown 08/24/2014 8:36 PM CDT 08/24/2014 10:38 PM CDT Umair Avina MD LAB - MICROBIOLOGY O RDERABLES [facility] MICROBIOLOGY [address] [place] [address] [phone] * LACTIC ACID BLOOD (08/24/2014 8:35 PM CDT) [facility] Lactic Acid 0.7 0.7 - 2.1 mmol/L 08/24/2014 10:52 PM CDT [facility] Blood BLOOD SPECIMEN / Unknown 08/24/2014 8:35 PM CDT 08/24/2014 10:37 PM CDT Umair Avina MD LAB - CHEMISTRY MARY ANNE WOLEF Performing Organization Address [facility] Co de Phone Number [facility] [address] [place], [place] [phone] * LIPASE BLOOD (08/24/2014 4:43 PM CDT) [facility] Lipase 120 73 - 393 U/L 08/24/2014 5:07 PM CDT [facility] Blood BLOOD SPECIMEN / Unknown Venipuncture / Unknown 08/24/2014 4:43 PM CDT 08/24/2014 4:53 PM CDT Umair Avina MD LAB - CHEMISTRY MARY ANNE WOLFE Performing Organization Address City/[facility] Co de Phone Number [facility] [address] [place] [address] * (ABNORMAL) URINALYSIS ROUTINE W/REFLEX TO CULTURE (08/24/2014 4:42 PM CDT) [facility] Color UA Yellow Straw, Yellow, Dark Yellow 08/24/2014 4:57 PM CDT [facility] Clarity UA Clear 08/24/2014 4:57 PM CDT [facility] Specific [place]co UA 1.024 1.005 - 1.030 08/24/2014 4:57 PM CDT [facility] pH UA 6.0 5.0 - 8.0 pH 08/24/2014 4:57 PM CDT [facility] Protein UA Negative Negative 08/24/2014 4:57 PM CDT [facility] Blood UA Trace(A) Negative 08/24/2014 4:57 PM CDT [facility] Leukocyte UA Negative Negative 08/24/2014 4:57 PM CDT [facility] Nitrite UA Negative Negative 08/24/2014 4:57 PM CDT [facility] Glucose UA Negative Negative 08/24/2014 4:57 PM CDT [facility] Ketone UA Negative Negative 08/24/2014 4:57 PM CDT [facility] Bilirubin UA Negative Negative 08/24/2014 4:57 PM CDT [facility] Urobilinogen UA 1.0 0.1 - 1.0 EU/dL 08/24/2014 4:57 PM CDT [facility] WBC UA Auto 0-2 0-2, 2-5 # /hpf 08/24/2014 4:57 PM CDT [facility] RBC UA Auto 2-5 0-2, 2-5 # /hpf 08/24/2014 4:57 PM CDT [facility] Epithelial Cell UA Auto 0-2 0-2, 2-5 # /hpf 08/24/2014 4:57 PM CDT [facility] LABORATORY Reflex Status Culture not indicated 08/24/2014 4:57 PM CDT [facility] LABORATORY Urine URINE SPECIMEN OBTAINED BY CLEAN CATCH PROCEDURE / Unknown Collection / Unknown 08/24/2014 4:42 PM CDT 08/24/2014 4:47 PM CDT Umair Avina MD LAB - URINALYSIS ORD ERABLES [facility]OR[facility] [address] [place] [address] * ECG STRESS TRACING (06/13/2014 10:39 AM CDT) [facility] Stress Test Summary Acquisition Time: 2014-06-13 [...] normal stress study. Confirmed by Mariam Galarza ([id number]) on 06/26/2014 7:01:58 AM Attending Physicain: Aura Alberto Referred By: SULTANA Overread By: Mariam Galarza [facility] STRESS 06/13/2014 10:3 9 AM CDT 06/26/2014 7:01 AM CDT Elmer Mandujano MD CARDIAC SERVICES ORDERABLES [facility] STRESS * ECHOCARDIOGRAM STRESS Walking Stress ECHO (06/13/2014 10:23 AM CDT) 06/13/2014 10:2 3 AM CDT Narrative [facility] CARDIOLOGY - 06/15/2014 4:37 PM CDT Exercise Stress Echocardiography Name: JEFFY BECERRA MR #: [id number] Study date: 13-Jun-2014 : 1955 Age: 59 years Gender: Male Height: 56 in Weight: 157 lb BSA: 1.6 m Reading Physician: Mariam Galarza DO Referring Physician: Elmer Mandujano MD Performing Nurse Practitioner: FRANKIE Harrington Real Estate Clerk: Ryder Stallworth RDCS CLINICAL QUESTION: Chest pain [...] peak heart rate and blood pressure was [address]. The patient experienced chest pain during stress; [...] Stress Echocardiography Name: JEFFY BECERRA MR #: [id number] Study date: 13-Jun-2014 : 1955 Age: 59 years Gender: Male Height: 56 in Weight: 157 lb BSA: 1.6 m Reading Physician: Mariam Galarza DO Referring Physician: Elmer Mandujano MD Performing Nurse Practitioner: [facility]I [facility] Real Estate Clerk: Ryder Stallworth RDCS CLINICAL QUESTION: Chest pain [...] peak heart rate and blood pressure was 6[address]46. The patient experienced chest pain during stress; [...] Mandujano MD ECHO ORDERABLES Performing Organization Address City/State/[facility] Co de Phone Number [facility] [address] [place] [address] * GROSS + MICRO EXAM (STL) (10/16/2012 10:15 AM CDT) Case Report Surgical Pathology Report Case: [id number] -------- Authorizing Provider: Shiv Lowe MD Ordering Provider: Shiv Lowe MD Ordering Location: [facility] INTRAOP Collected: 10/16/2012 10:15 AM Pathologist: Michelle Landeros MD Received: 10/16/2012 12:05 PM Signed Out: 10/17/2012 12:21 PM (Final) Specimen: Hernia Sac, right side 10/17/2012 12:22 PM CDT [facility] Final Diagnosis 1. Right inguinal region, hernia sac, excision: -- Hernia sac. /[facility] 10/17/2012 12:22 PM CDT [facility] Gross Description The specimen is labeled, Becerra, Jeffy, and hernia sac . The specimen consists of 1.5 x 0.6 cm rubbery strip of red-cao tissue; submitted in a single cassette. LL/na 10/17/2012 12:22 PM CDT [facility] Microscopic Description Section shows hernia sac and no evidence of neoplastic or inflammatory process. /[facility] 10/17/2012 12:22 PM CDT [facility] Synoptic Report 10/17/2012 12:22 PM CDT [facility] Pathology/Cytolo gy HERNIA SAC / Unknown 10/16/2012 10:15 AM CDT 10/16/2012 12:05 PM CDT Shiv oLwe MD LAB - PATHOLOGY/CYTO LOGY ORDERABLES [facility] [address] [place] [address] Care Teams Power Driven Brush Maker Relationship Specialty Start Date End Date Fish Aguilera MD [place] [id number] PCP - General Internal Medicine 03/29/24 Nataliia Thomas, RN Animal Care Provider 08/25/14
--- OUTSIDE RECORDS SUMMARY | 2024-05-15 16:30 | XMS_ITS | Continuity of Care Document ---
Author Organization [facility] Address [address] [place] [address] Phone Care Team Providers Care Coatings Inspector Name Role Phone Sreekanth Spivey MD Unavailable [...] HOURS. - Active Procedures Procedure Date OFFICE [id number] Visit Complexity Inherent To E/M 2024 GARAMYCIN, [...] PROCEDURE IMMUNOHISTOCHEMISTRY. Each Addtl Single Antibody OFFICE TAODA-JDS-KSIS-MED Visit Complexity Inherent To E/M 2024 Pt inelig neg scrn depres FALL RISK ASSESSMENT DOC'D PRES/ABSN URINE INCON ASSESS PSA, TOTAL ROUTINE VENIPUNCTURE OFFICE ZUUZN-CHF-PAYEWHVA BODY MASS INDEX DOCD SYST BP LT 130 MM HG DIAST BP < 80 MM HG OFFICE ARDOT-RLH-GREUOBYX BODY MASS INDEX DOCD SYST BP LT 130 MM HG DIAST BP < 80 MM HG FALL RISK ASSESSMENT DOC'D PRES/ABSN URINE INCON ASSESS Pt inelig neg scrn depres OFFICE CMBAG-AXZ-WEEWBHBU BODY MASS INDEX DOCD SYST BP LT 130 MM HG DIAST BP < 80 MM HG PSA, TOTAL, SCREENING MEDICARE ONLY ROUTINE VENIPUNCTURE FALL RISK ASSESSMENT DOC'D PRES/ABSN URINE INCON ASSESS Pt inelig neg scrn depres CBC, INC PLATELETS AND DIFFERENTIAL COMPREHEN METABOLIC PANEL CMP IRON (FE), TOTAL TIBC, & % SATURATION LIPID PANEL THYROID STIMULATION HORMONE(TSH) 2022 ROUTINE VENIPUNCTURE OFFICE NFHNA-MUY-ACQYVOYX BODY MASS INDEX DOCD SYST BP LT 130 MM HG DIAST BP < 80 MM HG FALL RISK ASSESSMENT DOC'D PRES/ABSN URINE INCON ASSESS OFFICE [id number]-WSQ-[id number] BODY MASS INDEX DOCD SYST BP LT [...] INC PLATELETS AND DIFFERENTIAL COMPREHEN METABOLIC PANEL [facility] 1 LIPID PANEL PSA, TOTAL, SCREENING MEDICARE ONLY ROUTINE VENIPUNCTURE PPPS, subseq visit BODY MASS INDEX DOCD SYST BP LT 130 MM HG DIAST BP < 80 MM HG OFFICE NYWUM-RJH-YPQTSLKC BODY MASS INDEX DOCD SYST BP LT 130 MM HG DIAST BP < 80 MM HG Pt inelig neg scrn depres Admin influenza virus vac Flu Vac, quad (RIV4), Preservative And A ntibiotic Free IM FALL RISK ASSESSMENT DOC'D PRES/ABSN URINE INCON ASSESS PPPS, subseq visit CBC, INC PLATELETS AND DIFFERENTIAL COMPREHEN METABOLIC PANEL [facility] 0 LIPID PANEL PSA, TOTAL ROUTINE VENIPUNCTURE PNEUMOVAX ADM MEDICARE PNEUMOVAX IMMUNIZATION OFFICE IEVHF-FJH-EREYWAUT SYST BP LT 130 MM HG DIAST [...] Diagnoses Date Provider Providers Copied on Encounter [employer], [address], [place], [place], [address] , tel: [phone] [facility] [place] No Information 5 Patric Stack. [address], [facility], [address], [place], [address], . tel:[phone] OFFICE GPIEA-JLX-CG TAILED [facility], [address], [place], [place], [address] , tel: [phone] [facility] Malignant neoplasm of prostate 5 Patric Stack. [address], [address], [place], [address], . tel:[phone] Referring Provider: Fish bravo, [address], [place], [address] . tel:[phone] [facility], [address], [place], [place], [address] , [place] tel: [phone] [facility] [place] Elevated PSA 5 Patric Stack. [address], [address], [place], [address], [place]. tel:[phone] Referring Provider: Fish bravo, [address], [place], [address] . tel:[phone] [facility], [address], [place], [place], [address] , [place] tel: [phone] [facility] [place] No Information 5 Jason Barron. [address] [place] [address], [facility], . tel:[phone] Referring Provider: Anderson Gomez, [address] [place] [address], [facility]. tel:[phone] [facility], [address], [place], [place], [address] , [place] tel: [phone] [facility] No Information 5 Willy De La Cruz. [address], [facility], [address], [place], [place], [address], [place]. tel:[phone] [facility], [address], [place], [place], [address] , [place] tel: [phone] [facility] No Information 5 Willy De La Cruz. [address], [address], [place], [place], [address], [place]. tel:[phone] OFFICE XZXBJ-IWR-SC MP-MED [employer], [address], [place], [place], [address] , [place] tel: [phone] [facility] [place] Elevated PSABenign prostatic hyperplasia, unspecified whether lower urinary tract symptoms present 5 Patric Stack. [address], [address], [place], [address], [place]. tel:[phone] Referring Provider: Fish bravo, [address], [place], [address] . tel:[phone] [employer], [address], [place], [place], [address] , [place] tel:[phone] [facility] No Information 4 Willy De La Cruz. [address], [address], [place], [place], [address], [place]. tel:[phone] OFFICE KPASK-YMG-NW [facility], [address], [place], [place], [address] , [place] tel: [phone] [facility] acute visit (chief complaint) Body mass index [BMI] 27.0-27.9, adultIdiopathic peripheral neuropathyDizzine ssEncounter for screening for cancer of colonUrinary frequencyEncounte r for screening prostate specific antigen (PSA) measurementElevat ed PSA 4 Willy De La Cruz. [address], [address], [place], [place], [address], [place]. tel:[phone] Referring Provider: Fish bravo, [address], [place], [address] . tel:[phone] [facility], [address], [place], [place], [address] , [place] [phone] [facility] Dizziness 4 Delbert Payne. [facility], [place], [place], [address], [place]. tel:[phone] [facility], [address], [place], [place], [address] , [place] [phone] [facility] Other fatigue 4 Delbert Payne. [address], [address], [place], [place], [address], [place]. tel:[phone] [facility], [address], [place], [place], [address] , tel: [phone] [facility] Dizziness 4 Delbert Payne. [address] [place] [address], [address] [address], [place], [place], [address], [place]. [phone] OFFICE VUZPV-QQO-HM PANDED [facility], [address], [place], [place], [address] , tel: [phone] [facility] acute visit (chief complaint) Body mass index [BMI] 26.0-26.9, adultLeft eyelid laceration, initial encounter 3 Jina Jackson. [address] [place] [address], [address] [facility], [place], [place], [address], [place]. tel:[phone] Referring Provider: Elmer Mandujano , [address] [place] [address], [place], [address] . tel:[phone] [facility], [address], [place], [place], [address] , [place] tel: [phone] [facility] Dizziness 3 Delbert Payne. [address] [place] [address], [place] [address], [place], [place], [address], [place]. [phone] OFFICE JOROA-KNW-QI TAILED [facility], [address], [place], [place], [address] , tel: [phone] [facility] spells (chief complaint)f adam infection (chief complaint) Body mass index [BMI] 26.0-26.9, adultDizzinessInj ury of finger of right hand, initial encounterEncounte r for screening for malignant neoplasm of prostateMetal foreign body in finger 3 Delbert Payne. [address] [place] [address], [place] [address], [place], [place], [address], [place]. tel:[phone] Referring Provider: Elmer Mandujano , [address] [place] [address], [place], [address] . tel:[phone] OFFICE XGXMH-ZYU-AS TAILED [facility], [address], [place], [place], [address] , tel:[phone] [facility] Patient encounter (chief complaint) DizzinessBody mass index [BMI] 26.0-26.9, adultEncounter for screening for malignant neoplasm of prostate 3 Delbert Payne. [address] [place] [address], [address], [place], [place], [address], . tel:[phone] Referring Provider: Elmer Mandujano , [address] [place] [address] Suite [facility], [place], [address] . tel:[phone] OFFICE WZJGN-EGH-JI PANDKURT [employer], [address], [place], [place], [address] , tel:[phone] [facility] Patient encounter (chief complaint) Mild anemiaHand arthritisBody mass index [BMI] 25.0-25.9, adult 2 Delbert Payne. [address] [place] [address], [address] [facility], [place], [place], [address], [place]. tel:[phone] Referring Provider: Elmer Mandujano , [address] [place] [address], [place], [address] . tel:[phone] [facility], [address], [place], [place], [address] , tel:[phone] [facility] Cough in adult 2 Delbert Payne. [facility] [address], [place], [place], [address], [place]. tel:[phone] [facility], [address], [place], [place], [address] , tel:[phone] [facility] Medicare preventive (chief complaint) Encounter for general adult medical examination without abnormal findingsBody mass index [BMI] 24.0-24.9, adultEncounter for immunizationEncou nter for lipid screening for cardiovascular diseaseOsteoarthr itis of knee, unspecifiedEncoun ter for screening for malignant neoplasm of prostate 1 Delbert Payne. [address] [place] [address], [place] [address], [place], [place], [address], . tel:[phone] Referring Provider: Elmer Mandujano , [address] [place] [address], [place], [address] . tel:[phone] OFFICE GJBRB-ONX-DB PANDED [facility], [address], [place], [place], [address] , tel:[phone] [facility] follow up (chief complaint)m usculoskele gurmeet pain (chief complaint)C hronic Conditions (chief complaint) Body mass index (BMI) 25.0-25.9, adultLeft knee pain, unspecified chronicityHeredit lauro and idiopathic neuropathy, unspecifiedOsteoa rthritis of knee, unspecified 1 Delbert Payne. [address] [place] [address], [place], [place], [address], . tel:[phone] Referring Provider: Elmer Mandujano , [address] [place] [address], [place], [address] . tel:[phone] [facility], [address], [place], [place], [address] , tel:[phone] [facility] Left knee pain, unspecified chronicity 1 Delbert Payne. [address] [place] [address], [place], [place], [address], . tel:[phone] [facility], [address], [place], [place], [address] , tel:[phone] [facility] Medicare preventive (chief complaint) Encounter for general adult medical examination without abnormal findingsBenign prostatic hyperplasia with weak urinary streamDiverticuli tisEncounter for immunizationEncou nter for lipid screening for cardiovascular disease 0 Delbert Payne. [address] [place] [address], [place], [place], [address], . tel:[phone] Referring Provider: Elmer Mandujano , [address] [place] [address] [address], [place], [address] . tel:[phone] [facility], [address], [place], [place], [address] , tel: [phone] [facility] Foreign body in ear, unspecified laterality, initial encounter 0 Delbert Payne. [address] [place] [address], [facility] [address], [place], [place], [address], [place]. tel:[phone] OFFICE KIDZW-TMI-YI [facility], [address], [place], [place], [address] , [place] tel: [phone] [facility] acute visit (chief complaint)robert liriano gurmeet pain (chief complaint) Injury of left foot, initial encounter 9 Delbert Payne. [address] [place] [address], [place] [address], [place], [place], [address], [place]. tel:[phone] Referring Provider: Elmer Mandujano , [address] [place] [address], [place], [address] . tel:[phone] [employer], [address], [place], [place], [address] , tel: [phone] [facility] Medicare preventive (chief complaint) Encounter for general adult medical examination without abnormal findingsAllergic rhinitis, unspecified seasonality, unspecified triggerBenign prostatic hyperplasia with weak urinary streamNeuropathyE rectile dysfunction, unspecified erectile dysfunction typeEncounter for lipid screening for cardiovascular diseaseImmunizati on counseling 9 Delbert Payne. [address] [place] [address], [place] [address], [place], [place], [address], [place]. tel:[phone] Referring Provider: Elmer Mandujano , [address] [place] [address], [place], [address] . tel:[phone] [facility], [address], [place], [place], [address] , tel: [phone] [facility] Diverticulitis large intestineLeft shoulder pain 5 Delbert Payne. [address] [place] [address], [place], [place], [address], [place]. tel:[phone] Referring Provider: Elmer Mandujano , [address] [place] [address], [place], [address] . tel:[phone] [facility], [address], [place], [place], [address] , tel: [phone] [facility] ROUTINE MEDICAL EXAMChest discomfortOther and unspecified hyperlipidemiaNEE D FOR PROPHYLACTIC VACCINATION AND INOCULATION, OTHER VIRAL DISEASES 5 Delbert Payne. [address] [place] [address], [place], [place], [address], [place]. tel:[phone] Referring Provider: Elmer Mandujano , [address] [place] [address], [place], [address] . tel:[phone] [facility], [address], [place], [place], [address] , [place] tel: [phone] [facility] Other and unspecified hyperlipidemia 5 Delbert Payne. [address] [place] [address], [place], [place], [address], [place]. tel:[phone] [facility], [address], [place], [place], [address] , tel: [phone] [facility] Other and unspecified hyperlipidemia 4 Delbert Payne. [address] [place] [address], [place] [address], [place], [place], [address], [place]. tel:[phone] [facility], [address], [place], [place], [address] , [place] tel: [phone] [facility] Backache, unspecifiedOther and unspecified hyperlipidemiaMaj or depressive affective disorder, recurrent episode, moderate degreeALLERGIC RHINITIS NOSInguinal hernia, right 0 3 Estevan Hartley. [address] [place] [address], [place], [place], [address], [place]. tel:[phone] Referring Provider: Elmer Mandujano , [address] [place] [address], [place], [address] . tel:[phone] [facility], [address], [place], [place], [address] , [place] tel:[phone] [facility] Abdominal pain, acute, generalizedLeft wrist painGroin swelling 2 Nino Crisostomo. [address] [place] [address], [place], [place], [address], [place]. tel:[phone] Referring Provider: Elmer Mandujano , [address] [place] [address], [place], [address] . tel:[phone] [facility], [address], [place], [place], [address] , [place] tel: [phone] [facility] AnxietyPalpitatio nsOther and unspecified hyperlipidemia 2 Damion Hilliard. [address] [place] [address], [place], [address]. tel:[phone] Referring Provider: Elmer Mandujano , [address] [place] [address], [place], [address] . tel:[phone] [facility], [address], [place], [place], [address] , [place] tel:[phone] [facility] Pain in joint involving multiple sitesNeuralgia, neuritis, and radiculitis, unspecified 1 Arsen Curtis. [address] [facility], [place], [place], [address]. tel:[phone] Referring Provider: Elmer Mandujano , [address] [place] [address], [place], [address] . tel:[phone] [facility], [address], [place], [place], [address] , [place] tel: [phone] [facility] Routine general medical examination at a health care facilityOther and unspecified hyperlipidemiaRou dedrick general medical examination at a health care facilityNEED FOR PROPHYLACTIC VACCINATION WITH COMBINED DIPHTHERIA-TETANU S-PERTUSSIS (DTP) (DTAP) VACCINE 0-201 1 Delbert Payne. [address] [place] [address], [place], [place], [address], [place]. tel:[phone] Referring Provider: Elmer Mandujano , [address] [place] [address], [place], [address] . tel:[phone] [facility], [address], [place], [place], [address] , [place] tel: [phone] [facility] RECURR DEPR PSYCHOS-MODHYPERL IPIDEMIA NEC/NOS 0 Delbert Payne. [address] [place] [address], [place], [place], [address], [place]. tel:[phone] [facility], [address], [place], [place], [address] , [place] tel: [phone] [facility] DIARRHEA OF INFECT ORIG 8200 9 Delbert Payne. [address] [place] [address], [place], [place], [address], [place]. tel:[phone] [facility], [address], [place], [place], [address] , [place] tel: [phone] [facility] ANEMIA NOSMALAISE AND FATIGUE NEC 8200 9 Delbert Payne. [address] [place] [address], [place], [place], [address], [place]. tel:[phone] [facility], [address], [place], [place], [address] , [place] tel: [phone] [facility] BACKACHE NOSDEPRESS PSYCHOSIS-UNSPECJ OINT PAIN-L/LEGACUTE URI NOS 2-200 8 Delbert Payne. [address] [place] [address], [place], [place], [address], [place]. tel:[phone] [facility], [address], [place], [place], [address] , [place] tel: [phone] [facility] SCRN MALIG NEOP-PROSTATE May-0 5-200 8 Delbert Payne. [facility], [place], [place], [address], [place]. tel:[phone] [facility], [address], [place], [place], [address] , [place] tel: [phone] [facility] CHEST PAIN NEC 7-200 7 Delbert Payne. [address], [place], [place], [address], [place]. tel:[phone] [facility], [address], [place], [place], [address] , [place] tel: [phone] [facility] CALCULUS OF KIDNEY 6-200 6 Delbert Payne. [address] [place] [address], [place] [address], [place], [place], [address], [place]. tel:[phone] [facility], [address], [place], [place], [address] , [place] tel: [phone] [facility] PALPITATIONS 0-200 6 Delbert Payne. [address] [place] [address], [facility] [address], [place], [place], [address], [place]. tel:[phone] [facility], [address], [place], [place], [address] , [place] tel: [phone] [facility] ATTN DRESSNG/SUTUR 2-200 5 Delbert Payne. [facility], [facility] [address], [place], [place], [address], [place]. tel:[phone] [facility], [address], [place], [place], [address] , [place] tel: [phone] [facility] OPEN WOUND ARM NOS-COMPL 2-200 5 Arsen Kirsten. [address] [facility], [place], [place], [address]. tel:[phone] [facility], [address], [place], [place], [address] , [place] tel: [phone] [facility] CALCULUS OF URETER 5 Delbert Payne. [address], [facility], [place], [place], [address], [place]. tel:[phone] [facility], [address], [place], [place], [address] , [place] tel: [phone] [facility] ALLERGIC RHINITIS NOS May- 5200 4 Delbert Payne. [address], [place] [address], [place], [place], [address], [place]. tel:[phone] [facility], [address], [place], [place], [address] , [place] tel: [phone] [facility] ROUTINE MEDICAL EXAM 4 Delbert Payne. [address], [place] [address], [place], [place], [address], [place]. tel:[phone] [facility], [address], [place], [place], [address] , [place] tel: [phone] [facility] LIPOMA NEC 3 Arsen Kirsten. [address] [facility], [place], [place], [address]. tel:[phone] [facility], [address], [place], [place], [address] , [place] tel: [phone] [facility] ABDMNAL PAIN UNSPCF SITE 1 Aquiles Clarke. [address], [facility], [place], [place], [address]. tel:[phone] Family History Family Member Type Diagnosis Age At Onset Father Problem (finding) alzheimer's disease 80 Immunizations Vaccine Date Status Comments Flublok, quadrivalent, preservative free, 0.5mL dosage administered Source: New Immunization Record [place] COVID19 Vaccine, 0.3mL per dose, 2 doses, administered 21 days apart administered Source: Other Aristides garcia [place]) COVID19 Vaccine, 0.3mL per [...] Record Payers Payer name Insurance type Covered republican ID Authoriza tion(s) [employer] MB [id number] [employer] MB [id number] MEDICARE MB [id number] [employer] NAP CI [id number] MEDICARE MB [id number] [employer] NAP CI [id number] [facility] CI [id number] Social History Type Description Quantity Date Captured [...] completed Referral [place]: [place] [address] [address], [phone] Ordered: Referrals: *[facility]. Sreekanth Spivey MD. Evaluation/diagnostic/treatment - Level 3 ordered Referral Referred To: Aura Morris Ordered: Referrals: Audiology. Aura Morris. Location: [facility]. Evaluation/diagnostic/treatment - Level 3 Appointment date/timeframe: 01/06/2024 ordered Referral Referred To: Physical Therapy Ordered: Referrals: Physical Therapy. Location: [facility]. Evaluation/diagnostic/treatment - Level 3 ordered Referral Referred To: Fish Multani MD [address] [facility]
[address] [place], [phone] Ordered: Referrals: Otolaryngology. Fish Multani MD. Evaluation/diagnostic/treatment - Level 3 ordered Referral Ordered: XR finger right, 3 views Right 5th finger Appointment date/timeframe: Today ordered Referral Referred To: Esmer Stringer [facility]
[address] [place], [phone] Ordered: Referrals: Hand surgery. Esmer Stringer. Evaluation/diagnostic/treatment - Level 3 Appointment date/timeframe: 01/19/2023 ordered Referral Ordered: MRI brain and brain stem wo contrast Appointment date/timeframe: 2 Weeks ordered Referral Referred To: Axel Angeles MD [address] [place], [phone] Ordered: Referrals: Orthopedic Surgery. Axel Angeles MD. Evaluation/diagnostic/treatment - Level 3 Appointment date/timeframe: 08/24/2020 ordered Referral Referred To: Arthur Lee MD [address] [facility]
[address] [place], [phone] Ordered: Referrals: Otolaryngology. Arthur Lee MD. Evaluation/diagnostic/treatment - Level 3 Appointment date/timeframe: 08/21/2019 ordered Referral Ordered: Radiologic examination, foot; complete, minimum of 3 views Left foot ordered Patient Education Keila Maneuver at Home for Vertigo: Exercises completed Patient Education Iliotibial Ban d Syndrome: Exercises completed Patient Education Rotator Cuff: Exercises completed Future Order: Lab Order PSA ([id number]), Collected on: , Sent on: Sent Future Order: Radiology Order Ra diologic examination, foot; complete, minimum of 3 views Left foot ([id number]), Body Site: foot, Sent on: Sent History [...] and vestibular issues. The patient works in [employer] and this past January he had fever, [...] for his peripheral neuropathy.He is established with machine pie maker for vestibular therapy for aural. Vertigo.Shortness of breath- Experienced shortness of breath with activity and moving heavy tree limbs while at [employer]. Palpitations that comes and goes. It feels like a strong beat. Long COVID? - Dizziness, and feeling off, he feels a disconnected in brain. In the past 3-4 months, not emptying the bladder. He notes that he has not noticed his sildenafil as effective as before. The patient lives an active lifestyle. 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 acute visit Chief complaint: laceration. Symptoms started [...] to Malignant neoplasm of prostate Related to Hellier orlin PSA I recommend we proce ed [...] discussed the ane karla discovered by the [place]. I ordered blood test for blood cell [...] al lergic rhinitis and possible treatments including bjbe-xog-gojaiec antihistamines and nlwj-bye-fsordyy nasal steroids. Related to Allergic rhinitis, unspecified [...]
--- OUTSIDE RECORDS SUMMARY | 2024-05-15 16:30 | XMS_ITS | Encounter Summary ---
Author Organization [facility] Address [address] [place] [address] Care Team Providers Care Molding Cutter Name Role Phone Elmer Mandujano MD Primary Care Provider + Nataliia Thomas RN Unavailable [phone] Elmer Mandujano MD Primary Care Provider + Fish Aguilera MD Primary Care Provider [phone] Encounter Details Date Type Department Care Team (Late st Contact Info) Description 05/11/2018 Lab Requisition [facility] Care DermPath Lab [address] [facility], [facility] [place] [address] Brina Franco DO [address] [facility] 3 [place] [address] Social History Tobacco Use Types Packs/Day Years [...] Description 10/08/2024 11:00 AM CDT Office Visit [facility] [address] [place] [address] Sanchez Becerril MD [address] [place] [address] documented as of this encounter Procedures Procedure Name Priority Date/Time Associated Diagnosis Comments DERMATOPATH TECHNICAL REPORT Routine 05/10/2018 12:00 AM RESEARCH TECHNICIAN documented in this encounter Results * DERMATOPATH TECHNICAL REPORT (05/10/2018 12:00 AM RESEARCH TECHNICIAN) Case Report Dermatopathology Report Case: [id number] Authorizing Provider: Brina Franco DO Collected: 05/10/2018 12:00 AM Pathologist: Maria Elena Chan MD Received: 05/11/2018 06:27 AM Specimen: Skin, right post shoulder 9 11:[address] [facility] DERMATOPATHOLOGY LABORATORY Clinical History Crusted pink papule. ISK R/O SCC non-healing. 9 11:[address] [facility] DERMATOPATHOLOGY LABORATORY Gross Description Specimen A: Received is one formalin filled container labeled with the patient's name and designated right post shoulder. The specimen consists of a shave measuring [id number]. Jar 0. [facility] Dermatopathology Laboratory performed the technical component only. 9 11:[address] [facility] DERMATOPATHOLOGY LABORATORY Embedded Images 11:[address] [facility] DERMATOPATHOLOGY LABORATORY DISCLAIMER An external and internal positive and negative controls are appropriate for the histochemical, immunohistochemical and immunofluorescence stain(s) in this case (if any), except where stated explicitly. The performance characteristics of the stain(s) cited in this report were developed and its performance characteristic determined by the Dermatopathology Laboratory at [facility], directed by Dr. Jessika Andrade. These tests need not be, and therefore are not, approved by the [place] Food and Drug Administration. The tests are used for clinical purposes. 9 11:13 AM RESEARCH TECHNICIAN DERMATOPATHOLOGY LABORATORY Pathology/Cytolog y TISSUE SPECIMEN FROM SKIN / Unknown 05/10/2018 05/11/2018 6:27 AM RESEARCH TECHNICIAN Brina Franco DO LAB - PATHOLOGY/C YTOLOGY ORDERABLES DERMATOPATHOLOGY LABORATORY [facility] - Department of Dermatology [address] [facility], 5th Floor Lab [address] [phone] documented in this encounter Visit Diagnoses Not on filedocumented in this encounter Care Teams Molding Cutter Relationship Specialty Start Date End Date Elmer Mandujano MD [address] [place] [phone] PCP - General Internal Medicine 09/05/12 01/15/23 Elmer Mandujano MD [address] [place] [address] [place] [phone] PCP - General Internal Medicine 01/16/23 03/28/24 Fihs Aguilera MD [facility] [address] [place], [place] [id number] PCP - General Internal Medicine 03/29/24 Nataliia Thomas RN Safety Deposit Clerk 08/25/14 documented as of this encounter
--- OUTSIDE RECORDS SUMMARY | 2024-05-15 16:30 | XMS_ITS | Clinical Summary ---
Author Organization [facility] Address [address] [facility] [place] [address] Care Team Providers Care Caramel Cutter Hand Name Role Phone Nataliia Thomas RN Unavailable [phone] Fish Aguilera MD Primary Care Provider [phone] Source Comments [facility],non-owned Affiliates and Associated Physician Practices is amultiple site organization consisting of ambulatory clinics and hospital sitesin [place], [place] and [place]. This disclosure is being madepursuant to the Care Everywhere program and may not contain all information available regarding this patient. Last updated 17.[facility] Allergies No known active [...] Department Care Team Description 04/01/2024 3:00 PM LEAD PASTOR Office Visit [facility] Neurosciences [address] [facility] [address] [place] [address] Sanchez Becerril MD Vestibular migraine (Primary Dx); Ocular migraine; Mild cerebral atrophy (HCC); RBD (REM behavioral disorder); Idiopathic peripheral neuropathy 02/13/2024 10:00 AM LEAD PASTOR - 02/13/2024 11:59 PM LEAD PASTOR Hospital Encounter [facility] [address], [address] [place] [address] Sanchez Becerril MD Discharge Disposition: Home or [...] Comments Blood Pressure 120/74 04/01/2024 3:02 PM LEAD PASTOR Pulse 73 04/01/2024 3:02 PM LEAD PASTOR Temperature 36.6 C (97.9 F) 08/01/2016 12:01 PM CDT Respiratory Rate 16 08/01/2016 12:01 PM CDT Oxygen Saturation 99% 08/01/2016 12:01 PM CDT Inhaled Oxygen Concentration - - Weight 78.9 kg (174 lb) 04/01/2024 3:02 PM LEAD PASTOR Height 167.6 cm (5' 6 ) 04/01/2024 3:02 PM LEAD PASTOR Body Mass Index 28.08 04/01/2024 3:02 PM LEAD PASTOR Plan of Treatment Upcoming Encounters Date Type Department Care Team (Late st Contact Info) Description 10/08/2024 11:00 AM CDT Office Visit [facility] [address] [place] [address] Sanchez Becerril MD [address] [place] [address] Health Maintenance Due Date Last [...] this topic Medical Devices Implanted Type Area Veneer Patcher Device Identifier Shelf Expiration Date Model / Serial / Lot Mesh Implanted:Qty: 1 on 10/16/2012 by Shiv Lowe MD at [facility] [employer] 04/19/2017 [facility] / / [id number] Description:extended Procedures Procedure Name Priority Date/Time Associated Diagnosis Comments EMG WITH NERVE CONDUCTION STUDY Routine 02/13/2024 1:30 PM LEAD PASTOR Balance problem COMPREHENSIVE METABOLIC PANEL STAT 07/29/2016 4:10 PM CDT from Last 3 Months or Most Recently Relevant to Health Maintenance Results * EMG WITH NERVE CONDUCTION STUDY (02/13/2024 1:30 PM LEAD PASTOR) Narrative Sanchez Becerril MD - 02/13/2024 1:30 PM [facility] Sanchez Becerril MD 02/13/2024 1:33 PM [facility] [address] [place] [address], [address] [place], [place] [phone] Patient: Jono Nova V #: Physician: Sanchez Becerril MD Sex: Male ID#: [id number] Ref Phys: Sanchez Becerril MD. : 1955 Date: 02/13/2024 Railway Station Manager: Odilia Fraser Patient Complaints: The patient is [...] Please correlate clinically Sanchez Becerril MD Diplomate, [place] [employer] and Neu[employer] Board Certified [...] COMPREHENSIVE METABOLIC PANEL (07/29/2016 4:10 PM CDT) [facility] Glucose 99 74 - 106 mg/dL 07/29/2016 4:41 PM CDT [facility] Sodium 143 136 - 145 mmol/L 07/29/2016 4:41 PM CDT [facility] Potassium 4.1 3.5 - 5.1 mmol/L 07/29/2016 4:41 PM CDT [facility] Chloride 109(H) 98 - 107 mmol/L 07/29/2016 4:41 PM [facility] CO2 28 22 - 31 mmol/L 07/29/2016 4:41 PM CDT [facility] Calcium 8.6 8.5 - 10.1 mg/dL 07/29/2016 4:41 PM [facility] Anion Gap 6(L) 8 - 16 mmol/L 07/29/2016 4:41 PM T [facility] BUN 21 7 - 21 mg/dL 07/29/2016 4:41 PM [facility] Creatinine 1.08 0.50 - 1.30 mg/dL 07/29/2016 4:41 PM [facility] Alkaline Phosphatase 67 38 - 126 U/L 07/29/2016 4:41 PM [facility] ALT 23 13 - 61 U/L 07/29/2016 4:41 PM [facility] AST 14 5 - 40 U/L 07/29/2016 4:41 PM [facility] Protein Total 6.3(L) 6.4 - 8.2 gm/dL 07/29/2016 4:41 PM [facility] Albumin 3.9 3.4 - 5.0 gm/dL 07/29/2016 4:41 PM [facility] Bilirubin Total 0.4 0.2 - 1.0 mg/dL 07/29/2016 4:41 PM [facility] eGFR by MDRD >60 >60 mL/min/1.7 3m2 07/29/2016 4:41 PM [facility] eGFR by MDRD >60 >60 mL/min/1.7 3m2 07/29/2016 4:41 PM [facility] Blood BLOOD SPECIMEN / Unknown 07/29/2016 4:10 PM CDT 07/29/2016 4:17 PM T Jona Lizama MD LAB - CHEMISTRY ORD ERABLES [facility] [address] [id number] from Last 3 Months or Most Recently [...] 9:35 PM 08/27/2014 9:57 AM Care Teams Caramel Cutter Hand Relationship Specialty Start Date End Date Fish Aguilera MD [address] [address] PCP - General Internal Medicine 03/29/24 Nataliia Thomas, RN Transit Mixer Operator 08/25/14
--- OUTSIDE RECORDS SUMMARY | 2024-05-15 16:30 | XMS_ITS | Clinical Summary ---
Author Organization [facility] Address [address] [place] [address] Care Team Providers Care Manager Site Name Role Phone Elmer Mandujano MD Primary Care Provider [phone] Allergies No known active allergies Medications sildenafil [...] CDT Gender Identity Male 05/14/2021 8:47 AM ECHO VASC TECH Sexual Orientation Straight 05/14/2021 8: 47 AM ECHO VASC TECH Last Filed Vital Signs Vital Sign Reading [...] complete this topic Insurance [employer] Care Teams Manager Site Relationship Specialty Start Date End Date Elmer Mandujano MD [address] [place] [id number] PCP - General INTERNAL MEDICINE 07/31/20
--- OUTSIDE RECORDS SUMMARY | 2024-05-15 16:30 | XMS_ITS | Clinical Summary ---
Author Organization [facility] Address [address] [place] [address] Care Team Providers Care Bacon Slicer Name Role Phone Jona Wall MD Primary Care Provider [phone] Allergies No known active allergies Medications No known medications Social History Tobacco Use Types Packs/Day Years Used Date Smoking Tobacco: Never Sex and Gender Information Value Date Recorded Sex Assigned at Not on file Legal Sex Male 4:54 AM PRESS SERVICE READER Gender Identity Not on file Sexual Orientation [...] (1 - 1-dose 75+ series) 2028 Insurance [facility] [id number] Care Teams Bacon Slicer Relationship Specialty Start Date End Date Jona Wall MD [address] [phone] PCP - General 09/06/04
--- OUTSIDE RECORDS SUMMARY | 2024-05-15 16:30 | XMS_ITS | Referral Summary ---
Author Organization [facility] Address [address] [place] [address] Care Team Providers Care Windows Vmware Administrator Name Role Phone Nataliia Thomas RN Unavailable Fish Aguilera MD Primary Care Provider [phone] Source Comments [facility],non-owned Affiliates and Associated Physician Practices is amultiple site organization consisting of ambulatory clinics and hospital sitesin [place], [place], [place] and [place]. This disclosure is being madepursuant to the Care Everywhere program and may not contain all information available regarding this patient. Last updated 17.[facility] Encounters Date Type Department Care Team Description 04/01/2024 3:00 PM ASSEMBLY MACHINE TENDER Office Visit [facility] [address] [facility] [address] [place] [id number] Sanchez Becerril MD Vestibular migraine (Primary Dx); Ocular migraine; Mild cerebral atrophy (HCC); RBD (REM behavioral disorder); Idiopathic peripheral neuropathy 02/13/2024 10:00 AM ASSEMBLY MACHINE TENDER - 02/13/2024 11:59 PM ASSEMBLY MACHINE TENDER Hospital Encounter [facility] [address], [address] [place] [address] Sanchez Becerril MD Discharge Disposition: Home or [...] Comments Blood Pressure 120/74 04/01/2024 3:02 PM ASSEMBLY MACHINE TENDER Pulse 73 04/01/2024 3:02 PM ASSEMBLY MACHINE TENDER Temperature 36.6 C (97.9 F) 08/01/2016 12:01 PM CDT Respiratory Rate 16 08/01/2016 12:01 PM CDT Oxygen Saturation 99% 08/01/2016 12:01 PM CDT Inhaled Oxygen Concentration - - Weight 78.9 kg (174 lb) 04/01/2024 3:02 PM ASSEMBLY MACHINE TENDER Height 167.6 cm (5' 6 ) 04/01/2024 3:02 PM ASSEMBLY MACHINE TENDER Body Mass Index 28.08 04/01/2024 3:02 PM ASSEMBLY MACHINE TENDER Functional Status Functional Status Response Date of [...] Description 10/08/2024 11:00 AM CDT Office Visit [address] [address] Sanchez Becerril MD [address] [place] [phone] Medical Devices Implanted Type Area Segment Assembler Device Identifier Shelf Expiration Date Model / Serial / Lot Mesh Implanted:Qty: 1 on 10/16/2012 by Shiv Lowe MD at [facility] [employer] 04/19/2017 [facility] / / [id number] Description:extended Procedures Procedure Name Priority Date/Time Associated Diagnosis Comments EMG WITH NERVE CONDUCTION STUDY Routine 02/13/2024 1:30 PM ASSEMBLY MACHINE TENDER Balance problem COMPREHENSIVE METABOLIC PANEL STAT 07/29/2016 4:10 PM CDT from Last 3 Months or Most Recently Relevant to Health Maintenance Results * EMG WITH NERVE CONDUCTION STUDY (02/13/2024 1:30 PM ASSEMBLY MACHINE TENDER) Narrative Sanchez Becerril MD - 02/13/2024 1:30 PM ASSEMBLY MACHINE TENDER Sanchez Becerril MD 02/13/2024 1:33 PM [facility] [address] [place] [address], [address] [phone] Patient: Jono Nova V #: Physician: Sanchez Becerril MD Sex: Male ID#: [id number] Ref Phys: Sanchez Becerril MD. : 1955 Date: 02/13/2024 Transmission Technician: Odilia Fraser Patient Complaints: The patient is [...] Please correlate clinically Sanchez Becerril MD Diplomate, [place] [employer]iat[employer] and Neurology Board Certified [...] COMPREHENSIVE METABOLIC PANEL (07/29/2016 4:10 PM CDT) [facility] Glucose 99 74 - 106 mg/dL 07/29/2016 4:41 PM [facility] Sodium 143 136 - 145 mmol/L 07/29/2016 4:41 PM [facility] Potassium 4.1 3.5 - 5.1 mmol/L 07/29/2016 4:41 PM [facility] Chloride 109(H) 98 - 107 mmol/L 07/29/2016 4:41 PM [facility] CO2 28 22 - 31 mmol/L 07/29/2016 4:41 PM [facility] Calcium 8.6 8.5 - 10.1 mg/dL 07/29/2016 4:41 PM [facility] Anion Gap 6(L) 8 - 16 mmol/L 07/29/2016 4:41 PM [facility] BUN 21 7 - 21 mg/dL 07/29/2016 4:41 PM [facility] Creatinine 1.08 0.50 - 1.30 mg/dL 07/29/2016 4:41 PM [facility] Alkaline Phosphatase 67 38 - 126 U/L 07/29/2016 4:41 PM [facility] ALT 23 13 - 61 U/L 07/29/2016 4:41 PM [facility] AST 14 5 - 40 U/L 07/29/2016 4:41 PM [facility] Protein Total 6.3(L) 6.4 - 8.2 gm/dL 07/29/2016 4:41 PM [facility] Albumin 3.9 3.4 - 5.0 gm/dL 07/29/2016 4:41 PM CDT [facility] Bilirubin Total 0.4 0.2 - 1.0 mg/dL 07/29/2016 4:41 PM CDT [facility] eGFR by MDRD >60 >60 mL/min/1.7 3m2 07/29/2016 4:41 PM CDT [facility] eGFR by MDRD >60 >60 mL/min/1.7 3m2 07/29/2016 4:41 PM CDT [facility] Blood BLOOD SPECIMEN / Unknown 07/29/2016 4:10 PM CDT 07/29/2016 4:17 PM CDT Jona Lizama MD LAB - CHEMISTRY ORD ERABLES [facility] [address] [id number] from Last 3 Months or Most Recently [...] 9:35 PM 08/27/2014 9:57 AM Care Teams Windows Vmware Administrator Relationship Specialty Start Date End [place] [address] PCP - General Internal Medicine 03/29/24 Nataliia Thomas, RN Boarding House Cook 08/25/14
--- OUTSIDE RECORDS SUMMARY | 2024-05-15 16:30 | XMS_ITS | Clinical Summary ---
Author Organization [facility] [address] Address [address] [place] [address] Care Team Providers Care Livestock Dealer Name Role Phone Elmer Mandujano MD Primary [...] 04/10/2017 Assessment & Plan (04/10/2017 10:27 AM PORTRAIT PHOTOGRAPHER): Suspected as a spasm versus small vessel [...] on file Legal Sex Male 7:33 PM PORTRAIT PHOTOGRAPHER Gender Identity Not on file Sexual Orientation Not on file Obstetrics History Last Filed Vital Signs Vital Sign Reading Time Taken Comments Blood Pressure 120/72 04/10/2017 8:31 AM PORTRAIT PHOTOGRAPHER Pulse 65 04/10/2017 8:31 AM PORTRAIT PHOTOGRAPHER Temperature - - Respiratory Rate - - Oxygen Saturation 97% 04/10/2017 8:31 AM PORTRAIT PHOTOGRAPHER Inhaled Oxygen Concentration - - Weight 76.2 kg (168 lb) 04/10/2017 8:31 AM PORTRAIT PHOTOGRAPHER Height 167.6 cm (5' 6 ) 04/10/2017 8:31 AM PORTRAIT PHOTOGRAPHER Body Mass Index 27.12 04/10/2017 8:31 AM PORTRAIT PHOTOGRAPHER Plan of Treatment Health Maintenance Due Date [...] 12/14/2018, 04/2018, 09/25/2018, Additional history exists Insurance [facility] Address: [address] [address] [place] [address] [facility] Care Teams Livestock Dealer Relationship Specialty Start Date End Date Elmer Mandujano MD PCP - General Internal Medicine 03/02/17
--- OUTSIDE RECORDS SUMMARY | 2024-05-15 16:30 | XMS_ITS | Encounter Summary ---
Author Organization [facility] Address [address] [place] [address] Care Team Providers Care Pulpit Operator Name Role Phone Jona Wall MD Primary Care Provider Encounter Details Date Type Department Care Team (Late st Contact Info) Description 10/08/2004 Outpatient Historical [facility] Jona Wall MD [address] [facility] [address] [facility] [address] [place] [address] Social History Tobacco Use Types Packs/Day Years Used Date Smoking Tobacco: Never Assessed Sex and Gender Information Value Date Recorded Sex Assigned at Not on file Legal Sex Male 4:54 AM CRANE OILER Gender Identity Not on file Sexual Orientation Not on file documented as of this encounter Plan of Treatment Not on file documented as of this encounter Visit Diagnoses Not on filedocumented in this encounter Care Teams Pulpit Operator Relationship Specialty Start Date End Date Jona Wall MD [address] [facility] [address] [place] [address] PCP - General 09/06/04 documented as of this encounter
--- OUTSIDE RECORDS SUMMARY | 2024-05-15 16:30 | XMS_ITS | Referral Summary ---
Author Organization [facility] [address] Address [address] [place] [address] Care Team Providers Care Cashier Clerk Name Role Phone Elmer Mandujano MD [...] 04/10/2017 Assessment & Plan (04/10/2017 10:27 AM NURSES' ASSOCIATION COUNSELOR): Suspected as a spasm versus small vessel [...] on file Legal Sex Male 7:33 PM NURSES' ASSOCIATION COUNSELOR Gender Identity Not on file Sexual Orientation Not on file Last Filed Vital Signs Vital Sign Reading Time Taken Comments Blood Pressure 120/72 04/10/2017 8:31 AM NURSES' ASSOCIATION COUNSELOR Pulse 65 04/10/2017 8:31 AM NURSES' ASSOCIATION COUNSELOR Temperature - - Respiratory Rate - - Oxygen Saturation 97% 04/10/2017 8:31 AM NURSES' ASSOCIATION COUNSELOR Inhaled Oxygen Concentration - - Weight 76.2 kg (168 lb) 04/10/2017 8:31 AM NURSES' ASSOCIATION COUNSELOR Height 167.6 cm (5' 6 ) 04/10/2017 8:31 AM NURSES' ASSOCIATION COUNSELOR Body Mass Index 27.12 04/10/2017 8:31 AM NURSES' ASSOCIATION COUNSELOR Plan of Treatment Not on file Insurance [facility]/PPO Address: [address] [address] [place] [address] [facility] Care Teams Cashier Clerk Relationship Specialty Start Date End Date Elmer Mandujano MD PCP - General Internal Medicine 03/02/17
[2024-05-15 16:36] LABS: Troponin I 0.017 ng/mL (0.000-0.034)
--- NOTE | 2024-05-15 17:42 | P.HP_ITS ---
H&P: [facility] History of Present Illness Date/Time: 05/15/24 17:42 Chief Complaint: Chest Pain Narrative: 69 y/o M presents here with chest pain with PMH of BPH and prostate cancer. The patient presents here from home for further evaluation of exertional chest pain. He reports the chest pain started this morning (approximately 1 hour prior to arrival) while he was walking up a hill. He describes the chest pain as midsternal, achy, heaviness, radiation into his bilateral shoulders, between shoulder blades, and bilateral jaw, constant, aggravated by exertion, and alleviated by morphine/SL nitro. Chest pain lasted for approximately 6 hrs. The patient did take two 81 mg aspirin after onset without relief. Accompanied by a front headache, migrated posteriorly, and now resolved. He denies shortness of breath, nausea, vomiting, palpitations, fatigue, or syncope/lightheadedness. He has previously underwent a cardiac catheterization in 2019 with no abnormality seen. Denies any further cardiac history. The patient also notes that he was under increased stress today. He was recently diagnosed with aggressive prostate cancer and had appointment set up for today to developed/discuss a plan of care moving forward. Believes this may have caused increased stress for him today. Initial VS at presentation: 97.8? F, HR 88, RR 20, 156/83, and 100% on RA. ED workup showed: No leukocytosis, no anemia, normal coags, creatinine 0.99 and GFR >60, glucose 113, initial troponin negative. CXR showed no acute cardiopulmonary disease. EKG showed sinus rhythm, rate 83, possible inferior HI probably old, baseline artifact. Review of Systems Review of Systems: All systems reviewed & are unremarkable except as noted in HPI and below [facility] Past Medical History Medical History (Updated 05/15/24 @ 20:03 by Vashti Norman APRN) Prostate cancer BPH (benign prostatic hyperplasia) Surgical History Surgical History Hx of cholecystectomy Social History Social History Smoking status: Never smoker Alcohol intake: current Drinks per week: 1 Alcohol use details: occasional Substance use: never Substance use type: does not use Do You Feel Safe in your Home?: Yes Lack of Transportation: No Lack of Food: Never True Current Housing: I Have Housing Concerned About Future Housing: No Difficulty Paying Gas/Electric Bills: No Difficulty Paying for Meds: No Currently Unemployed: No Education: Bachelor's Degree Difficulty w/ Childcare or Family Care: No Living arrangements: with family Occupation/Education: retired Spiritual care concerns: No Meds Home Medications and Allergies Home Medications ?Medication ?Instructions ?Recorded ?Confirmed ?Type sildenafil (pulm.hypertension) 20 20 mg PO Q24H PRN sexual activity 05/15/24 05/15/24 History mg tablet tamsulosin 0.4 mg capsule 0.4 mg PO QAM 05/15/24 05/15/24 History venlafaxine 75 mg capsule,extended 75 mg PO QAM 05/15/24 05/15/24 History release 24 hr Allergies Allergy/AdvReac Type Severity Reaction Status Date / Time No Known Allergies Allergy Verified 05/15/24 19:57 Vital Signs Vital Signs - 24 hr 05/15/24 13:26 05/15/24 15:20 05/15/24 15:22 Temperature 97.8 F Pulse Rate 88 60 Respiratory Rate 20 19 Blood Pressure 156/83 H 167/85 H Pulse Oximetry 100 99 100 Oxygen Delivery Room Air Room Air 05/15/24 15:22 05/15/24 15:31 05/15/24 16:36 Temperature Pulse Rate 61 58 L 51 L Respiratory Rate 15 19 17 Blood Pressure 167/85 H 171/88 H 139/80 Pulse Oximetry 100 100 100 Oxygen Delivery Exam Const: General: comfortable and no acute distress Other: male, nontoxic appearance, recumbent in in patient room HENMT: Face/Nose/Sinus: Normal nares present Mouth: Yes moist mucous membranes Eyes: General: appearance normal, both eyes and all related structures Sclera: sclerae normal Pupils: Equal, round and reactive pupils present EOM: EOMs intact bilaterally Resp: Effort & Inspection: normal respiratory effort Auscultation: clear to auscultation bilaterally Cardio: Rate: regular rate Rhythm: regular rhythm Other: S1-S2 present without murmur, rub, ectopy GI: Other: Abdomen soft, nondistended, nontender. Skin: General skin exam: normal color and no rashes or lesions noted Wounds: no wounds Neuro: Speech: normal speech Motor exam (neuro): 5/5 motor strength present throughout Sensory Exam: normal sensation Other: A&O x4 Extrem: General: normal to inspection Psych: Mental Status: mental status grossly normal Affect: normal affect Other: Good insight and judgment, pleasant H&P: Results Labs Labs: Short CBC 05/15/24 Range/Units 13:35 WBC 8.1 (4.5-10.0) K/mm3 Hgb 14.2 (14.0-18.0) g/dL Hct 42.7 (42.0-52.0) % Plt Count 295 (150-375) k/mm3 BMP 05/15/24 13:35 Sodium 139 Potassium 4.4 Chloride 103 Carbon Dioxide 22 BUN 27 H Creatinine 0.99 Glucose 113 H Calcium 9.4 Cardiac Enzymes 05/15/24 05/15/24 Range/Units 13:35 16:05 Troponin I < 0.012 0.017 D (0.000-0.034) ng/mL Liver Function 05/15/24 Range/Units 13:35 Total Bilirubin 0.7 (0.2-1.3) mg/dL AST 28 (17-59) U/L ALT 25 (6-50) U/L Alkaline Phosphatase 79 (38-126) U/L Albumin 4.3 (3.5-5.1) g/dL Assessment and Plan Assessment and plan (1) Chest pain: Qualifiers: Chest pain type: unspecified Qualified Code(s): R07.9 - Chest pain, unspecified Code(s): R07.9 - Chest pain, unspecified Status: Acute Assessment and Plan: - EKG, initial: Sinus rhythm, rate 83, possible inferior HI probably old, baseline artifact. - EKG, repeat (1): When compared to previous, HR has decreased and low QRS voltage now present. - CXR: No acute cardiopulmonary disease - Troponin: <0.012 -> 0.017, 6 hour ordered - ASA 162 given, patient took 162 at home - SL nitro PRN - cardiology consulted, awaiting recs - check lipid panel - no echo or stress on file - telemetry monitoring Plan Diet: Heart healthy GI Prophylaxis: Not currently indicated DVT Prophylaxis: SCDs Lines: Peripheral Code Status: Full code Quality VTE Prophylaxis VTE prophylaxis: mechanical ordered Hospitalist [facility] Advance Care Plan I have confirmed that the patient's Advanced Care Plan is present, code status is documented, or surrogate decision maker is listed in patient medical record.: Yes Medication Reconciliation I have utilized all available resources to obtain, update and review the patients current medications (includes all prescriptions, OTC, herbals, cannabis, and nutritional supplements).: Yes
[2024-05-15 20:10] LABS: Troponin I 0.156 ng/mL (0.000-0.034)
[2024-05-15] MEDS: DICLOFENAC SODIUM 1% 100 GM GEL (*BKC) 1 APPLIC TOPICAL (20:47)
[2024-05-16] VITALS (33 sets, daily range): BP systolic 101–142; BP diastolic 61–80; PULSE 48–72; RESP 12–24; TEMP 36.4–37.1; O2SAT 93–100
[2024-05-16] MEDS: NITROGLYCERIN SL 0.4 MG TABLET SUBLINGUAL ×3 (00:31→00:50)
[2024-05-16] MEDS: MORPHINE SULFATE (*CRX) 2 MG/ML INJ IV PUSH (00:32)
[2024-05-16] MEDS: NITROGLYCERIN OINTMENT 1 INCH DOSE 0.5 INCH TRANSDERM ×2 (01:58→06:10)
[2024-05-16] MEDS: HEPARIN SOD/D5W 100 UNITS/ML 25,000 UNITS/250 ML BAG 8 UNITS IV CONT (02:00)
[2024-05-16 02:04] LABS: Basophils Absolute Auto 0.1 K/mm3 (0.0-0.1); Basophils Percent Auto 0.8 % (0.2-1.2); Eosinophils Absolute Auto 0.3 K/mm3 (0-0.3); Eosinophils Percent Auto 4.4 % (0-4.4); Hematocrit 37.8 % (42.0-52.0); Hemoglobin 12.7 g/dL (14.0-18.0); Immature Granulocyte Absolute 0.02 K/mm3 (0.00-0.031); Immature Granulocyte Percent A 0.3 % (0-0.5); Lymphocytes Absolute Auto 2.73 K/mm3 (0.9-3.2); Lymphocytes Percent Auto 35.4 % (18.3-44.2); Mean Corpuscular HGB Conc 33.6 g/dl (32-36); Mean Corpuscular Hemoglobin 27.8 pg (26-34); Mean Corpuscular Volume 82.7 fl (80-100); Mean Platelet Volume 9.3 fl (7.4-10.4); Monocytes Absolute Auto 0.7 K/mm3 (0.1-0.6); Monocytes Percent Auto 8.7 % (2.6-8.5); Neutrophils Absolute Auto 3.9 K/mm3 (1.3-6.7); Neutrophils Percent Auto 50.4 % (45.5-73.1); Platelet Count Result 260 k/mm3 (150-375); Red Blood Count 4.57 M/mm3 (4.6-6.20); Red Cell Distribution Width 13.8 % (11.5-14.5); White Blood Count 7.7 K/mm3 (4.5-10.0)
[2024-05-16 02:15] LABS: Anion Gap 8 mmol/L (4-12); Blood Urea Nitrogen 26 mg/dL (9-20); Calcium 8.7 mg/dL (8.4-10.2); Carbon Dioxide 23 mmol/L (22-30); Chloride 104 mmol/L (98-107); Cholesterol 201 mg/dL (0-200); Estimated CRCL calculation 65 ml/min; Estimated Glomerular Filt Rate > 60; Glucose 97 mg/dL (65-110); HDL Direct 62 mg/dL; Potassium 4.1 mmol/L (3.4-5.0); Sodium 135 mmol/L (137-145); Triglycerides 89 mg/dL (<150)
[2024-05-16 02:20] LABS: INR 1.1; Prothrombin Time 14.8 Seconds (11.1-14.7)
[2024-05-16 02:21] LABS: Partial Thromboplastin Time 30.2 Seconds (22.3-36.8)
[2024-05-16 02:26] LABS: LDL Cholesterol Direct 97 mg/dL
--- NOTE | 2024-05-16 06:16 | PC.NURSE ---
05/16/24 at 0616- Message left with Pt's spouse, Arminda Nova to update her on this Pt's new room assignment location/room number.
--- NOTE | 2024-05-16 06:34 | PC.NURSE ---
This patient, Jono Nova III, was transferred to ICU-9 on 05/16/24 at 0630. Personal belongings sent with patient. Report given to BORIS Bennett. Appropriate documentation sent with patient.
--- NOTE | 2024-05-16 06:50 | PC.NURSE ---
pt moved to ICU 9 on monitor with heparin drip running.PT verb no c/o. report from Nohemi Wood
[2024-05-16] MEDS: ACETAMINOPHEN 325 MG TABLET 650 MG PO ×2 (07:19→11:28)
[2024-05-16 08:24] LABS: Basophils Absolute Auto 0.1 K/mm3 (0.0-0.1); Basophils Percent Auto 0.9 % (0.2-1.2); Eosinophils Absolute Auto 0.2 K/mm3 (0-0.3); Eosinophils Percent Auto 3.6 % (0-4.4); Hematocrit 40.4 % (42.0-52.0); Hemoglobin 13.2 g/dL (14.0-18.0); Immature Granulocyte Absolute 0.01 K/mm3 (0.00-0.031); Immature Granulocyte Percent A 0.2 % (0-0.5); Lymphocytes Absolute Auto 2.05 K/mm3 (0.9-3.2); Lymphocytes Percent Auto 31.1 % (18.3-44.2); Mean Corpuscular HGB Conc 32.7 g/dl (32-36); Mean Corpuscular Hemoglobin 27.2 pg (26-34); Mean Corpuscular Volume 83.3 fl (80-100); Mean Platelet Volume 9.3 fl (7.4-10.4); Monocytes Absolute Auto 0.6 K/mm3 (0.1-0.6); Neutrophils Absolute Auto 3.6 K/mm3 (1.3-6.7); Neutrophils Percent Auto 55.2 % (45.5-73.1); Platelet Count Result 284 k/mm3 (150-375); Red Blood Count 4.85 M/mm3 (4.6-6.20); Red Cell Distribution Width 13.7 % (11.5-14.5); White Blood Count 6.6 K/mm3 (4.5-10.0)
[2024-05-16 08:37] LABS: Partial Thromboplastin Time 42.1 Seconds (22.3-36.8)
--- NOTE | 2024-05-16 09:24 | PM.CNCAR ---
Assessment and Plan Assessment and plan (1) NSTEMI (non-ST elevated myocardial infarction): Code(s): I21.4 - Non-ST elevation (NSTEMI) myocardial infarction Status: Acute Assessment and Plan: Troponins 0.012, 0.017, 0.156 EKG sinus bradycardia with low voltage QRS in precordial leads, inferior and and probable anterior infarct age indeterminate Given typical anginal chest pain, risk factors including male gender, age and recent stress, recommend cardiac catheterization to further evaluate for any underlying coronary plaque rupture as cause of patient's ACS Continue aspirin 81 mg daily Will load 2nd antiplatelet agent in the pathology laboratory director based on anatomy Continue heparin drip Add Atorvastatin 40 mg daily Check and replace electrolytes to keep keep potassium greater than 4 and magnesium greater than 2 Transthoracic echocardiogram today Heart healthy diet Monitor on telemetry Above recommendations were discussed with patient including risks and benefits of cardiac catheterization and possible percutaneous coronary intervention and he agrees to proceed. No known contrast allergy. He has prostate cancer for which he is seeing his oncologist and treatment is to be determined (2) Bradycardia: Code(s): R00.1 - Bradycardia, unspecified Status: Acute Assessment and Plan: He remains asymptomatic He is very active at baseline and exercises regularly which could be the reason for his bradycardia Avoid AV say blocking agents given heart rate in the 50s History of Present Illness History of Present Illness Consult date/time: 05/16/24 09:24 Reason For Visit: Chest Pain Narrative: 69-year-old male with past medical history of benign prostatic hyperplasia, prostate cancer, anemia on iron supplements presents with chief complaints of chest pain. Patient is accompanied by his at bedside. Patient was fishing yesterday when he started having pain in the mid chest that radiated to the left chest back neck both shoulders. He usually has chest symptoms from GERD which resolves with water intake. However the chest pain did not resolve after he drank water and this concerned him. This prompted him to leave and go home and take 2 aspirin 81 mg tablets. When pain did not resolve with aspirin he presented to the ER. The pain lasted from noon until about 8:00 p.m. and he says it may have resolved after medicines were given in the ER. The pain returned at about 12:30 a.m. again and has since resolved. Initial 2 troponin were negative but 3rd troponin came back elevated at 0.156. Cardiology is consulted for further management. He denies any chest pain currently. No shortness of breath, diaphoresis, leg swelling, recent weight gain, dizziness, lightheadedness, palpitations, presyncope, syncope. He is very active at baseline and exercises regularly. His heart rate is on the low side in the 50s usually and his systolic blood pressure is in the 110s range. He does not smoke but has and alcohol drink occasionally. He is having a lot of stress lately due to recent diagnosis of prostate cancer for which he he is seeing an oncologist and treatment plan is to be determined. Workup: Troponin: 0.012, 0.017, 0.156 LDL: 97 EKG: Sinus bradycardia with heart rate in the 50s, low QRS voltage in precordial leads, inferior infarct age indeterminate, probable anterior infarct age indeterminate TTE: Ordered Review of Systems Review of Systems: Complete review of systems was negative other than those mentioned in HPI [facility] Past Medical History Medical History (Updated 05/16/24 @ 09:28 by Moon Menon MD) Prostate cancer BPH (benign prostatic hyperplasia) Surgical History Surgical History Hx of cholecystectomy Family History Family History Mother Congestive heart failure Clostridioides difficile infection Aspiration into airway Father Prostate carcinoma Emphysema of lung Alzheimer disease Sibling Blood disorder Splenic rupture Sibling Melanoma Sibling No significant past medical history Social History Social History Smoking status: Never smoker Alcohol intake: current Drinks per week: 1 Alcohol use details: occasional Substance use: never Substance use type: does not use Do You Feel Safe in your Home?: Yes Lack of Transportation: No Lack of Food: Never True Current Housing: I Have Housing Concerned About Future Housing: No Difficulty Paying Gas/Electric Bills: No Difficulty Paying for Meds: No Currently Unemployed: No Education: Bachelor's Degree Difficulty w/ Childcare or Family Care: No Living arrangements: with family Occupation/Education: retired Spiritual care concerns: No Meds Home Medications and Allergies Home Medications ?Medication ?Instructions ?Recorded ?Confirmed ?Type ferrous sulfate 325 mg (65 mg 325 mg PO .QOD 05/15/24 05/15/24 History iron) tablet (Iron (ferrous sulfate)) sildenafil (pulm.hypertension) 20 20 mg PO Q24H PRN sexual activity 05/15/24 05/15/24 History mg tablet tamsulosin 0.4 mg capsule 0.4 mg PO QAM 05/15/24 05/15/24 History venlafaxine 75 mg capsule,extended 75 mg PO QAM 05/15/24 05/15/24 History release 24 hr Allergies Allergy/AdvReac Type Severity Reaction Status Date / Time No Known Allergies Allergy Verified 05/15/24 19:57 Vital Signs Vital Signs - 24 hr 05/15/24 13:26 05/15/24 15:20 05/15/24 15:22 Temperature 36.6 C Pulse Rate 88 60 Respiratory Rate 20 19 Blood Pressure 156/83 H 167/85 H Pulse Oximetry 100 99 100 Oxygen Delivery Room Air Room Air 05/15/24 15:22 05/15/24 15:31 05/15/24 16:36 Temperature Pulse Rate 61 58 L 51 L Respiratory Rate 15 19 17 Blood Pressure 167/85 H 171/88 H 139/80 Pulse Oximetry 100 100 100 Oxygen Delivery 05/15/24 17:40 05/15/24 18:00 05/15/24 19:30 Temperature Pulse Rate 61 62 80 Respiratory Rate 20 20 Blood Pressure 140/82 Pulse Oximetry 96 95 Oxygen Delivery Room Air 05/15/24 19:30 05/15/24 20:00 05/15/24 21:56 Temperature 37.0 C Pulse Rate 80 79 56 L Respiratory Rate 20 Blood Pressure 119/69 Pulse Oximetry 95 Oxygen Delivery 05/15/24 23:33 05/15/24 23:35 05/16/24 00:00 Temperature 36.4 C L Pulse Rate 56 L 56 L 49 L Respiratory Rate 16 16 Blood Pressure 138/78 Pulse Oximetry 95 95 Oxygen Delivery Room Air 05/16/24 00:30 05/16/24 00:45 05/16/24 00:48 Temperature Pulse Rate 49 L 53 L 54 L Respiratory Rate 18 14 12 Blood Pressure 134/77 117/67 110/64 Pulse Oximetry 96 93 94 Oxygen Delivery 05/16/24 01:00 05/16/24 01:30 05/16/24 03:22 Temperature Pulse Rate 53 L 54 L 54 L Respiratory Rate 12 15 Blood Pressure 108/66 Pulse Oximetry 94 94 Oxygen Delivery Room Air 05/16/24 03:51 05/16/24 04:00 05/16/24 05:28 Temperature 36.6 C Pulse Rate 56 L 51 L 53 L Respiratory Rate 15 Blood Pressure 103/61 Pulse Oximetry 95 Oxygen Delivery Exam Narrative: General: Alert oriented x3, no acute distress Neck: Supple, no JVD Chest: Bilaterally clear to auscultation, no rales or rhonchi Cardiac: S1, S2 +, regular rate, regular rhythm, no murmurs or rubs Extremities: No pedal edema, no skin rash Neurologic: Alert and oriented x3, no focal neurological deficits Results Labs and Meds 05/16/24 08:12 05/16/24 01:58 Lab results: Cardiac Enzymes 05/15/24 05/15/24 05/15/24 Range/Units 13:35 16:05 19:14 AST 28 (17-59) U/L Troponin I < 0.012 0.017 D 0.156 H* D (0.000-0.034) ng/mL Coagulation 05/15/24 05/16/24 05/16/24 Range/Units 13:35 01:58 08:12 PT 13.8 14.8 H (11.1-14.7) Seconds APTT 33.4 30.2 42.1 H (22.3-36.8) Seconds Lipids 05/16/24 Range/Units 01:58 Triglycerides 89 (<150) mg/dL Cholesterol 201 H (0-200) mg/dL CBC 05/15/24 05/16/24 05/16/24 Range/Units 13:35 01:58 08:12 WBC 8.1 7.7 6.6 (4.5-10.0) K/mm3 RBC 5.10 4.57 L 4.85 (4.6-6.20) M/mm3 Hgb 14.2 12.7 L 13.2 L (14.0-18.0) g/dL Hct 42.7 37.8 L 40.4 L (42.0-52.0) % Plt Count 295 260 284 (150-375) k/mm3 Lymph # (Auto) 2.23 2.73 2.05 (0.9-3.2) K/mm3 [place] # (Auto) 0.6 0.7 H 0.6 (0.1-0.6) K/mm3 Eos # (Auto) 0.1 0.3 0.2 (0-0.3) K/mm3 Baso # (Auto) 0.1 0.1 0.1 (0.0-0.1) K/mm3 Comprehensive Metabolic Panel 05/15/24 05/16/24 Range/Units 13:35 01:58 Sodium 139 135 L (137-145) mmol/L Potassium 4.4 4.1 (3.4-5.0) mmol/L Chloride 103 104 (98-107) mmol/L Carbon Dioxide 22 23 (22-30) mmol/L BUN 27 H 26 H (9-20) mg/dL Creatinine 0.99 0.82 (0.7-1.3) mg/dL Glucose 113 H 97 (65-110) mg/dL Calcium 9.4 8.7 (8.4-10.2) mg/dL AST 28 (17-59) U/L ALT 25 (6-50) U/L Alkaline Phosphatase 79 (38-126) U/L Total Protein 7.0 (6.3-8.2) g/dL Albumin 4.3 (3.5-5.1) g/dL Intake and Output 05/15/24 05/16/24 05/16/24 23:59 07:59 15:59 Intake Total 480 400 Output Total 240 140 Balance 240 260 Intake: Oral 480 400 Output: Urine 240 140 Patient Weight 05/16/24 23:59 Weight 77 kg EKG Interpretation EKG shows: bradycardia (Low QRS voltage in precordial leads, inferior infarct age indeterminate, probable anterior infarct age indeterminate)
[2024-05-16] MEDS: HEPARIN SODIUM 5,000 UNITS/ML VIAL 4000 UNITS IV PUSH (09:26)
[2024-05-16] MEDS: ASPIRIN 81 MG CHEWABLE TABLET PO (09:27)
[2024-05-16] MEDS: TAMSULOSIN HCL 0.4 MG CAPSULE PO (09:27)
--- NOTE | 2024-05-16 09:35 | WPDMODSED ---
Moderate Sedation Note-Pt Data Patient Data Allergies Allergy/AdvReac Type Severity Reaction Status Date / Time No Known Allergies Allergy Verified 05/15/24 19:57 Home Medications ?Medication ?Instructions ?Recorded ?Confirmed ?Type ferrous sulfate 325 mg (65 mg 325 mg PO .QOD 05/15/24 05/15/24 History iron) tablet (Iron (ferrous sulfate)) sildenafil (pulm.hypertension) 20 20 mg PO Q24H PRN sexual activity 05/15/24 05/15/24 History mg tablet tamsulosin 0.4 mg capsule 0.4 mg PO QAM 05/15/24 05/15/24 History venlafaxine 75 mg capsule,extended 75 mg PO QAM 05/15/24 05/15/24 History release 24 hr Current Medications: Active Medications Acetaminophen (Acetaminophen 325 Mg Tablet) 650 mg PO Q4H PRN PRN Reason: Mild Pain (1-3) or Fever Acetaminophen (Acetaminophen 325 Mg Tablet) 650 mg PO Q4H PRN PRN Reason: Headache Last Admin: 05/16/24 07:19 Dose: 650 mg Aspirin (Aspirin 81 Mg Chewable Tablet) 81 mg PO DAILY@0800 [facility] Last Admin: 05/16/24 09:27 Dose: 81 mg Diclofenac Sodium (Diclofenac Sodium 1% 100 Gm Gel (*Bkc)) 1 applic TOPICAL QID [facility] Last Admin: 05/15/24 20:47 Dose: 1 applic Ferrous Sulfate (Ferrous Sulfate [address]) 325 mg PO Q48H [facility] Heparin Sodium (Porcine) (Heparin Sodium 5,000 Units/Ml Vial) 4,000 units IV PUSH PRN PRN PRN Reason: aPTT less than 55 seconds Last Admin: 05/16/24 09:26 Dose: 4,000 units Heparin Sodium (Porcine) (Heparin Sodium 5,000 Units/Ml Vial) 3,000 units IV PUSH PRN PRN PRN Reason: aPTT 55 - 70 seconds Heparin Sodium/Dextrose (Heparin Sodium/D5w 100 Units/Ml) 25,000 units in 250 mls @ 11 mls/hr IV CONT .[id number] [facility]; Protocol Last Titration: 05/16/24 09:29 Dose: 1,100 units/hr, 11 mls/hr Morphine Sulfate (Morphine Sulfate (*Crx) 2 Mg/Ml Inj) 2 mg IV PUSH Q2H PRN PRN Reason: Pain Rated 7-10 Last Admin: 05/16/24 00:32 Dose: 2 mg Nitroglycerin (Nitroglycerin Sl 0.4 Mg Tablet) 0.4 mg SUBLINGUAL Q5MIN PRN PRN Reason: Chest Pain Last Admin: 05/16/24 00:50 Dose: 0.4 mg Nitroglycerin (Nitroglycerin Ointment 1 Inch Dose) 0.5 inch TRANSDERM Q6HR [facility] Last Admin: 05/16/24 06:10 Dose: 0.5 inch Tamsulosin HCl (Tamsulosin Hcl 0.4 Mg Capsule) 0.4 mg PO QAM [facility] Last Admin: 05/16/24 09:27 Dose: 0.4 mg Venlafaxine HCl (Venlafaxine Hcl Xr 75 Mg Cap.Er.24h) 75 mg PO [facility] Sedation/Anesthesia: No previous sedation/anesthesia problems (including family history). PENDING SALE TO [facility] Past Medical History Medical History (Updated 05/16/24 @ 09:28 by Moon Menon MD) Prostate cancer BPH (benign prostatic hyperplasia) Surgical History Surgical History Hx of cholecystectomy Family History Family History Mother Congestive heart failure Clostridioides difficile infection Aspiration into airway Father Prostate carcinoma Emphysema of lung Alzheimer disease Sibling Blood disorder Splenic rupture Sibling Melanoma Sibling No significant past medical history Social History Social History Smoking status: Never smoker Alcohol intake: current Drinks per week: 1 Alcohol use details: occasional Substance use: never Substance use type: does not use Do You Feel Safe in your Home?: Yes Lack of Transportation: No Lack of Food: Never True Current Housing: I Have Housing Concerned About Future Housing: No Difficulty Paying Gas/Electric Bills: No Difficulty Paying for Meds: No Currently Unemployed: No Education: Bachelor's Degree Difficulty w/ Childcare or Family Care: No Living arrangements: with family Occupation/Education: retired Spiritual care concerns: No Mod Sed Physical Exam Physical Exam Pre Procedural Exam: Normal: Lungs, Heart Size, Heart Rate and Heart Rhythm Hours since solid foods: 12 Hours since liquid intake: 12 Mallampati Classification: class II Internal Medicine - PN: Obj Da Vital Signs Vital Signs: Vital Signs - 24 hr 05/15/24 13:26 05/15/24 15:20 05/15/24 15:22 Temperature 36.6 C Pulse Rate 88 60 Respiratory Rate 20 19 Blood Pressure 156/83 H 167/85 H Pulse Oximetry 100 99 100 Oxygen Delivery Room Air Room Air 05/15/24 15:22 05/15/24 15:31 05/15/24 16:36 Temperature Pulse Rate 61 58 L 51 L Respiratory Rate 15 19 17 Blood Pressure 167/85 H 171/88 H 139/80 Pulse Oximetry 100 100 100 Oxygen Delivery 05/15/24 17:40 05/15/24 18:00 05/15/24 19:30 Temperature Pulse Rate 61 62 80 Respiratory Rate 20 20 Blood Pressure 140/82 Pulse Oximetry 96 95 Oxygen Delivery Room Air 05/15/24 19:30 05/15/24 20:00 05/15/24 21:56 Temperature 37.0 C Pulse Rate 80 79 56 L Respiratory Rate 20 Blood Pressure 119/69 Pulse Oximetry 95 Oxygen Delivery 05/15/24 23:33 05/15/24 23:35 05/16/24 00:00 Temperature 36.4 C L Pulse Rate 56 L 56 L 49 L Respiratory Rate 16 16 Blood Pressure 138/78 Pulse Oximetry 95 95 Oxygen Delivery Room Air 05/16/24 00:30 05/16/24 00:45 05/16/24 00:48 Temperature Pulse Rate 49 L 53 L 54 L Respiratory Rate 18 14 12 Blood Pressure 134/77 117/67 110/64 Pulse Oximetry 96 93 94 Oxygen Delivery 05/16/24 01:00 05/16/24 01:30 05/16/24 03:22 Temperature Pulse Rate 53 L 54 L 54 L Respiratory Rate 12 15 Blood Pressure 108/66 Pulse Oximetry 94 94 Oxygen Delivery Room Air 05/16/24 03:51 05/16/24 04:00 05/16/24 05:28 Temperature 36.6 C Pulse Rate 56 L 51 L 53 L Respiratory Rate 15 Blood Pressure 103/61 Pulse Oximetry 95 Oxygen Delivery Intake/Output Intake/Output: Intake & Output 05/13/24 05/14/24 05/15/24 05/16/24 23:59 23:59 23:59 23:59 Intake Total 480 459.9 Output Total 240 140 Balance 240 319.9 Meds/Results Medications: Active Medications Generic Name Dose Route Start Last Admin Trade Name Freq PRN Reason Stop Dose Admin Acetaminophen 650 mg 05/15/24 16:33 Acetaminophen 325 Mg Tablet PO Q4H PRN Mild Pain (1-3) or Fever Acetaminophen 650 mg 05/16/24 07:01 05/16/24 07:19 Acetaminophen 325 Mg Tablet PO 650 mg Q4H PRN Administration Headache Aspirin 81 mg 05/16/24 08:00 05/16/24 09:27 Aspirin 81 Mg Chewable Tablet PO 81 mg DAILY@0800 [facility] Administration Diclofenac Sodium 1 applic 05/15/24 21:00 05/15/24 20:47 Diclofenac Sodium 1% 100 Gm Gel (*Bkc) TOPICAL 1 applic QID [facility] Administration Ferrous Sulfate 325 mg 05/17/24 09:00 Ferrous Sulfate [address] PO Q48H [facility] Heparin Sodium (Porcine) 4,000 units 05/16/24 01:44 05/16/24 09:26 Heparin Sodium 5,000 Units/Ml Vial IV PUSH 4,000 units PRN PRN Administration aPTT less than 55 seconds Heparin Sodium (Porcine) 3,000 units 05/16/24 01:44 Heparin Sodium 5,000 Units/Ml Vial IV PUSH PRN PRN aPTT 55 - 70 seconds Heparin Sodium/Dextrose 25,000 units in 250 mls @ 11 mls/hr 05/16/24 01:45 05/16/24 09:29 Heparin Sodium/D5w 100 Units/Ml IV CONT 1,100 units/hr .[id number] [facility] 11 mls/hr Titration Protocol 1,100 UNITS/HR Morphine Sulfate 2 mg 05/15/24 16:33 05/16/24 00:32 Morphine Sulfate (*Crx) 2 Mg/Ml Inj IV PUSH 2 mg Q2H PRN Administration Pain Rated 7-10 Nitroglycerin 0.4 mg 05/15/24 16:33 05/16/24 00:50 Nitroglycerin Sl 0.4 Mg Tablet SUBLINGUAL 0.4 mg Q5MIN PRN Administration Chest Pain Nitroglycerin 0.5 inch 05/16/24 01:40 05/16/24 06:10 Nitroglycerin Ointment 1 Inch Dose TRANSDERM 0.5 inch Q6HR [facility] Administration Tamsulosin HCl 0.4 mg 05/16/24 09:00 05/16/24 09:27 Tamsulosin Hcl 0.4 Mg Capsule [facility] [place] Venlafaxine HCl 75 mg 05/16/24 09:00 Venlafaxine Hcl Xr 75 Mg Cap.Er.24h [facility] [place] Results: ITS Impressions Chest X-Ray 05/15/24 14:23 IMPRESSION: 1. No acute cardiopulmonary disease. Labs 05/16/24 08:12 05/16/24 01:58 Labs: Laboratory Results - last 24 hr 05/15/24 05/15/24 05/15/24 13:35 16:05 19:14 WBC 8.1 RBC 5.10 Hgb 14.2 Hct 42.7 MCV 83.7 MCH 27.8 MCHC 33.3 RDW 13.9 Plt Count 295 MPV 9.3 Immature Gran % (Auto) 0.4 Neut % (Auto) 62.2 Lymph % (Auto) 27.5 [place] % (Auto) 7.6 Eos % (Auto) 1.6 Baso % (Auto) 0.7 Lymph # (Auto) 2.23 [place] # (Auto) 0.6 Eos # (Auto) 0.1 Baso # (Auto) 0.1 Abs Immat Gran (auto) 0.03 Absolute Neuts (auto) 5.0 Absolute Nucleated RBC 0.000 Nucleated RBC % 0.0 PT 13.8 INR 1.0 APTT 33.4 Sodium 139 Potassium 4.4 Chloride 103 Carbon Dioxide 22 Anion Gap 14 H BUN 27 H Creatinine 0.99 Estim Creat Clear Calc 55 Estimated GFR > 60 Glucose 113 H Calcium 9.4 Total Bilirubin 0.7 AST 28 ALT 25 Alkaline Phosphatase 79 Troponin I < 0.012 0.017 D 0.156 H* D Total Protein 7.0 Albumin 4.3 Triglycerides Cholesterol LDL Cholesterol Direct HDL Direct Lipase 66 05/16/24 05/16/24 01:58 08:12 WBC 7.7 6.6 RBC 4.57 L 4.85 Hgb 12.7 L 13.2 L Hct 37.8 L 40.4 L MCV 82.7 83.3 MCH 27.8 27.2 MCHC 33.6 32.7 RDW 13.8 13.7 Plt Count 260 284 MPV 9.3 9.3 Immature Gran % (Auto) 0.3 0.2 Neut % (Auto) 50.4 55.2 Lymph % (Auto) 35.4 31.1 [place] % (Auto) 8.7 H 9.0 H Eos % (Auto) 4.4 3.6 Baso % (Auto) 0.8 0.9 Lymph # (Auto) 2.73 2.05 [place] # (Auto) 0.7 H 0.6 Eos # (Auto) 0.3 0.2 Baso # (Auto) 0.1 0.1 Abs Immat Gran (auto) 0.02 0.01 Absolute Neuts (auto) 3.9 3.6 Absolute Nucleated RBC 0.000 0.000 Nucleated RBC % 0.0 0.0 PT 14.8 H INR 1.1 APTT 30.2 42.1 H Sodium 135 L Potassium 4.1 Chloride 104 Carbon Dioxide 23 Anion Gap 8 BUN 26 H Creatinine 0.82 Estim Creat Clear Calc 65 Estimated GFR > 60 Glucose 97 Calcium 8.7 Total Bilirubin AST ALT Alkaline Phosphatase Troponin I Total Protein Albumin Triglycerides 89 Cholesterol 201 H LDL Cholesterol Direct 97 HDL Direct 62 Lipase ASA Classification/Sedation ASA Classification/Sedation ASA Class: III Emergent: No Risks: Risks, benefits and alternatives explained and patient/family accepted plan for sedation. Patient re-evaluated immediately prior to sedation.
--- NOTE | 2024-05-16 09:49 | PC.NURSE ---
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 No s/s of distress noted.
--- NOTE | 2024-05-16 11:48 | PM.IMPN ---
Progress Note: A&P Assessment and Plan (1) Chest pain: Qualifiers: Chest pain type: unspecified Qualified Code(s): R07.9 - Chest pain, unspecified Code(s): R07.9 - Chest pain, unspecified Status: Acute Assessment and Plan: - EKG, initial: Sinus rhythm, rate 83, possible inferior ME probably old, baseline artifact. - EKG, repeat (1): When compared to previous, HR has decreased and low QRS voltage now present. - CXR: No acute cardiopulmonary disease - Troponin: <0.012 -> 0.017, 6 hour ordered - ASA 162 given, patient took 162 at home - SL nitro PRN - cardiology consulted, awaiting recs - check lipid panel - no echo or stress on file - telemetry monitoring Plan Diet: Heart healthy GI Prophylaxis: Not currently indicated DVT Prophylaxis: SCDs Lines: Peripheral Code Status: Full code Subjective Date/time seen: 05/16/24 11:48 Interval history: Patient not available Exam Narrative: AF 97.6 104/66 53 16 97% ra Gen - NARD Chest - CTA bilaterally, nml RR CV - RRR S1/S2 Abd - Soft, NT/ND, Positive BS Ext - No pedal edema Neuro - Alert and oriented. Nonfocal exam. Psych - Nml mood and affect Skin - Warm and dry Objective Data Vital Signs Vital Signs: Vital Signs - 24 hr 05/15/24 13:26 05/15/24 15:20 05/15/24 15:22 Temperature 97.8 F Pulse Rate 88 60 Pulse Rate [Right Pedal (Dorsalis Pedis)] Pulse Rate [Right Radial] Respiratory Rate 20 19 Blood Pressure 156/83 H 167/85 H Pulse Oximetry 100 99 100 Oxygen Delivery Room Air Room Air 05/15/24 15:22 05/15/24 15:31 05/15/24 16:36 Temperature Pulse Rate 61 58 L 51 L Pulse Rate [Right Pedal (Dorsalis Pedis)] Pulse Rate [Right Radial] Respiratory Rate 15 19 17 Blood Pressure 167/85 H 171/88 H 139/80 Pulse Oximetry 100 100 100 Oxygen Delivery 05/15/24 17:40 05/15/24 18:00 05/15/24 19:30 Temperature Pulse Rate 61 62 80 Pulse Rate [Right Pedal (Dorsalis Pedis)] Pulse Rate [Right Radial] Respiratory Rate 20 20 Blood Pressure 140/82 Pulse Oximetry 96 95 Oxygen Delivery Room Air 05/15/24 19:30 05/15/24 20:00 05/15/24 21:56 Temperature 98.6 F Pulse Rate 80 79 56 L Pulse Rate [Right Pedal (Dorsalis Pedis)] Pulse Rate [Right Radial] Respiratory Rate 20 Blood Pressure 119/69 Pulse Oximetry 95 Oxygen Delivery 05/15/24 23:33 05/15/24 23:35 05/16/24 00:00 Temperature 97.5 F L Pulse Rate 56 L 56 L 49 L Pulse Rate [Right Pedal (Dorsalis Pedis)] Pulse Rate [Right Radial] Respiratory Rate 16 16 Blood Pressure 138/78 Pulse Oximetry 95 95 Oxygen Delivery Room Air 05/16/24 00:30 05/16/24 00:45 05/16/24 00:48 Temperature Pulse Rate 49 L 53 L 54 L Pulse Rate [Right Pedal (Dorsalis Pedis)] Pulse Rate [Right Radial] Respiratory Rate 18 14 12 Blood Pressure 134/77 117/67 110/64 Pulse Oximetry 96 93 94 Oxygen Delivery 05/16/24 01:00 05/16/24 01:30 05/16/24 03:22 Temperature Pulse Rate 53 L 54 L 54 L Pulse Rate [Right Pedal (Dorsalis Pedis)] Pulse Rate [Right Radial] Respiratory Rate 12 15 Blood Pressure 108/66 Pulse Oximetry 94 94 Oxygen Delivery Room Air 05/16/24 03:51 05/16/24 04:00 05/16/24 05:28 Temperature 97.8 F Pulse Rate 56 L 51 L 53 L Pulse Rate [Right Pedal (Dorsalis Pedis)] Pulse Rate [Right Radial] Respiratory Rate 15 Blood Pressure 103/61 Pulse Oximetry 95 Oxygen Delivery 05/16/24 08:00 05/16/24 08:00 05/16/24 11:12 Temperature 97.6 F Pulse Rate 58 L 58 L Pulse Rate [Right Pedal (Dorsalis Pedis)] 50 L Pulse Rate [Right Radial] 50 L Respiratory Rate 20 20 Blood Pressure 118/71 Pulse Oximetry 98 98 Oxygen Delivery Room Air 05/16/24 11:12 05/16/24 11:17 05/16/24 11:17 Temperature Pulse Rate 50 L 48 L Pulse Rate [Right Pedal (Dorsalis Pedis)] 48 L Pulse Rate [Right Radial] 48 L Respiratory Rate 14 14 Blood Pressure 113/68 106/66 Pulse Oximetry 95 93 Oxygen Delivery Room Air Room Air 05/16/24 11:30 05/16/24 11:30 Temperature Pulse Rate 53 L Pulse Rate [Right Pedal (Dorsalis Pedis)] 53 L Pulse Rate [Right Radial] 53 L Respiratory Rate 18 Blood Pressure 104/66 Pulse Oximetry 97 Oxygen Delivery Room Air Intake/Output Intake/Output: Intake & Output 05/13/24 05/14/24 05/15/24 05/16/24 23:59 23:59 23:59 23:59 Intake Total 480 509.9 Output Total 240 390 Balance 240 119.9 Meds/Results Medications: Active Medications Generic Name Dose Route Start Last Admin Trade Name Freq PRN Reason Stop Dose Admin Acetaminophen 650 mg 05/15/24 16:33 05/16/24 11:28 Acetaminophen 325 Mg Tablet PO 650 mg Q4H PRN Administration Mild Pain (1-3) or Fever Acetaminophen 650 mg 05/16/24 07:01 05/16/24 07:19 Acetaminophen 325 Mg Tablet PO 650 mg Q4H PRN Administration Headache Aspirin 81 mg 05/16/24 08:00 05/16/24 09:27 Aspirin 81 Mg Chewable Tablet PO 81 mg DAILY@0800 [facility] Administration Diclofenac Sodium 1 applic 05/15/24 21:00 05/15/24 20:47 Diclofenac Sodium 1% 100 Gm Gel (*Bkc) TOPICAL 1 applic QID [place] Administration Ferrous Sulfate 325 mg 05/17/24 09:00 Ferrous Sulfate [address] PO Q48H [facility] Sodium Chloride 1,000 mls @ 125 mls/hr 05/16/24 11:26 Normal Saline Iv IV CONT 05/16/24 19:25 .Q8H ONE Morphine Sulfate 2 mg 05/15/24 16:33 05/16/24 00:32 Morphine Sulfate (*Crx) 2 Mg/Ml Inj IV PUSH 2 mg Q2H PRN Administration Pain Rated 7-10 Nitroglycerin 0.4 mg 05/15/24 16:33 05/16/24 00:50 Nitroglycerin Sl 0.4 Mg Tablet SUBLINGUAL 0.4 mg Q5MIN PRN Administration Chest Pain Perflutren Lipid Microsphere 0 ml 05/16/24 09:39 Perflutren Lipid Microspheres 1.5 Ml Vial Diluted To 10 Ml Total Volume IV PUSH 05/19/24 09:39 ONCE PRN adequate visualization Protocol Tamsulosin HCl 0.4 mg 05/16/24 09:00 05/16/24 09:27 Tamsulosin Hcl 0.4 Mg Capsule PO 0.[facility] [facility] [place] Venlafaxine HCl 75 mg 05/16/24 09:00 Venlafaxine Hcl Xr 75 Mg Cap.Er.24h PO QAM [facility] Radiology Results: ITS Impressions Chest X-Ray 05/15/24 14:23 IMPRESSION: 1. No acute cardiopulmonary disease. Labs Labs: Laboratory Results - last 24 hr 05/15/24 05/15/24 05/15/24 13:35 16:05 19:14 WBC 8.1 RBC 5.10 Hgb 14.2 Hct 42.7 MCV 83.7 MCH 27.8 MCHC 33.3 RDW 13.9 Plt Count 295 MPV 9.3 Immature Gran % (Auto) 0.4 Neut % (Auto) 62.2 Lymph % (Auto) 27.5 [place] % (Auto) 7.6 Eos % (Auto) 1.6 Baso % (Auto) 0.7 Lymph # (Auto) 2.23 [place] # (Auto) 0.6 Eos # (Auto) 0.1 Baso # (Auto) 0.1 Abs Immat Gran (auto) 0.03 Absolute Neuts (auto) 5.0 Absolute Nucleated RBC 0.000 Nucleated RBC % 0.0 PT 13.8 INR 1.0 APTT 33.4 Sodium 139 Potassium 4.4 Chloride 103 Carbon Dioxide 22 Anion Gap 14 H BUN 27 H Creatinine 0.99 Estim Creat Clear Calc 55 Estimated GFR > 60 Glucose 113 H Calcium 9.4 Total Bilirubin 0.7 AST 28 ALT 25 Alkaline Phosphatase 79 Troponin I < 0.012 0.017 D 0.156 H* D Total Protein 7.0 Albumin 4.3 Triglycerides Cholesterol LDL Cholesterol Direct HDL Direct Lipase 66 05/16/24 05/16/24 01:58 08:12 WBC 7.7 6.6 RBC 4.57 L 4.85 Hgb 12.7 L 13.2 L Hct 37.8 L 40.4 L MCV 82.7 83.3 MCH 27.8 27.2 MCHC 33.6 32.7 RDW 13.8 13.7 Plt Count 260 284 MPV 9.3 9.3 Immature Gran % (Auto) 0.3 0.2 Neut % (Auto) 50.4 55.2 Lymph % (Auto) 35.4 31.1 [place] % (Auto) 8.7 H 9.0 H Eos % (Auto) 4.4 3.6 Baso % (Auto) 0.8 0.9 Lymph # (Auto) 2.73 2.05 [place] # (Auto) 0.7 H 0.6 Eos # (Auto) 0.3 0.2 Baso # (Auto) 0.1 0.1 Abs Immat Gran (auto) 0.02 0.01 Absolute Neuts (auto) 3.9 3.6 Absolute Nucleated RBC 0.000 0.000 Nucleated RBC % 0.0 0.0 PT 14.8 H INR 1.1 APTT 30.2 42.1 H Sodium 135 L Potassium 4.1 Chloride 104 Carbon Dioxide 23 Anion Gap 8 BUN 26 H Creatinine 0.82 Estim Creat Clear Calc 65 Estimated GFR > 60 Glucose 97 Calcium 8.7 Total Bilirubin AST ALT Alkaline Phosphatase Troponin I Total Protein Albumin Triglycerides 89 Cholesterol 201 H LDL Cholesterol Direct 97 HDL Direct 62 Lipase
--- NOTE | 2024-05-16 12:08 | WPDCARDPROC ---
Cardiac Cath Procedure Note Date of procedure:: 05/16/24 Performing physician:: Moon Menon MD Indication:: NSTEMI Brief clinical history:: 69-year-old male patient with history of prostate cancer presented with chest pain of few hours duration yesterday and was noted to have 2 normal troponin and an elevated troponin. EKG showed normal sinus rhythm with low-voltage QRS complexes in precordial leads, age-indeterminate inferior and possible anterior infarcts. He was started on heparin drip. Cardiology is was consulted for further management. Procedure Procedure performed:: Right radial artery access Ultrasound-guided Right common femoral artery access Left heart catheterization Selective right and left coronary angiogram Sedation/Medication given:: Sedation/Medication given:: Fentanyl 200 mcg Versed 1 mg Sedation start time 10:08 a.m. Sedation end time 10:36 a.m. Total sedation time 28 minutes Access site:: Right radial artery Right common femoral artery access with ultrasound guidance Estimated blood loss:: 20 mL Procedure note:: Patient is brought to the cardiac label stitcher for angiogram and possible intervention. The risks, benefits, alternatives, and possible complications of this procedure was discussed, understood and accepted by the patient. Moderate sedation: I administered moderate sedation throughout the procedure. An independent trained provider pushed medications at my discretion and monitored the patient's level of consciousness and physiological status throughout under my supervision. [id number] time was provided for the entire procedure. Please refer to electronic medical record for total sedation doses provided. Intra service time: 28 minutes Catheters used for selective coronary angiograms: 5 Dutch JL 3.5 5 Dutch JR4 Procedure technique: After informed consent was obtained, the patient was brought to the cardiac label stitcher and was placed in the supine position. The access site was prepped and draped in usual sterile manner. Right radial access was obtained using modified Seldinger technique. A 6 Dutch sheath was inserted. 200 mcg of nitroglycerin was administered in the radial artery. 5000 units of heparin was administered IV. Angiography: When an attempt was made to advance the JR4 catheter patient had severe radial artery spasm. Hence decision was made to switch to femoral access. This right groin skin was infiltrated with 1% lidocaine for local anesthesia. After confirming the location of the inferior border of the femoral head using fluoroscopy, arterial access was obtained using modified Seldinger technique with a micropuncture needle under direct ultrasound guidance. Angiography through the micropuncture sheath confirmed adequate level of access that was also suitable for closure if warranted. The micropuncture sheath was then exchanged for a 6 Dutch sheath which was inserted into the right common femoral artery. Selective coronary angiogram was performed thereafter in a standard fashion using diagnostic 5 Dutch JR4 and JL 3.5 catheters. The left coronary artery was selectively engaged using the 6 Dutch JL 3.5 catheter. The RCA was selectively engaged using a 6 Dutch JR4 catheter. The LV hemodynamics was obtained using the 6 Dutch JR4 catheter. Hemodynamic data: Opening aortic pressure was 125/73/96 mm Hg. Closing aortic pressure 126/74/97 mm Hg. LVEDP mm Hg. Findings:: Findings: 1. The left main coronary artery arises from the left coronary cusp and divides into the left anterior descending and left circumflex. The left main is angiographically free of significant disease. 2. The left anterior descending artery arises from the left main and it is a moderate caliber vessel extending down to the apex. The LAD is angiographically free of significant disease. 3. The left circumflex artery arises from the left main and is a large sized artery. The LCX is angiographically free of significant disease. 4. The right coronary artery arises from the right coronary cusp and bifurcates into a large PDA and PL branches. It is a right-dominant system. The RCA is angiographically free of significant disease. Conclusion:: Normal coronaries Normal LVEDP Assessment and Plan Assessment and plan (1) NSTEMI (non-ST elevated myocardial infarction): Code(s): I21.4 - Non-ST elevation (NSTEMI) myocardial infarction Status: Acute Assessment and Plan: Normal coronaries on cardiac catheterization Vasospasm is a possible etiology and recommended further testing for microvascular disease at the center where this can be performed. Arrange follow-up with cardiology in 4 weeks post discharge Continue aspirin 81 mg daily IV fluids normal saline 1 L at 100 mL/hour TTE today Add imdur 30mg daily Evaluate for noncardiac causes of chest pain (2) Bradycardia: Code(s): R00.1 - Bradycardia, unspecified Status: Acute Assessment and Plan: Heart rate at baseline. Patient is very active enhance his heart rate runs in the 50s usually He is asymptomatic and no further workup indicated
[2024-05-16] MEDS: SODIUM CHLORIDE 0.9% IV 1,000 ML 125 ML IV CONT (12:18)
[2024-05-16] MEDS: PERFLUTREN LIPID MICROSPHERES 1.5 ML VIAL DILUTED TO 10 ML TOTAL VOLUME IV PUSH (14:21)
--- NOTE | 2024-05-16 15:10 | PC.NURSE ---
Report received from BORIS Sky. Patient returned to room without issue. Patient transferred to bed without issue. Bedside assessment completed.
--- NOTE | 2024-05-16 15:40 | PC.NURSE ---
Dr Freire notified patient back in room.
--- NOTE | 2024-05-16 18:14 | PM.DS ---
DS: Admitting Diagnosis Discharge Date 05/16/24 Admitting Diagnosis Chest pain DS: Discharge Diagnosis Discharge Diagnosis (1) Chest pain: Qualifiers: Chest pain type: unspecified Qualified Code(s): R07.9 - Chest pain, unspecified Code(s): R07.9 - Chest pain, unspecified Status: Acute DS: Summary Hospital Course Reason for hospitalization: 69yo male with prostate cancer and BPH here for chest pain. Please see H&P for details. Hospital Course: Patient's vital signs were stable on admission. Blood workup was unrevealing. Troponin climbed to 0.16. Cholesterol was 201 with LDL 97 and HDL 62. Chest x-ray was clear. EKG showed normal sinus rhythm with possible old inferior AL and baseline artifact. Repeat EKG showed mild sinus bradycardia but otherwise similar findings. Echocardiogram ordered but results are pending. Cardiology was consulted and patient underwent left heart catheterization on 05/16/2024 which showed normal coronary arteries and normal LVEDP. Concern for vasospasm as the etiology and Cardiology recommended further testing for microvascular disease. Consider also acid reflux as the etiology for his chest pain. Cardiology recommended continue aspirin and to add Imdur. Discussed with patient about the need to stop sildenafil and he is not ready to stop this medication. He wants instead to hold off on starting the Imdur and he will talk with his doctor in a few days. As such, we will NOT start Imdur now and defer to the patient's PCP and Rotary Screen Printing Machine Operator about if/when he should start Imdur. Patient feels well. He overall did well and was able to be discharged home on 05/16/2024. Status at Discharge Cognitive/behavioral status at discharge: stable Time Spent with Patient Time attestation: Total time spent providing and/or coordinating discharge services: 35 minutes Time spent: Greater than 30 minutes Exam Narrative: AF 97.6 104/66 53 16 97% ra Gen - NARD Chest - CTA bilaterally, nml RR CV - RRR S1/S2. Abd - Soft, NT/ND, Positive BS Ext - No pedal edema. right groin dressing clean, dry and intact. 2+ DP pulses bilaterally. 2+ right radial pulse. normal sensation to right hand, normal product marketing manager to the right hand Psych - Nml mood and affect Skin - Warm and dry DS: Data Data Completed and Pending Labs on day of discharge: Labs from last 24 hours 05/16/24 05/16/24 05/15/24 08:12 01:58 19:14 WBC 6.6 7.7 RBC 4.85 4.57 L Hgb 13.2 L 12.7 L Hct 40.4 L 37.8 L MCV 83.3 82.7 MCH 27.2 27.8 MCHC 32.7 33.6 RDW 13.7 13.8 Plt Count 284 260 MPV 9.3 9.3 Immature Gran % (Auto) 0.2 0.3 Neut % (Auto) 55.2 50.4 Lymph % (Auto) 31.1 35.4 Evangeline % (Auto) 9.0 H 8.7 H Eos % (Auto) 3.6 4.4 Baso % (Auto) 0.9 0.8 Lymph # (Auto) 2.05 2.73 Evangeline # (Auto) 0.6 0.7 H Eos # (Auto) 0.2 0.3 Baso # (Auto) 0.1 0.1 Abs Immat Gran (auto) 0.01 0.02 Absolute Neuts (auto) 3.6 3.9 Absolute Nucleated RBC 0.000 0.000 Nucleated RBC % 0.0 0.0 PT 14.8 H INR 1.1 APTT 42.1 H 30.2 Sodium 135 L Potassium 4.1 Chloride 104 Carbon Dioxide 23 Anion Gap 8 BUN 26 H Creatinine 0.82 Estim Creat Clear Calc 65 Estimated GFR > 60 Glucose 97 Calcium 8.7 Troponin I 0.156 H* D Triglycerides 89 Cholesterol 201 H LDL Cholesterol Direct 97 HDL Direct 62 Discharge Plan Discharge Attending physician on discharge: Felix Freire Consulting providers: Temo Covarrubias Discharging Clinician: Felix Freire Anticipated Discharge Date/Time: 05/16/24 18:22 Patient Disposition: Home, Self-Care Activity: other - see discharge instructions Diet: heart healthy Discharge Instructions: [facility] [address] [place] [address] DISCHARGE INSTRUCTIONS - POST CARDIAC CATH Activity Restriction 1. No Driving for 24 hours 2. No lifting, pushing or pulling more than 10 LBS for 1 week 3. No strenuous activity or exercising for 1 week 4. Shower after 24 hours, do not soak in any water such as hot tubs or bath tubs Wound Care 1. Remove dressing 24 hours after your procedure prior to showering 2. Lather soap and water to puncture site and rinse then pat dry 3. You may apply a new band aid to the site and remove aft er 24 hours then leave open to air 4. Monitor daily for redness, drainage, mild swelling and fever Report IMMEDIATELY: CALL 911 1. If you experience any swelling or bleeding from puncture site. Hold firm pressure over the puncture site until help arrives 2. If you experience any new discomfort in you back, neck, jaw, stomach or arm. Any shortness of breath, nausea, vo miting, or cold sweats 3. If you experience any swelling, tenderness, or numbness in your leg or if your leg becomes cold or has color changes. Follow Up 1. Follow your doctors discharge instructions on resuming your medications. Some medications will need to be held after your procedure 2. Follow up with the office to schedule your next appointment with your doctor 3. Drink plenty of water following your procedure, avoid alcohol If you received a stent or a closure device keep your card with you such as in your wallet. Present your card to your doctor appointments to update your health care information. *For any other questions please call the office at [phone]. Office hours are 8AM 4:30PM Monday through Monday. Avoid NSAIDs (ibuprofen, naproxen, Aleve). Tylenol is safe to take. Follow-up with your primary care provider in 1-2 weeks. Please call for appointment. Follow-up with Rotary Screen Printing Machine Operator in 3-4 weeks. Please call for an appointment. Thank you for using [facility] for your health care needs. Patient Instructions: Antibiotic Form, Heart Attack (DC), Chest Pain (DC) Patient Language: Turkish Stand Alone Forms: General Discharge Information Follow-up/Referrals: UNKNOWN,DOCTOR [Primary Care Provider] - Call for Appointment Moon Menon MD [Physician] - Call for Appointment Discharge Medications: New aspirin [Children's Aspirin] 81 mg Tablet,Chewable 81 mg PO DAILY@0800 Qty: 30 0RF Continued venlafaxine 75 mg capsule,extended release 24hr 75 mg PO QAM tamsulosin 0.4 mg capsule 0.4 mg PO QAM sildenafil (pulm.hypertension) 20 mg tablet 20 mg PO Q24H PRN (Reason: sexual activity) ferrous sulfate [Iron (ferrous sulfate)] 325 mg (65 mg iron) tablet 325 mg PO .QOD Date of admission: 05/15/24 16:33 Primary Care Provider: UNKNOWN,DOCTOR Admitting Provider: Felix Freire Attending physician on admission: Felix Freire Condition: Stable Hospitalist MIPS Heart Failure (Exclusion) Patient has history of Heart Transplant or Left Ventricular Assistive Device?: No IF YES, STOP HERE Heart Failure (Qualifier) Patient has current or prior documentation of LVEF less than or equal to 40%, or mod/servere depressed LVSF?: No IF NO, STOP HERE
--- NOTE | 2024-05-17 14:23 | IVDEFINITY ---
Prior to administration of IV Definity the patient was educated on the risks and benefits of the imaging enhancing agent including potential adverse side effects. The patient verbalized understanding. Allergies were verified. No exclusion criteria were identified and at least one of the following inclusion criteria were met: 1) physician request, 2) patient technically difficult to image (per the [place] [employer] Echocardi[employer] guidelines of two or more segments not discernable within the apical view), or 3) questionable left ventricular function. ?
--- NOTE | 2024-05-21 08:35 | PC.NURSE ---
ECHO results shown to Dr. Freire.
== END 2024-05-16 19:05 | disposition home or self-care (01) ==
LOC: ANHED 16:34 → ANHCPC 17:36 → ANHICU 05-16 06:34
PROVIDERS: Internal Medicine Cardiovascular Disease; Internal Medicine Interventional Cardiology; Student in an Organized Health Care Education/Training Program; Admitting Provider Internal Medicine; Emergency Provider Emergency Medicine; Visit Provider Internal Medicine
PROC: 4A023N7 Measurement of Cardiac Sampling and Pressure, Left Heart, Percutaneous Approach (ICD-10-PCS; CPT 93452; principal; 2024-05-16 09:30)
PROC: (CPT 36140; 2024-05-16 09:30)
DX: R07.9 Chest pain, unspecified (principal); R00.1 Bradycardia, unspecified; N40.0 Benign prostatic hyperplasia without lower urinary tract symptoms; C61 Malignant neoplasm of prostate; Z90.49 Acquired absence of other specified parts of digestive tract; Z79.899 Other long term (current) drug therapy
CPT/HCPCS: 36140; 36415; 71046; 80048; 80053; 80061; 83690; 84484; 85025; 85610; 85730; 93005; 93458; 96365; 96366; 96374; 96376; 99285; A9270; C1760; C1769; C1887; C1894; C8929; G0269; G0378; J1644; J2003; J2250; J2270; J2305; J3010; J7030; J7040; Q9957

== ENCOUNTER 2024-11-30 08:02 | Emergency (ER) | payer OTHER, SELFPAY ==
--- NOTE | 2024-11-30 08:04 | ED_ITS ---
HPI - Male Genitourinary General Chief complaint: Urogenital-Male Stated complaint: UTI symptoms Time Seen by Provider: 11/30/24 08:03 Source: patient Mode of arrival: ambulatory Limitations: no limitations History of Present Illness HPI Narrative: Jono is a 69-year-old male patient presenting to the clinic today with complaints of possible UTI. He reports he started to develop some pain over his bladder area last night and noticed that his urine was discolored. Recently had a prostatectomy 2 weeks ago due to prostate cancer by Dr. Serrato. States since the prostate to me he has been urinating well. Contacted the urologist office this morning and they recommend he be seen to rule out UTI. He denies any difficulty urinating. Denies any danisha blood in his urine. Feels as though he has a low grade fever. No body aches or chills. No back pain or abdominal pain. No nausea, vomiting, or diarrhea. History of kidney stones in the past. Related Data Home Medications ?Medication ?Instructions ?Recorded ?Confirmed ?Last Taken ?Type sildenafil (pulm.hypertension) 20 20 mg PO Q24H PRN se xual activity 05/15/24 05/15/24 05/14/24 20:00 History mg tablet tamsulosin 0.4 mg capsule 0.4 mg PO QAM 05/15/2405/1505/15/24 07:00 History Allergies Allergy/AdvReac Type Severity Reaction Status Date / Time No Known Allergies Allergy Verified 11/30/24 08:18 Review of Systems Review of Systems: Pertinent positives per HPI. Patient denies any chills, rash, headache, visual changes, dizziness, cough, runny nose, sore throat, shortness of breath, chest pain, palpitations, nausea, vomiting, diarrhea, constipation, abdominal pain. [facility] Past Medical History Medical History Prostate cancer BPH (benign prostatic hyperplasia) Surgical History Surgical History Hx of cholecystectomy Family History Family History Mother Congestive heart failure Clostridioides difficile infection Aspiration into airway Father Prostate carcinoma Emphysema of lung Alzheimer disease Sibling Blood disorder Splenic rupture Sibling Melanoma Sibling No significant past medical history Social History Social History Smoking status: Never smoker Alcohol intake: current Drinks per week: 1 Alcohol use details: occasional Substance use: never Substance use type: does not use Do You Feel Safe in your Home?: Yes Lack of Transportation: No Lack of Food: Never True Current Housing: I Have Housing Concerned About Future Housing: No Difficulty Paying Gas/Electric Bills: No Difficulty Paying for Meds: No Currently Unemployed: No Education: Bachelor's Degree Difficulty w/ Childcare or Family Care: No Living arrangements: with family Occupation/Education: retired Spiritual care concerns: No Comments At the time of my signature, I reviewed and agree with the nursing past medical, surgical, social, and family history. There is no relevant family history pertinent to the patient complaint. Exam Narrative: General: Well-developed, well nourished, in no apparent distress. Head: Normocephalic, atraumatic. Cardio: Regular rate and rhythm, s1 and s2 normal, no murmur appreciated. Resp: Clear to auscultation bilaterally, no rhonchi, rales, wheezing or rubs. Abdomen: Soft, pliable, bowel sounds present in all quadrants, suprapubic tender to palpation, no organomegly, no CVAT tenderness. Course Course Emergency Course: Portions of this record may have been created with voice recognition software. Level of Care: Express Care Visit Vital Signs Vital signs: Vital Signs Temperature 36.2 C L 11/30/24 08:13 Pulse Rate 100 11/30/24 08:13 Respiratory Rate 18 11/30/24 08:13 Blood Pressure 113/69 11/30/24 08:13 Pulse Oximetry 99 11/30/24 08:13 Oxygen Delivery Room Air 11/30/24 08:13 Temperature 36.2 C L 11/30/24 08:13 Pulse Rate 100 11/30/24 08:13 Respiratory Rate 18 11/30/24 08:13 Blood Pressure 113/69 11/30/24 08:13 Pulse Oximetry 99 11/30/24 08:13 Oxygen Delivery Room Air 11/30/24 08:13 Vital signs reviewed MDM - Male Genitourinary MDM Narrative Medical decision making narrative: At the time of visit patient is resting comfortably on the exam table. Patient appears to be nontoxic. Complaints of possible UTI. He reports he started to develop some pain over his bladder area last night and noticed that his urine was discolored. Recently had a prostatectomy 2 weeks ago due to prostate cancer by Dr. Serrato. Contacted the urologist office this morning and they recommend he be seen to rule out UTI. He denies any difficulty urinating. Denies any danisha blood in his urine. Feels as though he has a low grade fever. No body aches or chills. No back pain or abdominal pain. No nausea, vomiting, or diarrhea. History of kidney stones in the past. On exam patient has suprapubic tenderness. No CVAT tenderness. Bowel sounds present all 4 quadrants. Urinalysis dip ordered. Labs: Urine dip positive for leukocytes, blood, protein, and nitrates. We will send urine for culture. Plan: I suspect patient has a complicated UTI. Prescription for Bactrim DS was sent to the pharmacy. Recommend patient follow-up with his urologist on Monday pain Supportive measures were discussed with the patient and they voiced understanding discharge instructions and agrees to treatment plan. Return precautions reviewed Differential Diagnosis Differential diagnosis: Likely urinary tract infection (Postoperative infection) and urethritis Lab Data Labs: Lab Results 11/30/24 Range/Units 08:22 POC Urine Color Brown POC Urine Clarity Cloudy POC Urine pH 6.5 POC Ur Specif Austin 1.025 POC Urine Protein 3+ (Negative) POC Ur Glucose (UA) Negative (Negative) POC Urine Ketones Negative (Negative) POC Urine Blood 3+ (Negative) POC Urine Nitrite Positive (Negative) POC Urine Bilirubin Negative (Negative) POC Urine Urobilinogen 0.2 POC U Leukocyte Esteras 3+ (Negative) Discharge Plan Discharge Clinical Impression: Complicated urinary tract infection Patient Disposition: Home Condition: Stable Instructions: Antibiotic Form, Urinary Tract Infection in Men (ED) Additional Instructions: Urine positive for UTI. We will send urine for culture. Take Bactrim as prescribed Increase fluids and stay well hydrated If sexually active- pee before and after intercourse. Wear cotton panties Avoid tight clothing up against the genitals Follow up with your PCP in 1 week if symptoms persist. Contact urologist on Monday to schedule appointment for follow-up. Patient Language: Israeli Prescriptions: New sulfamethoxazole-trimethoprim [Bactrim DS] 800-160 mg tablet 1 tablet PO Q12H 10 Days Qty: 20 0RF No Action tamsulosin 0.4 mg capsule 0.4 mg PO QAM sildenafil (pulm.hypertension) 20 mg tablet 20 mg PO Q24H PRN (Reason: sexual activity) Follow-up/Referrals: Patric,Sreekanth Yen M.D. [Primary Care Provider] Time of Disposition: 08:30 Quality NIHSS Nursing Documentation ED NIHSS nursing documentation: reviewed/agree
--- OUTSIDE RECORDS SUMMARY | 2024-11-30 08:06 | XMS_ITS | Encounter Summary ---
Author Organization [facility] Healthcare Address [address] [place] [address] Care Team Providers Care Welding Rod Coater Name Role Phone Elmer Mandujano MD Primary Care Provider Fish Aguilera MD Primary Car e Provider Encounter Details Date Type Department Care Team (Late st Contact Info) Description 05/15/2024 Orders Only [facility] Health Information Management [address] [place] [id number] Scanning, Provider Social History Tobacco Use Types Packs/Day Years Used Date Smoking Tobacco: Never Smokeless Tobacco: Never Alcohol Use Standard Drinks/Week Comments Yes 0 (1 standard drink = 0.6 oz pure alcohol) half a glass of wine before bed Sex and Gender Information Value Date Recorded Sex Assigned at Not on file 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 Gender Identity Not on file Sexual Orientation Not on file documented as of this encounter Plan of Treatment Not on file documented as of this encounter Procedures Procedure Name Priority Date/Time Associated Diagnosis Comments CARDIOLOGY DOCUMENT SCAN 05/15/2024 documented in this encounter Results * Cardiology Document Scan (05/15/2024) Anatomical Region Laterality Modality Other us Provider Scanning CV CARDIAC SERVICES PROCEDURES Final Result documented in this encounter Visit Diagnoses Not on filedocumented in this encounter Care Teams Welding Rod Coater Relationship Specialty Start Date End Date Elmer Mandujano MD PCP - General Internal Medicine 03/02/17 06/20/24 Fish Aguilera MD [address] [address] PCP - General 06/21/24 documented as of this encounter
--- OUTSIDE RECORDS SUMMARY | 2024-11-30 08:06 | XMS_ITS | Clinical Summary ---
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 Gender Identity Not on file Sexual Orientation Not on file Obstetrics History Last Filed Vital Signs Vital Sign Reading Time Taken Comments Blood Pressure 120/72 04/10/2017 8:31 AM SUPPLY CHAIN INTERN Pulse 65 04/10/2017 8:31 AM SUPPLY CHAIN INTERN Temperature - - Respiratory Rate - - Oxygen Saturation 97% 04/10/2017 8:31 AM SUPPLY CHAIN INTERN Inhaled Oxygen Concentration - - Weight 77.1 kg (170 lb) 06/21/2024 7:39 AM CDT Height 167.6 cm (5' 6) 06/21/2024 7:39 AM CDT Body Mass Index 27.44 06/21/2024 7:39 AM CDT Plan of Treatment Health Maintenance Due Date Last Done Comments Colon Cancer Screening-Colonoscopy 1955 Depression Screening 1953 Fall Risk Assessment 1955 Hepatitis C Screening 1955 DTaP/Tdap/Td Vaccine (1 - Tdap) 1964 Hepatitis B Screening 1971 Abdominal Aortic Aneurysm (A AA) Screen 2018 09/10/2014, 08/24/2014 Well Visit 65+ 2018 Pneumococcal vaccine 65+ (2 of 2 - PCV) 01/19/2021 01/20/2020 Covid-19 Vaccine (3 - 2024-2 6 season) 2024 12/01/2020, 11/09/2020 Influenza Vaccine (#1) 2024 02/01/2021, 2019 Zoster Vaccine Completed 12/14/2018, 04/2018, 09/25/2018, Additional history exists Insurance [facility] CHOICE PLUS [facility] Care Teams Aircraft Engine Mechanic Relationship Specialty Start Date End Date Fish Aguilera MD [address] [place] [id number] PCP - General 06/21/24
--- OUTSIDE RECORDS SUMMARY | 2024-11-30 08:06 | XMS_ITS | Encounter Summary ---
Author Organization [facility] Address 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
--- OUTSIDE RECORDS SUMMARY | 2024-11-30 08:06 | XMS_ITS | Clinical Summary ---
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 Sexual Orientation Straight 05/14/2021 8: 47 AM BOTANY TECHNICIAN Last Filed Vital Signs Vital Sign Reading Time Taken Comments Blood Pressure 133/82 01/10/2022 9:20 AM CDT Pulse 77 01/10/2022 9:20 AM CDT Temperature 36.6 C (97.9 F) 01/10/2022 9:20 AM CDT Respiratory Rate - - Oxygen Saturation - - Inhaled Oxygen Concentration - - Weight 71.9 kg (158 lb 9.6 oz) 01/10/2022 9:20 A M CDT Height 167.6 cm (5' 6) 01/10/2022 9:20 AM CDT Body Mass Index 25.6 01/10/2022 9:20 AM CDT Plan of Treatment Health Maintenance Due Date Last Done Comments Colorectal Cancer Screening Colonoscopy (10 Years) 1953 Hepatitis C 1971 DTaP, Tdap and Td Vaccines (1 - Tdap) 1972 Annual Medicare Wellness Visit 2018 Pneumococcal Vaccine: 50+ Years (2 of 2 - PCV) 01/19/2021 01/20/2020 COVID-19 Vaccine (3 - season) 2024 11/30/2020, 11/09/2020 RSV Immunization or 60+ Years (1 - [...] complete this topic Insurance [employer] Care Teams Aluminum Molder Relationship Specialty Start Date End Date Elmer Mandujano MD [address] [place] [id number] PCP - General INTERNAL MEDICINE 07/31/20
--- OUTSIDE RECORDS SUMMARY | 2024-11-30 08:06 | XMS_ITS | Encounter Summary ---
Author Organization [facility] Address [address] [place] [address] Care Team Providers Care Superintendent Transportation Name Role Phone Jona Wall MD Primary Care Provider [phone] Encounter Details Date Type Department Care Team (Late st Contact Info) Description 10/08/2004 Outpatient Historical [facility] Jona Wall MD [address] [facility] [address] [facility] [address] [place] [address] Social History Tobacco Use Types Packs/Day Years Used Date Smoking Tobacco: Never Assessed Sex and Gender Information Value Date Recorded Sex Assigned at Not on file 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
--- OUTSIDE RECORDS SUMMARY | 2024-11-30 08:06 | XMS_ITS | Clinical Summary ---
Author Organization [facility] Address [address] [place] [address] Care Team Providers Care Media Consultant Outside Sales Name Role Phone Nataliia Thomas RN Unavailable [phone] Fish Aguilera MD Primary Care Provider [phone] Source Comments [facility],non-owned Affiliates and Associated Physician Practices is amultiple site organization consisting of ambulatory clinics and hospital sitesin [place], [place], [place] and [place]. This disclosure is being madepursuant to the Care Everywhere program and may not contain all information available regarding this patient. Last updated 17.[facility] Allergies No known active allergies Medications * Be aware that medications may not be up to date on this document. Alwaysverify current medications with the patient. venlafaxine XR 24hr (Effexor XR) 37.5 MG capsule Take 1 (one) capsule by mouth daily with breakfast 30 capsule 11 5 Active ERGOTHIONEINE PO Active GLUTATHIONE PO Activ e Other Holo plexus Active Other Myco tox Active Other Drainage milieu Active Other Liposomal mag glycinate Active Other Liposomal saffron Active oxyCODONE-aceta minophen (Percocet) 5-325 MG tabletIndicatio ns:Prostate cancer (HCC) Take 1 (one) tablet by mouth every 6 hours as needed for Pain 12 tablet 5 Active Flomax 0.4 MG capsule TAKE 1 CAPSULE BY MOUTH ONCE DAILY HALF AN HOUR FOLLOWING THE SAME MEAL EACH DAY 4 11/15/19 25 Discontinu ed(List Clean-Up) Active Problems Problem Noted Date Diagnosed Date Prostate cancer 11/13/2024 Chest pain 07/30/2016 Acute diverticulitis of intestine 08/24/2014 Anxiety Encounters Date Type Department Care Team Description 11/13/2024 7:22 AM CDT Anesthesia Event [facility] - Perioperative Surgery [address] [place] [id number] Radu Medina MD 11/13/2024 7:10 AM CDT - 11/13/2024 9:40 AM CDT Surgery [facility] - Perioperative Surgery [address] [place] [address] Sreekanth Spivey MD ROBOTIC ASSISTED RADICAL PROSTATECTOMY, LEFT SIDED PELVIC LYMPH NODE DISSECTION 11/13/2024 5:17 AM CDT - 11/14/2024 3:13 PM CDT Hospital Encounter [address] SURG/BARIATRIC [address] [place] [address] Sreekanth Spivey MD Surgery General Discharge Disposition: Home or Self Care 11/13/2024 Travel 10/29/2024 8:36 AM CDT - 10/29/2024 11:59 PM CDT Hospital Encounter [facility] [address] [place] [address] Sreekanth Spivey MD Discharge Disposition: Home or Self Care 10/29/2024 Results Follow-Up [facility] [address] [place] [address] Mary Manning, STAPLER HAND-HIGHWAY TRAFFIC CONTROL TECHNICIAN 10/29/2024 Travel from Last 3 Months Family History Medical History Relation Name Comments Cancer - Prostate Father Hypertension Mother Cancer - Colon Neg Hx Relation Name Status Comments Father Mother Social History Tobacco Use Types Packs/Day Years Used Date Smoking Tobacco: Never Smokeless Tobacco: Never Alcohol Use Standard Drinks/Week Comments Yes 3.3 (1 standard drink = 0.6 oz p ure alcohol) daily Hunger Vital Sign Answer Date Recorded Within the past 12 months, y ou worried that your food would run out before you got the money to buy more. Never true 11/14/19 25 Within the past 12 months, t he food you bought just didn't last and you didn't have money to get more. 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 [employer] Not on file No t on file Not on file Last Filed Vital Signs Vital Sign Reading Time Taken Comments Blood Pressure 146/74 11/14/2024 7:23 AM CDT Pulse 84 11/14/2024 7:23 AM CDT Temperature 36.8 C (98.2 F) 11/14/2024 7:23 AM CDT Respiratory Rate 17 11/14/2024 7:23 AM CDT Oxygen Saturation 99% 11/14/2024 7:23 AM CDT Inhaled Oxygen Concentration - - Weight 78 kg (171 lb 15.3 oz) 11/13/2024 5:00 AM CDT Height 162.6 cm (5' 4) 11/13/2024 5:00 AM CDT Body Mass Index 29.52 11/13/2024 5:00 AM CDT Plan of Treatment Health Maintenance Due Date Last Done Comments COLOGUARD (AGES 45-75) - COLON CA SCREENING 1953 COLON MONITORING 1953 COLONOSCOPY - COLON CA SCREENING 1953 CT COLONOGRAPHY - COLON CA SCREENING 1953 Colorectal Cancer Screening 1953 FIT - COLON CA SCREENING 1953 FLEX SIG - COLON CA SCREENING 1953 MEDICARE AWV 12 MONTHS 1953 HEPATITIS C SCREENING 03/29/1971 DTAP/TDAP/TD VACCINES (1 - Tdap) 1972 PNEUMOCOCCAL VACCINE 50+ (1 of 1 - PCV) 2003 ZOSTER VACCINE (1 of 2) 2003 Respiratory Syncytial Virus (RSV) Vaccine Pt: or over 60 yrs (1 - Risk 60-74 years 1-dose series) 2013 DEPRESSION SCREENING 03/20/2024 COVID-19 VACCINE (1 - 2023- season) 2024 INFLUENZA VACCINE (#1) 2024 LIPID TESTING 10/29/2027 10/28/2022, 01/18, 01/20/2020, Additional history exists SCREENING FOR DIABETES 10/30/2027 , 07/29/2016, 08/25/2014, Additional history exists HEPATITIS B VACCINE Aged Out No longe r eligible based on patient's age to complete this topic HIB VACCINE Aged Out No longer eligi ble based on patient's age to complete this topic HPV VACCINE Aged Out No longer eligi ble based on patient's age to complete this topic MENINGOCOCCAL (Group B) VACCINE SHARED DECISION-MAKING Aged Out No longer eligible based on patient's age to complete this topic MENINGOCOCCAL GROUPS A/C/Y/W VACCINE Aged Out No longer eligible based on patient's age to complete this topic Medical Devices Implanted Type Area Chrome Plater Device Identifier Shelf Expiration Date Model / Serial / Lot Mesh Implanted:Qty: 1 on 10/16/2012 by Shiv Lowe MD at [facility] 04/19/2017 [facility] / / [id number] Description:extended Procedures Procedure Name Priority Date/Time Associated Diagnosis Comments APHERESIS/TRANSFUSIO N ORDER 11/15/2024 5:58 PM CDT PATHOLOGY TISSUE EXAM (STL) Routine 11/13/2024 8:07 AM CDT Diagnosis unknown ENDOTRACHEAL TUBE NOTE Routine 11/13/2024 7:46 AM CDT MS LAPARO RADICAL PROSTATECTOMY 11/13/2024 7:06 AM CDT Special Needs INTUITIVE NOTIFIED (DM) BLOOD TYPE VERIFICATION Routine 11/13/2024 6:16 AM CDT CBC W AUTO DIFFERENTIAL STAT 10/29/2024 9:22 AM CDT Preop testing COMPREHENSIVE METABOLIC PANEL STAT 10/29/2024 9:22 AM CDT Preop testing TYPE + SCREEN PANEL STAT 10/29/2024 8 :56 AM CDT Preop testing from Last 3 Months Results * APHERESIS/TRANSFUSION ORDER (11/15/2024 5:58 PM CDT) Narrative 11/15/2024 5:58 PM CDT Ordered by an unspecified provider. us Scanned Document NURSING - VITAL SIGNS AND ASSES SMENT Final Result * PATHOLOGY TISSUE EXAM (STL) (11/13/2024 8:07 AM CDT) Case Report Surgical Pathology Report Case: [id number] Authorizing Provider: Sreekanth Spivey MD Collected: 11/13/2024 08:07 AM Ordering Location: [facility] Received: 11/13/2024 12:16 PM - Perioperative Surgery Pathologist: Mya Scott MD Specimens: A) - Prostate B) - Pelvic Lymph Nodes 11/15/2024 1:07 PM CDT [facility] Final Diagnosis A. Prostate, prostatectomy: -- Prostatic adenocarcinoma, [place] pattern 3+3 -- Tumor is seen in right lobe, involves 2 out of 24 blocks and <1 percent of tissue -- Negative for perineural invasion -- No evidence of angiolymphatic invasion -- No evidence of seminal vesicle involvement -- No evidence of extra prostatic tumor invasion -- Resection margins free of tumor B. Pelvic lymph nodes, dissection: -- Seminal vesicle tissue -- Adipose tissue -- No lymph node identified -- No evidence of malignancy 11/15/2024 1:07 PM CDT [facility] at 1307 CDT Clinical History Clinical history: prostate cancer Procedure/operative findings: robotic assisted prostatectomy with pelvic lymph node dissection 11/15/2024 1:07 PM CDT [facility] Gross Description Received in container A in formalin labeled Jono Nova, prostate is a 59 grams, 5.7 x 4.3 x 4.3 cm intact prostate with attached right seminal vesicle stump (0.8 x 0.7 cm), right vas deferens (3 x 0.5 cm), left seminal vesicle (2 x 1.5 cm), and left vas deferens (2.5 x 0.3 cm). The specimen is inked as follows: Right - yellow, left - green and rectal surface - black. The specimen is sectioned sequentially from apex to base. Sections show a uniform pink-cao nodule at the surface with no gross lesions or vague yellow nodules. Bondactor Machine Operator sections are submitted sequentially from apex to base as follows: A1 - Radial section of distal apical margin A2 - Radial section of left apical margin A3 - Radial section of right proximal urethral margin A4 - Radial section of left proximal urethral margin A5 - Right seminal vesicle and vas deferens A6 - Left seminal vesicle and vas deferens A7 - Individual section of right apex A8-A9 - Contiguous section of right mid A10-A11 - Contiguous section of right mid A12-A13 - Contiguous section of right base A14-A15 - Contiguous section of right base A16 - Individual section of left apex A17-A18 - Contiguous section of left mid A19-A20 - Contiguous section of left mid A21-A22 - Contiguous section of left base A23-A24 - Contiguous section of left base. Received in container B in formalin labeled Jono Nova, left pelvic lymph nodes is a 2.2 x 2.2 x 0.2 cm unremarkable fragment of adipose tissue and a 2.2 x 1.5 x 1 cm cao irregular tissue fragment grossly reminiscent of seminal vesicle. A lymph node is not grossly appreciated. The specimen is entirely submitted as follows: B1 - Possible seminal vesicle B2 - Entire fat. / 11/15/2024 1:07 PM CDT [facility] Disclaimer All histochemical and/or immunohistochemical results are interpreted with controls that demonstrate appropriate staining reactions before reporting results. Note on use of immunocytochemistry reagents: This test was developed and its performance characteristic determined by [facility], Department of Laboratory Medicine. It has not been cleared or approved by the U.S. Food and Drug Administration (FDA). The FDA has determined that such clearance or approval is not necessary. The test is used for clinical purpose. It should not be regarded as investigational or for research. This laboratory is certified to perform high complexity testing. The performance characteristics of the IHC/DENEEN assays have been validated on formalin-fixed paraffin embedded tissues only. The assays have not been validated on decalcified tissues. Results should be interpreted with caution. 11/15/2024 1:07 PM T [facility] Synoptic Report PROSTATE GLAND: Radical Prostatectomy PROSTATE GLAND: RADICAL PROSTATECTOMY - All Specimens 8th Edition - Protocol posted: 12/07/2022 SPECIMEN Procedure: Radical prostatectomy TUMOR Histologic Type: Acinar adenocarcinoma, conventional (usual) Histologic Grade: Grade: Grade group 1 (Nicolette Score 3 + 3 = 6) Intraductal Carcinoma (IDC): Not identified Treatment Effect: No known presurgical therapy TUMOR QUANTITATION: Estimated Percentage of Prostate Involved by Tumor: Less than 1% Extraprostatic Extension (EPE): Not identified Urinary Bladder Neck Invasion: Not identified Seminal Vesicle Invasion: Not identified Lymphatic and / or Vascular Invasion: Not Identified MARGINS Margin Status: All margins negative for invasive carcinoma REGIONAL LYMPH NODES Regional Lymph Node Status: Not applicable (no regional lymph nodes submitted or found) pTNM CLASSIFICATION (AJCC 8th Edition) Reporting of pT, pN, and (when applicable) pM categories is based on information available to the pathologist at the time the report is issued. As per the AJCC (Chapter 1, 8th Ed.) it is the managing physician s responsibility to establish the final pathologic stage based upon all pertinent information, including but potentially not limited to this pathology report. pT Category: pT2 pN Category: pN not assigned (no nodes submitted or found) 11/15/2024 1:07 PM CDT [facility] Embedded Images 11/15/2024 1:07 PM CDT [facility] Pathology/Cytology ENTIRE PROSTATE / Unknown 11/13/2024 8:07 AM CDT 11/13/2024 12:16 PM CDT Miscellaneous samples (specimen) PELVIC LYMPH NODES SAMPLING / Unknown 11/13/2024 8:26 AM CDT 11/13/2024 12:16 PM CDT Sreekanth Spivey MD LAB - PATHOLOGY/CYTOLOGY ORDERA BLES Final Result [facility] [address] [place] [address] * ETT LINE PERFORMABLE (11/13/2024 7:46 AM CDT) Narrative Blanca Kamara APRN-CRNA - 11/13/2024 7:46 AM CDT Blanca Kamara APRN-CRNA 11/13/2024 7:47 AM Endotracheal Tube Placement: Patient Location: OR. Intubation Event Date/Time: 11/13/2024 7:35 AM Procedure: intubation ([id number]) Procedure Section: Sedation: under general anesthesia. Indications for Airway Management: anesthesia Procedure pretreatments used? No Induction: standard IV Patient Position: sniffing Mask Ventilation: easy. Blade Type: Video Blade Size: 3 Laryngoscopy View: grade 1 (full cords) Intubation Adjuncts: stylet, video laryngoscope and Eschmann introducer Tube: endotracheal tube Placement: oral Tube type: cuff - inflated Tube Size (MM): 8 Depth of Insertion (CM): 21 Measured From: gums Cuff volume (mL): 8 Cuff Inflated With: air Number of Attempts: 2. Placement Verified By: direct visualization, bilateral breath sounds and CO2 monitor Tube secured with: adhesive tape. Dentition unchanged? Yes Difficult Airway? No. Procedure Start Time: 11/13/2024 7:35 AM. Staff Section Anesthesia Provider: Blanca Kamara APRN-TAPROOM ATTENDANT, Performed the procedure Additional Comments: Anterior airway, obtained with Eschmann on second attempt; No visible airway trauma . Radu Medina MD GENERAL ANESTHESIA ORDERABLES Fi nal Result * BLOOD TYPE VERIFICATION (11/13/2024 6:16 AM CDT) Pathologist [facility] ABO Rh A NEG 11/13/2024 7:1 3 AM CDT [facility] Blood Bank BLOOD SPECIMEN / Unknown Venipuncture / Unknown 11/13/2024 6:16 AM CDT 11/13/2024 6:31 AM CDT Sreekanth Spivey MD LAB - BLOOD BANK ORDERABLES Fin al Result [facility] [address] [phone] * CBC W AUTO DIFFERENTIAL (10/29/2024 9:22 AM CDT) Pathologist [facility] WBC 6.4 4.0 - 10.7 x10E9/L 10/29/2024 9:38 AM CDT [facility] RBC Count 4.81 4.30 - 5.80 x10E12/L 10/29/2024 9:38 AM CDT [facility] Hemoglobin 13.4 13.3 - 17.5 g/dL 10/29/2024 9:38 AM CDT [facility] Hematocrit 41.2 38.7 - 51.1 % 10/29/2024 9:38 AM CDT [facility] MCV 85.7 80.0 - 98.0 fL 10/29/2024 9:38 AM CDT [facility] MCH 27.9 26.7 - 33.6 pg 10/29/2024 9:38 AM CDT [facility] MCHC 32.5 31.7 - 36.3 g/dL 10/29/2024 9:38 AM CDT [facility] RDW-CV 13.3 11.3 - 14.8 % 10/29/2024 9:38 AM CDT [facility] Platelet Count 266 150 - 420 x10E9/L 10/29/2024 9:38 AM CDT [facility] MPV 9.8 7.8 - 11.4 fL 10/29/2024 9:38 AM CDT [facility] Neutrophil % 59.5 41.0 - 74.0 % 10/29/2024 9:38 AM CDT [facility] Lymphocyte % 27.3 17.0 - 47.0 % 10/29/2024 9:38 AM CDT [facility] Monocyte % 8.7 3.0 - 11.0 % 10/29/2024 9:38 AM CDT [facility] Eosinophil % 3.4 0.0 - 7.0 % 10/29/2024 9:38 AM CDT [facility] Basophil % 0.8 0.0 - 1.6 % 10/29/2024 9:38 AM CDT [facility] Immature Granulocytes % 0.3 0.0 - 1.0 % 10/29/2024 9:38 AM CDT [facility] Neutrophil Absolute 3.82 1.60 - 7.50 x10E9/L 10/29/2024 9:38 AM CDT [facility] Lymphocyte Absolute 1.75 1.00 - 4.40 x10E9/L 10/29/2024 9:38 AM CDT [facility] Monocyte Absolute 0.56 0.15 - 1.00 x10E9/L 10/29/2024 9:38 AM CDT [facility] Eosinophil Absolute 0.22 0.00 - 0.60 x10E9/L 10/29/2024 9:38 AM CDT [facility] Basophil Absolute 0.05 0.00 - 0.13 x10E9/L 10/29/2024 9:38 AM CDT [facility] Blood BLOOD SPECIMEN / Unknown Venipuncture / Unknown 10/29/2024 9:22 AM CDT 10/29/2024 9:33 AM CDT Mary Manning APRN-HIGHWAY TRAFFIC CONTROL TECHNICIAN LAB - HEMATOLOGY ORDERAB LES Final Result [facility] [address] [place] [address] * (ABNORMAL) COMPREHENSIVE METABOLIC PANEL (10/29/2024 9:22 AM CDT) [facility] Glucose 78 70 - 99 mg/dL 10/29/2024 9:54 AM CDT [facility] Sodium 137 136 - 145 mmol/L 10/29/2024 9:54 AM CDT [facility] Potassium 4.7 3.5 - 5.1 mmol/L 10/29/2024 9:54 AM CDT [facility] Chloride 109(H) 98 - 107 mmol/L 10/29/2024 9:54 AM CDT [facility] CO2 23 22 - 29 mmol/L 10/29/2024 9:54 AM CDT [facility] Calcium 8.8 8.4 - 10.4 mg/dL 10/29/2024 9:54 AM CDT [facility] Anion Gap 5(L) 6 - 16 mmol/L 10/29/2024 9:54 AM CDT [facility] BUN 23 7 - 26 mg/dL 10/29/2024 9:54 AM CDT [facility] Creatinine 0.81 0.72 - 1.25 mg/dL 10/29/2024 9:54 AM CDT [facility] Alkaline Phosphatase 63 40 - 150 U/L 10/29/2024 9:54 AM CDT [facility] ALT 18 6 - 57 U/L 10/29/2024 9:54 AM CDT [facility] AST 20 10 - 48 U/L 10/29/2024 9:54 AM CDT [facility] Protein Total 6.4 6.4 - 8.3 gm/dL 10/29/2024 9:54 AM CDT [facility] Albumin 4.0 3.1 - 4.5 gm/dL 10/29/2024 9:54 AM CDT [facility] Bilirubin Total 0.3 0.2 - 1.2 mg/dL 10/29/2024 9:54 AM CDT [facility] eGFR by CKD-EPI >90 >=90 mL/min/1.7 3 m2 10/29/2024 9:54 AM CDT [facility] Comment:Estimated Glomerular Filtration Rate (eGFR) calculated using the CKD-EPI Creatinine Equation (2020), per the National Kidney Foundation and [place] [employer]ph[employer] recommendations. Blood BLOOD SPECIMEN / Unknown Venipuncture / Unknown 10/29/2024 9:22 AM CDT 10/29/2024 9:33 AM CDT Mary Manning STAPLER HAND-HIGHWAY TRAFFIC CONTROL TECHNICIAN LAB - CHEMISTRY ORDERABL ES Final Result Performing Organization Address [facility] Co de Phone Number [facility] [address] [place] [address] * TYPE + SCREEN PANEL (10/29/2024 8:56 AM CDT) ABO Rh A NEG 10/29/2024 10:00 AM CDT [facility] Comment:No history; collect retype. Antibody Screen NEG 10:00 AM CDT [facility] Blood Bank BLOOD SPECIMEN / Unknown Venipuncture / Unknown 10/29/2024 8:56 AM CDT 10/29/2024 9:03 AM CDT Gilma Mejia DO LAB - BLOOD BANK ORDERABLES Fin al Result Performing Organization Address [facility] de Phone Number [facility] [address] [place], [place] [address] [phone] from Last 3 Months Insurance [facility] MEDICARE [facility] Care Address: [facility] [address] [phone] Advance Directives * Full Code (Latest Code Status on File) Date Activated Date Inactivated Comments 11/13/2024 9:21 AM 11/14/2024 4:21 PM * Full Code Date Activated Date Inactivated Comments 08/01/2016 8:31 AM 08/01/2016 5:39 PM * Full Code Date Activated Date Inactivated Comments 07/30/2016 3:20 AM 08/01/2016 8:31 AM * Full Code Date Activated Date Inactivated Comments 07/29/2016 7:39 PM 07/30/2016 3:20 AM * Full Code Date Activated Date Inactivated Comments 08/24/2014 9:35 PM 08/27/2014 9:57 AM Care Teams Media Consultant Outside Sales Relationship Specialty Start Date End Date Fish Aguilera MD [address] [address] PCP - General Internal Medicine 03/29/24 Nataliia Thomas, RN One Piece Expansion Maker Hand 08/25/14
--- OUTSIDE RECORDS SUMMARY | 2024-11-30 08:06 | XMS_ITS | Encounter Summary ---
Author Organization [facility] Address [address] [place] [address] Care Team Providers Care Wet End Supervisor Name Role Phone Elmer Mandujano MD Primary Care Provider + Nataliia Thomas RN Unavailable [phone] Elmer Mandujano MD Primary Care Provider + Fish Aguilera MD Primary Care Provider [phone] Encounter Details Date Type Department Care Team (Late st Contact Info) Description 05/11/2018 Lab Requisition [facility] Care DermPath Lab [address] [place] [address] Brina Franco DO [address] [facility] [address] [place] [address] Social History Tobacco Use Types Packs/Day Years Used Date Smoking Tobacco: Never Smokeless Tobacco: Never Alcohol Use Standard Drinks/Week Comments Yes 3.3 (1 standard drink = 0.6 oz p ure alcohol) occ Sex and Gender Information Value Date Recorded Sex Assigned at Not on file Legal Sex Male 6:22 AM TIMBER TREATING TANK OPERATOR Gender Identity Not on file Sexual Orientation Not on file Occupation Industry Job Start Date Job End Date 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 Answer Date of Assessment Author No 08/01/2016 4:04 PM Estefania Suarez RN * Is person blind or have serious difficulty seeing? Answer Date of Assessment Author No 08/01/2016 4:04 PM Estefania Suarez RN * Does person have serious difficulty walking/climbing stairs? Answer Date of Assessment Author No 08/01/2016 4:04 PM Estefania Suarez RN * Does person have difficulty dressing/bathing? Answer Date of Assessment Author No 08/01/2016 4:04 PM Estefania Suarez RN * Does person have difficulty doing errands alone? Answer Date of Assessment Author No 08/01/2016 4:04 PM Estefania Suarez RN documented as of this encounter Mental Status * Does person have difficulty concentrating/remembering/making decisions? Answer Entry Date Author No 08/01/2016 4:04 PM Estefania Suarez RN documented in this encounter Plan of Treatment Not on file documented as of this encounter Procedures Procedure Name Priority Date/Time Associated Diagnosis Comments DERMATOPATH TECHNICAL REPORT Routine 05/10/2018 12:00 AM TIMBER TREATING TANK OPERATOR documented in this encounter Results * DERMATOPATH TECHNICAL REPORT (05/10/2018 12:00 AM TIMBER TREATING TANK OPERATOR) Case Report Dermatopathology Report Case: [id number] Authorizing Provider: Brina Franco DO Collected: 05/10/2018 12:00 AM Pathologist: Maria Elena Chan MD Received: 05/11/2018 06:27 AM Specimen: Skin, right post shoulder 9 11:13 AM [facility] DERMATOPATHOLOGY LABORATORY Clinical History Crusted pink papule. ISK R/O SCC non-healing. 9 11:13 AM [facility] DERMATOPATHOLOGY LABORATORY Gross Description Specimen A: Received is one formalin filled container labeled with the patient's name and designated right post shoulder. The specimen consists of a shave measuring [id number]. Jar 0. [facility] Dermatopathology Laboratory performed the technical component only. 9 11:13 AM [facility] DERMATOPATHOLOGY LABORATORY Embedded Images 11:13 AM [facility] DERMATOPATHOLOGY LABORATORY DISCLAIMER An external and internal positive and negative controls are appropriate for the histochemical, immunohistochemical and immunofluorescence stain(s) in this case (if any), except where stated explicitly. The performance characteristics of the stain(s) cited in this report were developed and its performance characteristic determined by the Dermatopathology Laboratory at [facility], directed by Dr. Jessika Andrade. These tests need not be, and therefore are not, approved by the [place] Food and Drug Administration. The tests are used for clinical purposes. 9 11:13 AM TIMBER TREATING TANK OPERATOR DERMATOPATHOLOGY LABORATORY at [address]3 TIMBER TREATING TANK OPERATOR Pathology/Cytolog y TISSUE SPECIMEN FROM SKIN / Unknown 05/10/2018 05/11/2018 6:27 AM TIMBER TREATING TANK OPERATOR us Brina Franco DO LAB - PATHOLOGY/CYTOLOGY ORDERABLES Final Result DERMATOPATHOLOGY LABORATORY [facility] - Department of Dermatology [address] 5th Floor Lab [address] [place], [place] [address] [phone] documented in this encounter Visit Diagnoses Not on filedocumented in this encounter Care Teams Wet End Supervisor Relationship Specialty Start Date End Date Elmer Mandujano MD [address] [place] [address] PCP - General Internal Medicine 09/05/12 01/15/23 Elmer Mandujano MD [address] [place] [address] PCP - General Internal Medicine 01/16/23 03/28/24 Fish Aguilera MD [facility] [place] [address] [place], [place] [id number] PCP - General Internal Medicine 03/29/24 Nataliia Thomas, RN Harvest Worker 08/25/14 documented as of this encounter
--- OUTSIDE RECORDS SUMMARY | 2024-11-30 08:07 | XMS_ITS | Patient Health Record ---
Author Organization [facility] Address [address] [place] [address] Care Team Providers Care Prepress Stripper Name Role Phone Ra Burkett Primary Care Provider Bobby Glover Unavailable Unavailable Reason For Referral No Information Medications Medication SIG (Take, Route, Frequency, Duration) Notes Start Date End Date Status Fluoxetine Acute Active State (Ron) Active Plan Of Treatment No Information
--- OUTSIDE RECORDS SUMMARY | 2024-11-30 08:07 | XMS_ITS | Clinical Summary ---
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 Gender Identity Not on file Sexual Orientation [...] 2:54 PM CDT Height 167.6 cm (5' 6) 07/29/2016 2:54 PM CDT Body Mass Index 25.82 07/29/2016 2:54 PM CDT Plan of Treatment Health Maintenance Due Date Last Done Comments DTAP/TDAP/TD VACCINES (1 - Tdap) 1972 COLORECTAL SCREENING 1998 Colorectal Cancer Screening 1998 FIT-DNA Q 3 years 1998 FIT/FOBT Q 1 year 1998 Flex Sig/CT Colonography Q 5 years 1998 PNEUMOCOCCAL VACCINE 50+ YEARS (1 of 1 - PCV) 04/02/19 04 ZOSTER VACCINE (1 of 2) 2003 INFLUENZA VACCINE (#1) 2024 RSV VACCINE (60+ or ) (1 - 1-dose 75+ series) 2028 Insurance [facility] [employer] PPO [id number] Care Teams Community Engagement Specialist Relationship Specialty Start Date End Date Jona Wall MD [address] [id number] PCP - General 09/06/04
[2024-11-30 08:13] VITALS: BP 113/69; PULSE 100; RESP 18; TEMP 36.2; O2SAT 99
[2024-11-30 08:24] LABS: EDUAAPPEAR Cloudy; EDUABILI Negative (Negative); EDUABLOOD 3+ (Negative); EDUACOLOR1 Brown; EDUAGLUCOSE Negative (Negative); EDUAKETONE Negative (Negative); EDUALEUKO 3+ (Negative); EDUANITRATE Positive (Negative); EDUAPH 6.5; EDUAPROTEIN 3+ (Negative); EDUASPGRAVITY 1.025; EDUAUROBILI 0.2
== END 2024-11-30 08:37 | disposition home or self-care (01) ==
PROVIDERS: Emergency Provider Nurse Practitioner Family; PCP Urology
DX: N39.0 Urinary tract infection, site not specified (principal); Z85.46 Personal history of malignant neoplasm of prostate; Z90.79 Acquired absence of other genital organ(s)
CPT/HCPCS: 81003; 87077; 87086; 87186; 99213; G0463